=== PATIENT | male | born 1955 | race Caucasian/White ===

== ENCOUNTER → 2016-05-22 | Outpatient (CLI) | payer OTHER ==
[~2016-05-22] MED LIST: ALBU18002 INH; ALBU1AER9 INH; ASPI81TA28 PO; ATOR-26 PO; ATV/1 PO; BUPR10DI TOP; CYAN100048 SQ; CYM30 PO; DULO-24 PO; DULO60CA44 PO; ERGO50002 PO; FERR325T5 PO; FLNIN/ NAE; FLUT0.15 NAE; GEMF600T PO; LRS10 PO; METO25TA56 PO; NALO1SPR; NTRGSL4; OXYC-106 PO; OXYC1TAB3 PO; OXYC20TA32 PO; PANT40TA PO; POLY335019 PO; PRVHFAIN INH; TRAZ-120 PO; VNTHFA/IN INH; WLLXL300 PO
== END ==
LOC: C.LAB 02:24
DX: Z02.83 Encounter for blood-alcohol and blood-drug test (principal)

== ENCOUNTER 2016-06-06 18:22 | Emergency (ER) | payer OTHER ==
[~2016-06-06] VITALS: Ht 182.9 cm; Wt 100.6 kg
[~2016-06-06 18:22] MED LIST changes: -ALBU18002 INH; -ASPI81TA28 PO; -ATOR-26 PO; -BUPR10DI TOP; -CYAN100048 SQ; -DULO-24 PO; -DULO60CA44 PO; -ERGO50002 PO; -FERR325T5 PO; -FLUT0.15 NAE; -LRS10 PO; -NALO1SPR; -NTRGSL4; -OXYC1TAB3 PO; -PANT40TA PO; -POLY335019 PO; -PRVHFAIN INH; -TRAZ-120 PO; -VNTHFA/IN INH; -WLLXL300 PO
[2016-06-06 18:26] VITALS: TEMP 36.9; Ht 182.9 cm; Wt 100.6 kg
[2016-06-06] MEDS ORDERED: MoRPHine SULFATE 10 MG/ML CARP/VIAL IM STA (19:04)
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
[2016-06-06] MEDS ORDERED: ALBU18002 INH (19:50)
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
[2016-06-06 20:38] VITALS: BP 122/61; PULSE 61; O2SAT 97
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
[2016-10-11] MEDS ORDERED: TRAZ-120 PO (00:39)
[2016-10-11] MEDS ORDERED: PANT40TA PO (10:00)
[2016-10-11] MEDS ORDERED: WLLXL300 PO (10:04)
[2016-10-11] MEDS ORDERED: ATOR-26 PO (10:43)
[2016-10-11] MEDS ORDERED: ASPI81TA28 PO (10:43)
[2016-10-11] MEDS ORDERED: LRS10 PO (10:47)
[2016-10-11] MEDS ORDERED: OXYC-106 PO (11:28)
[2017-01-01] MEDS ORDERED: OXYC20TA32 PO (13:22)
== END 2016-06-06 20:40 | disposition home or self-care (01) ==
LOC: C.EDB 18:23 → C.EDD 20:40
DX: S06.0X0A Concussion without loss of consciousness, initial encounter (principal); S16.1XXA Strain of muscle, fascia and tendon at neck level, initial encounter; S39.012A Strain of muscle, fascia and tendon of lower back, initial encounter; T14.8 Other injury of unspecified body region; V47.5XXA Car driver injured in collision with fixed or stationary object in traffic accident, initial encounter; Y92.488 Other paved roadways as the place of occurrence of the external cause; I25.10 Atherosclerotic heart disease of native coronary artery without angina pectoris; E11.9 Type 2 diabetes mellitus without complications; E78.5 Hyperlipidemia, unspecified; M10.9 Gout, unspecified; M19.90 Unspecified osteoarthritis, unspecified site; G47.30 Sleep apnea, unspecified; Z80.9 Family history of malignant neoplasm, unspecified; Z83.3 Family history of diabetes mellitus; Z82.49 Family history of ischemic heart disease and other diseases of the circulatory system; F17.210 Nicotine dependence, cigarettes, uncomplicated; Z79.82 Long term (current) use of aspirin; Z79.899 Other long term (current) drug therapy

== ENCOUNTER → 2016-06-14 | Day surgery (SDC) | payer OTHER ==
[~2016-06-14] MED LIST changes: +ACETAMINOPHEN 325 MG TAB PO PRN; +ALBU18002 INH; -ALBU1AER9 INH; +ASPI81TA28 PO; +ATOR-26 PO; +ATROPINE SULFATE 0.1 MG/ML 5ML SYR IV PRN; +ATROPINE SULFATE 1% OP SOLN 2 ML BTL ONE; -ATV/1 PO; +BUPIVACAINE HCL 0.75% 10 ML AMP/VIAL ONE; +BUPR10DI TOP; +CEFAZOLIN SOD 1 GM VIAL ONE; +CYAN100048 SQ; +DEXAMETHASONE SOD INJ 4 MG/ML VIAL ONE; +DULO-24 PO; +DULO60CA44 PO; +ERGO50002 PO; +EpHEDrine SULFATE INJ 50 MG/ML AMP IV PRN; +EpINEphrine INJ 1MG/ML AMP 1 MG/ML AMP ONE; +FENTANYL CITRATE INJ 50 MCG/1 ML 2 ML VIAL IV PRN; +FERR325T5 PO; +FLUT0.15 NAE; -GEMF600T PO; +HYALURONIDASE HUMAN 150 UNIT/ML INJ ONE; +INDOCYANINE GREEN 25 MG/10 ML ONE; +LACTATED RINGER'S 1000ML 500 ML IV SCH; +LIDOCAINE HCL 2% 2 ML VIAL (20MG/ML) ONE; +LIDOCAINE MPF 4% INJ INJ ONE; +LRS10 PO; -METO25TA56 PO; +MIDAZOLAM HCL 1 MG/ML 2ML VIAL ONE; +NALO1SPR; +NEOMYCIN/POLYMYX/DEXAMETH OP OINT PER APP CHARGE ONE; +NTRGSL4; +ONDANSETRON INJ 2 MG/ML 2 ML VIAL IV PRN; +OXYC1TAB3 PO; +PANT40TA PO; +POLY335019 PO; +PROPARACAINE 0.5% OP SOLN PER DROP CHARGE OPR SCH; +PROPOFOL IV EMULSION 10 MG/ML 20 ML VIAL IV ONE; +PRVHFAIN INH; +TETRACAINE HCL (OPHTH) 60 DROPS/4 ML BTL OP ONE; +TIMOLOL MALEATE 0.5% OP SOLN PER DROP CHARGE ONE; +TRAZ-120 PO; +TRIAMCINOLONE ACETONIDE OPHTH 40 MG/ML VIAL STERILE IO ONE; +VNTHFA/IN INH; +WLLXL300 PO
[2016-06-14] MEDS: PHENYLEPHRINE HCL 2.5% OP SOLN PER DROP CHARGE OPR SCH ×2 (11:41→11:46)
[2016-06-14] MEDS: TROPICAMIDE 1% OP SOLN PER DROP CHARGE OPR SCH (11:42)
--- NOTE | 2016-06-14 12:06 | History & Physical Bridge - SC ---
H&P Re-Evaluation Bridge Note: pt has retinal detachment in right eye and is here for vitrectomy of right eye. I have examined the patient, reviewed the History & Physical and in the interval since the performance of the History & Physical I have noted the following changes of clinical significance: No changes noted
--- NOTE | 2016-06-14 13:30 | [facility] Operative Report ---
Operative Report Date of Service Jun 14, 2016. Operative Report PREOPERATIVE DIAGNOSIS: Retinal detachment, vitreous hemorrhage right eye. ICD 10: H33.021 POSTOPERATIVE DIAGNOSIS: same. PROCEDURE: 1. Pars plana vitrectomy, 23 gauge. 2. Fluid-air exchange. 3. Endolaser. 4 Air-gas exchange with C3F8 12%. All to the right eye. CPT CODE: 40487 SURGEON: Jermaine Asher D.O. COMPLICATIONS: None. ESTIMATED BLOOD LOSS: None. SPECIMENS: None. ANESTHESIA: Retrobulbar block and MAC. INDICATIONS FOR PROCEDURE: Surgery is indicated to decrease risk of vision loss and potentially improve vision. CONSENT: The risks, benefits and alternatives were discussed with the patient including but not limited to decreased visual acuity, failure to achieve desired results, loss of the eye, infection, pain, glaucoma, lens changes, retinal tears, retinal detachment, the need for more procedures, drooping of the eyelid, blindness, and double vision. The patient is aware of risks and consents to the surgery. Consent is signed and on the chart. OPERATION AND FINDINGS: The patient was brought to the operating room where the patient was identified by name, date, and medical record number. The surgical site was confirmed with the informed written consent. The patient was sedated by the anesthesiology team after which a 50:50 mixture of 4% lidocaine and 0.75% bupivacaine with hyaluronidase was administered in a standard retrobulbar fashion. A total of 4 ml was administered without difficulty. The patient was then prepped and draped in the usual sterile manner for retinal surgery. A wire lid speculum was placed and an Nick 23-gauge trocar cannula system was employed. The inferior temporal trocar cannula was first placed in an angled fashion 3.75mm posterior to the surgical limbus and the infusion cannula was inserted into this cannula after which the intravitreal position was verified prior to turning the infusion on. Two more trocar cannulas were then inserted in an angled fashion, one in the superior temporal, and one in the superior nasal quadrant both 3.75mm posterior to the surgical limbus. A light pipe and vitrector were then introduced into the eye and the BIOM wide angle viewing system was brought into place. Posterior inspection revealed a dense vitreous hemorrhage and a retinal detachment from 8 to 2 o'clock with retinal breaks at 11:30 and 1 o'clock and the detachment extended into the superior macula but the fovea appeared flat. Standard core vitrectomy was performed and the vitreous was insured to be totally detached from the posterior pole with the aid of the vitrector. The vitreous base was shaved for 360 degrees. At this point scleral depression was performed for 360 degrees and no other retinal tears were noted. Fluid air exchange was performed and the subretinal fluid was drained through a small retinotomy site that was fashioned superior to the arcades. Endolaser was then used to place laser around the inciting retinal break and the drainage retinotomy. Next, an air gas exchange was performed with C3F8 12% for a complete fill of the eye. The trocar cannulas were then removed and found to be air tight. The intraocular pressure was found to be within normal limits by palpation and subconjunctival injections of Kefzol and dexamethasone were administered inferiorly and superiorly. The wire lid speculum was removed. Maxitrol, atropine and timolol were applied to the surface of the eye. A light patch and shield were taped over the surface of the eye and the patient left the Operating Room in stable condition having tolerated the procedure well. DISPOSITION: A gas bracelet was placed on the patient's wrist and gas precautions reviewed as well as the positioning instructions. The patient has an appointment the following morning in the Ophthalmology Clinic. The patient is to call immediately if there are any problems overnight. I attest to the content of the Intraoperative Record and any orders documented therein. Any exceptions are noted below.
[2016-06-14 13:31] VITALS: TEMP 36.2
--- NOTE | 2016-06-14 13:31 | Discharge Instructions-SurgCtr ---
Discharge Instructions Date of Service Jun 14, 2016. Visit Reason for Visit: Right Eye Retinal Detachment Discharge Discharge Diagnosis / Problem: same Discharge Goals Goal(s): Improve function Activity Recommendations Activity Limitations: per Instructions/Follow-up section Anesthesia . Post Anesthesia Instructions: If you have had General Anesthesia or IV Sedation: * Do not drive today. * Resume driving when surgeon permits. * Do not make important decisions or sign legal documents today. * Call surgeon for: 1. Temperature elevations greater than 101 degrees F. 2. Uncontrollable pain. 3. Excessive bleeding. 4. Persistent nausea and vomiting. 5. Medication intolerance (nausea, vomiting or rash). * For nausea and vomiting use only clear liquids such as: tea, soda, bouillon until nausea subsides, then gradually increase diet as tolerated. * If you have any concerns or questions, call your surgeon's office. If physician is unavailable and it is an emergency, call 911 or go to the nearest emergency room. . Instructions / Follow-Up Instructions / Follow-Up * May take Tylenol if needed for discomfort. * Do NOT lay flat on back and position head as follows: face forward chin down. may sleep left side down * Do NOT remove green bracelet until instructed to do so by your surgeon and follow these precautions: * No air travel * No travel above 2500 feet * No nitrous oxide (N2O). * Do NOT remove eye shield. * NO straining, heavy lifting (>15 pounds) or bending below waist. * Avoid getting water or soap directly into operative eye. * Do NOT rub eye. If you experience increasing eye pain not relieved by medication, please contact us immediately at [phone]. If you are unable to reach someone at the above number, call [phone] and ask to speak with the EYE DOCTOR CIVIL ENGINEER'S AIDE. Inform them that you are a Dr. Asher patient who had recent surgery. Diet Recommendations Home Diet: resume previous diet Procedures Procedures Performed: Right Eye 23 Gauge Vitrectomy, Endolaser And Gas Insertion Pending Studies Studies pending at discharge: no Medical Emergencies . Who to Call and When: Medical Emergencies: If at any time you feel your situation is an emergency, please call 911 immediately. . Non-Emergent Contact Non-Emergency issues call your: Trailhead Maintenance Worker . . "Provider Documentation" section prepared by Jermaine Asher. .
[2016-06-14 13:55] VITALS: BP 103/56; PULSE 55; O2SAT 95
--- NOTE | 2016-06-14 14:00 | Anesthesia Progress Nt - [facility] ---
Anesthesia Post Op Note Date & Time Jun 14, 2016 at 14:00 Vital Signs Pain Intensity: 4 Vital Signs Past 12 Hours Date Time Temp Pulse Resp B/P Pulse Ox O2 Delivery O2 Flow Rate FiO2 06/14/16 13:31 36.2 84 14 119/68 97 Room Air 06/14/16 11:33 37.0 59 18 119/72 94 Room Air Notes Mental Status: alert / awake / arousable, participated in evaluation Pt Amnestic to Procedure: Yes Nausea / Vomiting: adequately controlled Pain: adequately controlled Airway Patency, RR, SpO2: stable & adequate BP & HR: stable & adequate Hydration State: stable & adequate Anesthetic Complications: no major complications apparent
== END | disposition home or self-care (01) ==
LOC: X.SURG 11:17
PROVIDERS: ATTEND Ophthalmology
DX: H33.021 Retinal detachment with multiple breaks, right eye (principal); E66.9 Obesity, unspecified; I25.10 Atherosclerotic heart disease of native coronary artery without angina pectoris; E11.9 Type 2 diabetes mellitus without complications; E78.5 Hyperlipidemia, unspecified; M10.9 Gout, unspecified; G47.30 Sleep apnea, unspecified; F17.200 Nicotine dependence, unspecified, uncomplicated; Z83.3 Family history of diabetes mellitus; Z82.49 Family history of ischemic heart disease and other diseases of the circulatory system

== ENCOUNTER 2016-10-11 15:37 | Observation (INO) | payer OTHER ==
[~2016-10-11] VITALS: Ht 182.9 cm; Wt 102.1 kg
[~2016-10-11 15:37] MED LIST changes: -ACETAMINOPHEN 325 MG TAB PO PRN; -ATROPINE SULFATE 0.1 MG/ML 5ML SYR IV PRN; -ATROPINE SULFATE 1% OP SOLN 2 ML BTL ONE; -BUPIVACAINE HCL 0.75% 10 ML AMP/VIAL ONE; -BUPR10DI TOP; -CEFAZOLIN SOD 1 GM VIAL ONE; -CYAN100048 SQ; -DEXAMETHASONE SOD INJ 4 MG/ML VIAL ONE; -DULO-24 PO; -DULO60CA44 PO; -ERGO50002 PO; -EpHEDrine SULFATE INJ 50 MG/ML AMP IV PRN; -EpINEphrine INJ 1MG/ML AMP 1 MG/ML AMP ONE; -FENTANYL CITRATE INJ 50 MCG/1 ML 2 ML VIAL IV PRN; -FERR325T5 PO; -FLUT0.15 NAE; -HYALURONIDASE HUMAN 150 UNIT/ML INJ ONE; -INDOCYANINE GREEN 25 MG/10 ML ONE; -LACTATED RINGER'S 1000ML 500 ML IV SCH; -LIDOCAINE HCL 2% 2 ML VIAL (20MG/ML) ONE; -LIDOCAINE MPF 4% INJ INJ ONE; -MIDAZOLAM HCL 1 MG/ML 2ML VIAL ONE; -NALO1SPR; -NEOMYCIN/POLYMYX/DEXAMETH OP OINT PER APP CHARGE ONE; -NTRGSL4; -ONDANSETRON INJ 2 MG/ML 2 ML VIAL IV PRN; -OXYC1TAB3 PO; -OXYC20TA32 PO; -POLY335019 PO; -PROPARACAINE 0.5% OP SOLN PER DROP CHARGE OPR SCH; -PROPOFOL IV EMULSION 10 MG/ML 20 ML VIAL IV ONE; -PRVHFAIN INH; -TETRACAINE HCL (OPHTH) 60 DROPS/4 ML BTL OP ONE; -TIMOLOL MALEATE 0.5% OP SOLN PER DROP CHARGE ONE; -TRAZ-120 PO; +TRAZ1TAB5 PO; -TRIAMCINOLONE ACETONIDE OPHTH 40 MG/ML VIAL STERILE IO ONE; -VNTHFA/IN INH
[2016-10-11] MEDS ORDERED: SODIUM CHLORIDE 0.9% 1000ML 1,000 ML IV STA (16:09)
[2016-10-11] MEDS ORDERED: ONDANSETRON 8 MG/54 ML D5W IV STA (16:09)
[2016-10-11] MEDS ORDERED: PANTOprazole INJ 40 MG in SYRINGE 0 ML IV ONE (16:15)
[2016-10-11] MEDS ORDERED: OPTIRAY 320 IV PRN (16:15)
[2016-10-11] MEDS ORDERED: POLY335019 PO (16:45)
[2016-10-11] MEDS ORDERED: FERR325T5 PO (16:45)
[2016-10-11] MEDS ORDERED: OXYC1TAB3 PO (16:45)
[2016-10-11] MEDS ORDERED: BUPR10DI TOP (16:45)
[2016-10-11 16:52] LABS: BASO % 0.4 %; BASO ABS # 0.04 K/uL (0-0.2); COMPLETE YES; EOS % 3.6 %; IG% 0.2 %; LYMPH % 17.5 %; LYMPH ABS # 1.64 K/uL (1.2-3.4); MEAN CELL VOLUME 84.4 fL (80-100); MEAN CORPUSCULAR HEMOGLOBIN 27.7 pg (25-34); MEAN CORPUSCULAR HGB CONC 32.8 g/dl (32-36); MEAN PLATELET VOLUME 10.2 fL (7.4-10.4); MONO % 5.1 %; NEUT % 73.2 %; PLATELET COUNT 203 K/uL (130-400); RED BLOOD COUNT 3.79 M/uL (4.7-6.1); WHITE BLOOD COUNT 9.36 K/uL (4.8-10.8)
[2016-10-11] MEDS ORDERED: DULO60CA44 PO (16:52)
[2016-10-11] MEDS ORDERED: FLUT0.15 NAE (16:52)
[2016-10-11] MEDS ORDERED: DULO-24 PO (16:52)
[2016-10-11] MEDS ORDERED: PRVHFAIN INH (16:54)
[2016-10-11 17:00] LABS: PROTHROMBIN TIME (PATIENT) 10.4 SECONDS (9.0-12.0)
[2016-10-11 17:12] LABS: ALT/SGPT 22 U/L (12-78); BLOOD UREA NITROGEN 37 mg/dl (7-18); CALCIUM 8.6 mg/dl (8.5-10.1); CARBON DIOXIDE 25 mmol/L (21-32); CHLORIDE 105 mmol/L (98-107); CREATININE 0.68 mg/dl (0.60-1.40); GLUCOSE 94 mg/dl (70-99); POTASSIUM 4.5 mmol/L (3.5-5.1); SODIUM 137 mmol/L (136-145)
[2016-10-11 17:16] LABS: ALKALINE PHOSPHATASE 71 U/L (45-117); AST/SGOT 18 U/L (15-37)
--- NOTE | 2016-10-11 17:41 | DIAGNOSTIC IMAGING REPORT ---
ANGIO ABD/PELVIS WITH CONTRAST CLINICAL HISTORY: 60 years-old Male presenting with abdominal and back pain, concern for gastrointestinal bleed. TECHNIQUE: Multidetector CT angiography of the abdomen and pelvis was performed after the administration of intravenous contrast. 3-D volumetric and/or maximum intensity projection (MIP) images were subsequently reconstructed for review. IV contrast: 94 mL of Optiray 320. A dose lowering technique was used consistent with the principles of ALARA (as low as reasonably achievable). COMPARISON: 08/20/2011. CT DOSE (mGy.cm): The estimated cumulative dose is 953.21 mGy.cm. FINDINGS: Internal Revenue Agent topogram: Unremarkable. Lung bases clear. Normal heart size. Coronary artery calcification are no pericardial or pleural effusion. Liver, gallbladder, pancreas, spleen, and adrenal glands normal allowing for phase of contrast. Well-defined hypodensities in the kidneys, some too small to characterize, but the left upper pole consistent with simple cyst. No hydronephrosis. Bladder incompletely distended. Uterus surgically absent. No adnexal masses. Postsurgical changes of antecolic Анна-en-Y gastric bypass. Both proximal and distal anastomoses patent. No bowel obstruction or evidence of complication. No free fluid or gas. Postsurgical changes along the right lower quadrant ventral abdominal wall. Resolution of prior proximal right thigh hematoma. No lymphadenopathy. Atherosclerosis of the abdominal aorta, which is normal in caliber. Celiac, superior mesenteric, bilateral single renal, inferior mesenteric, bilateral common and external iliac arteries patent. Bilateral common femoral and superficial and deep arteries patent. No extravasation of contrast into the bowel lumen to suggest site of active bleed. No high density intraluminal contents appreciated. Degenerative changes of the lumbar spine. IMPRESSION: No CT evidence of extravasation of intravascular contrast into the bowel lumen to suggest an active site of gastrointestinal hemorrhage. No acute intra-abdominal pathology. Atherosclerosis with patent vasculature. Postsurgical changes of antecolic Анна-en-Y gastric bypass without evidence of complication. Electronically signed by: Mahesh Fraga M.D. 10/11/2016 5:39 PM Dictated Date/Time: 10/11/2016 5:32 PM
[2016-10-11] MEDS ORDERED: FENTANYL CITRATE INJ 50 MCG/1 ML 2 ML VIAL IV STA (18:17)
[2016-10-11] MEDS ORDERED: ONDANSETRON INJ 2 MG/ML 2 ML VIAL IV PRN (19:00)
[2016-10-11] MEDS ORDERED: ALBUTEROL HFA 8 GM INHALER INH PRN (19:00)
[2016-10-11] MEDS ORDERED: ERGO50002 PO (19:08)
[2016-10-11] MEDS ORDERED: OXYC20TA32 PO (19:08)
[2016-10-11] MEDS ORDERED: NALO1SPR (19:08)
[2016-10-11] MEDS ORDERED: CYAN100048 SQ (19:08)
[2016-10-11] MEDS ORDERED: NTRGSL4 (19:08)
[2016-10-11] MEDS ORDERED: VNTHFA/IN INH (19:08)
[2016-10-11 20:25] VITALS: BP 114/69; PULSE 62; TEMP 36.9; O2SAT 98
[2016-10-11] MEDS ORDERED: IV FLUIDS COMPLETED PRN (20:30)
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
[2016-10-11] MEDS: PANTOprazole INJ 40 MG in SYRINGE 0 ML IV SCH (20:58)
[2016-10-11] MEDS ORDERED: BUPRENORPHINE 5 MCG/HR TDSY TD SCH (21:00)
[2016-10-11] MEDS: SODIUM CHLORIDE 0.9% 1000ML 1,000 ML IV SCH (21:00)
[2016-10-11] MEDS ORDERED: GLUCAGON FOR INJ 1 MG VIAL SQ PRN (21:00)
[2016-10-11] MEDS ORDERED: DEXTROSE 50% 50 ML SYR IV PRN (21:00)
[2016-10-11] MEDS ORDERED: GLUCOSE 40% GEL 15 GM TUBE PO PRN (21:00)
[2016-10-11] MEDS ORDERED: GLUCOSE 10 TABS/TUBE PO PRN (21:00)
[2016-10-11] MEDS: INSULIN ASPART 100 UNITS/ML 3 ML PEN SC SCH (21:00)
[2016-10-11] MEDS ORDERED: NURSING VERBAL MED ORDER ONE (21:45)
[2016-10-11] MEDS ORDERED: HYDROmorphone INJ 0.5 MG/0.5 ML SYR IV PRN (21:45)
[2016-10-11 23:14] VITALS: BP 114/69; PULSE 62; TEMP 36.9; O2SAT 96; Ht 182.9 cm; Wt 102.1 kg
[2016-10-11 23:17] VITALS: BP 114/65; PULSE 63; TEMP 37.1; O2SAT 96
[2016-10-11 23:25] LABS: HEMATOCRIT 28.1 % (42-52)
[2016-10-12] VITALS (13 sets, daily range): BP systolic 101–134; BP diastolic 59–70; PULSE 51–75; TEMP 36.4–37; O2SAT 95–100
[2016-10-12] MEDS: HYDROmorphone INJ 0.5 MG/0.5 ML SYR IV PRN ×5 (01:27→19:51)
[2016-10-12] MEDS ORDERED: HYDROmorphone INJ 0.5 MG/0.5 ML SYR IV PRN (04:00)
[2016-10-12] MEDS: SODIUM CHLORIDE 0.9% 1000ML 1,000 ML IV SCH ×2 (05:47→15:43)
[2016-10-12] MEDS: INSULIN ASPART 100 UNITS/ML 3 ML PEN SC SCH ×4 (06:30→20:01)
[2016-10-12] MEDS: PANTOprazole INJ 40 MG in SYRINGE 0 ML IV SCH ×2 (08:18→19:50)
[2016-10-12 10:55] LABS: BUN/CREATININE RATIO 45.3 (10-20); CALCIUM 7.9 mg/dl (8.5-10.1); CREATININE 0.6 mg/dl (0.60-1.40); PHOSPHORUS 3.1 mg/dl (2.5-4.9); POTASSIUM 3.8 mmol/L (3.5-5.1)
[2016-10-12 11:20] LABS: HEMATOCRIT 25.3 % (42-52)
[2016-10-12] MEDS: OXYCODONE HCL IR 5 MG TAB (IMMEDIATE RELEASE) PO PRN ×3 (13:25→22:01)
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
[2016-10-12] MEDS: FENTANYL CITRATE INJ 50 MCG/1 ML 2 ML VIAL ONE ×2 (14:33→15:41)
[2016-10-12] MEDS: MIDAZOLAM HCL 5 MG/ML 1 ML VIAL ONE ×2 (14:34→15:41)
[2016-10-12] MEDS ORDERED: MIDAZOLAM HCL 5 MG/ML 1 ML VIAL IV STA (14:45)
[2016-10-12] MEDS ORDERED: FENTANYL CITRATE INJ 50 MCG/1 ML 2 ML VIAL IV ONE (14:45)
--- NOTE | 2016-10-12 15:11 | GI REPORT ---
Procedure Date: 10/12/2016 2:56 PM Procedure: Upper GI endoscopy Indications: Melena Medicines: See the Anesthesia note for documentation of the administered medications Complications: No immediate complications. Estimated Blood Loss: Estimated blood loss: none. Procedure: Pre-Anesthesia Assessment: - ASA Grade Assessment: III - A patient with severe systemic disease. After obtaining informed consent, the endoscope was passed under direct vision. Throughout the procedure, the patient's blood pressure, pulse, and oxygen saturations were monitored continuously. The scope was introduced through the mouth, and advanced to the afferent jejunal loop. The upper GI endoscopy was accomplished without difficulty. The patient tolerated the procedure well. Findings: The gastroesophageal junction was normal. There was a gastroenteric anastamosis. There was a large cratered clean based ulcer on the gastric side of the anastamosis. A staple was seen at the anastamosis. The stomach pouch was otherwise unremarkable. The small intestine was normal. Impression: Clean based anastamotic ulcer. Recommendation: Pt is at low risk for recurrent bleed. Clear liquids only today and plan for d/c tomorrow. Please consider giving IV iron prior to discharge. Plan to discharge on BID PPI x 8 weeks, then repeat EGD in 8-10 weeks to survey site. Check Hp stool antigen. - Discharge patient to floor. Laurel Kessler M.D. Laurel Kessler MD 10/12/2016 3:10:37 PM This report has been signed electronically. Note Initiated On: 10/12/2016 2:56 PM I attest to the content of the Intraoperative Record and orders documented therein, exceptions below
--- NOTE | 2016-10-12 15:36 | Progress Note ---
Internal Med Progress Note Date of Service: Oct 12, 2016. Provider Documentation: SUBJECTIVE: The patient was seen and examined Admitted with symptomatic GI bleed Denies and Chest pain,palpitation or SOB Complains to have some pain in RLQ OBJECTIVE: Vital Signs-as noted below Exam: General-No distress at rest Anxious Eyes-normal ENT-normal Neck-supple Lungs-clear to ausucltate bilaterally Heart-Regular,no murmur Abdomen-Soft.mildly tender in RLQ .no guarding and or rigidity Extremities-No edema Neuro-AAOx3 Lab data as noted below. ASSESSMENT & PLAN: GI BLEED -Probable upper GI source; hx gastric bypass; hx upper GIB gastro-jejunal ulcer in 07/2015 -Hemodynamically stable; Hg is 10.5 (baseline 11's) -CTA A/P- No CT evidence of extravasation of intravascular contrast into the bowel lumen to suggest an active site of gastrointestinal hemorrhage. No acute intra-abdominal pathology. Atherosclerosis with patent vasculature. Postsurgical changes of antecolic Анна-en-Y gastric bypass without evidence of complication. Has been on NPO; IVF's; IV Protonix BID Hb Dropped to 8.3 this morning Appreciate GI input S/P EGD-No active bleeding area noted Continue BID PPI for 8 weeks IV Iron before discharge CAD S/P STENT 2011 Stable, no chest pain Aspirin held for GIB Continue statin No acute Chest pain HYPERTENSION BP is stable Not on antihypertensive at home DM TYPE 2 Diet controlled A1c 5.3 in 07/2016 Novolog sliding scale coverage CHRONIC PAIN Continue chronic oxycodone and buprenorphine patch [place] drug database queried; no issues identified Continue Home medication ,will try to limit any Extra narcotics SLEEP APNEA Continue CPAP DVT PROPHYLAXIS SCD's due to GIB FULL CODE DISPOSITION Observation telemetry Follows with Dr. Villarreal for primary care Vital Signs: Date Time Temp Pulse Resp B/P (MAP) Pulse Ox O2 Delivery O2 Flow Rate FiO2 10/12/16 15:00 60 20 97/32 97 Nasal Cannula 7 10/12/16 14:55 60 20 103/63 97 Nasal Cannula 5 10/12/16 14:48 51 20 112/60 96 Nasal Cannula 5 10/12/16 14:40 52 20 110/62 (78) 100 Nasal Cannula 4 10/12/16 13:50 Room Air 10/12/16 12:00 96 Room Air 10/12/16 11:09 36.9 57 16 108/59 (75) 97 10/12/16 08:04 36.4 60 16 134/63 (86) 100 10/12/16 08:00 96 Room Air 10/12/16 04:00 Room Air 10/12/16 04:00 36.4 59 18 105/59 (74) 96 Room Air 10/12/16 00:00 Room Air 10/11/16 23:17 37.1 63 20 114/65 (81) 96 Room Air 10/11/16 23:14 36.9 62 16 114/69 96 Room Air 10/11/16 20:25 36.9 62 16 114/69 (84) 98 Room Air 10/11/16 17:35 68 18 127/54 99 Room Air 10/11/16 15:40 36.5 91 18 111/74 97 Room Air Lab Results: Results Past 24 Hours Test 10/11/16 16:27 10/11/16 20:59 10/11/16 23:05 10/12/16 00:27 Range/Units White Blood Count 9.36 4.8-10.8 K/uL Red Blood Count 3.79 4.7-6.1 M/uL Hemoglobin 10.5 9.2 14.0-18.0 g/dL Hematocrit 32.0 28.1 42-52 % Mean Corpuscular Volume 84.4 80-100 fL Mean Corpuscular Hemoglobin 27.7 25-34 pg Mean Corpuscular Hemoglobin Concent 32.8 32-36 g/dl Platelet Count 203 130-400 K/uL Mean Platelet Volume 10.2 7.4-10.4 fL Neutrophils (%) (Auto) 73.2 % Lymphocytes (%) (Auto) 17.5 % Monocytes (%) (Auto) 5.1 % Eosinophils (%) (Auto) 3.6 % Basophils (%) (Auto) 0.4 % Neutrophils # (Auto) 6.84 1.4-6.5 K/uL Lymphocytes # (Auto) 1.64 1.2-3.4 K/uL Monocytes # (Auto) 0.48 0.11-0.59 K/uL Eosinophils # (Auto) 0.34 0-0.5 K/uL Basophils # (Auto) 0.04 0-0.2 K/uL RDW Standard Deviation 47.2 36.4-46.3 fL RDW Coefficient of Variation 15.2 11.5-14.5 % Immature Granulocyte % (Auto) 0.2 % Immature Granulocyte # (Auto) 0.02 0.00-0.02 K/uL Prothrombin Time 10.4 9.0-12.0 SECONDS Prothromb Time International Ratio 1.0 0.9-1.1 Sodium Level 137 136-145 mmol/L Potassium Level 4.5 3.5-5.1 mmol/L Chloride Level 105 98-107 mmol/L Carbon Dioxide Level 25 21-32 mmol/L Anion Gap 7.0 3-11 mmol/L Blood Urea Nitrogen 37 7-18 mg/dl Creatinine 0.68 0.60-1.40 mg/dl Est Creatinine Clear Calc Drug Dose 143.9 ml/min Estimated GFR () 121.2 Estimated GFR (Non- 104.5 BUN/Creatinine Ratio 55.0 10-20 Random Glucose 94 70-99 mg/dl Lactic Acid Level 0.7 0.4-2.0 mmol/L Calcium Level 8.6 8.5-10.1 mg/dl Total Bilirubin 0.3 0.2-1 mg/dl Aspartate Amino Transf (AST/SGOT) 18 15-37 U/L Alanine Aminotransferase (ALT/SGPT) 22 12-78 U/L Alkaline Phosphatase 71 45-117 U/L Troponin I < 0.015 0-0.045 ng/ml Total Protein 6.8 6.4-8.2 gm/dl Albumin 3.4 3.4-5.0 gm/dl Globulin 3.4 2.5-4.0 gm/dl Albumin/Globulin Ratio 1.0 0.9-2 Bedside Glucose 87 98 70-99 mg/dl Test 10/12/16 00:53 10/12/16 05:13 10/12/16 05:52 10/12/16 11:10 Range/Units Bedside Glucose 98 88 70-99 mg/dl Hemoglobin 8.5 8.3 14.0-18.0 g/dL Hematocrit 26.0 25.3 42-52 % Sodium Level 141 136-145 mmol/L Potassium Level 3.8 3.5-5.1 mmol/L Chloride Level 109 98-107 mmol/L Carbon Dioxide Level 28 21-32 mmol/L Anion Gap 4.0 3-11 mmol/L Blood Urea Nitrogen 27 7-18 mg/dl Creatinine 0.60 0.60-1.40 mg/dl Est Creatinine Clear Calc Drug Dose 162.4 ml/min Estimated GFR () 127.6 Estimated GFR (Non- 110.1 BUN/Creatinine Ratio 45.3 10-20 Random Glucose 82 70-99 mg/dl Calcium Level 7.9 8.5-10.1 mg/dl Phosphorus Level 3.1 2.5-4.9 mg/dl Magnesium Level 2.0 1.8-2.4 mg/dl Test 10/12/16 11:53 Range/Units Bedside Glucose 96 70-99 mg/dl
[2016-10-12 17:35] LABS: HEMATOCRIT 25.6 % (42-52)
[2016-10-13] VITALS (12 sets, daily range): BP systolic 97–148; BP diastolic 53–69; PULSE 47–67; TEMP 35.7–37.1; O2SAT 96–100
[2016-10-13] MEDS: SODIUM CHLORIDE 0.9% 1000ML 1,000 ML IV SCH ×3 (01:35→22:26)
[2016-10-13] MEDS: OXYCODONE HCL IR 5 MG TAB (IMMEDIATE RELEASE) PO PRN ×6 (02:06→22:26)
[2016-10-13] MEDS: HYDROmorphone INJ 0.5 MG/0.5 ML SYR IV PRN ×6 (04:56→21:02)
[2016-10-13 06:59] LABS: HEMATOCRIT 25.5 % (42-52); MEAN CELL VOLUME 86.7 fL (80-100); MEAN CORPUSCULAR HEMOGLOBIN 26.9 pg (25-34); MEAN PLATELET VOLUME 9.5 fL (7.4-10.4); PLATELET COUNT 152 K/uL (130-400); RED BLOOD COUNT 2.94 M/uL (4.7-6.1); WHITE BLOOD COUNT 4.45 K/uL (4.8-10.8)
[2016-10-13 07:38] LABS: CALCIUM 7.8 mg/dl (8.5-10.1); CREATININE 0.63 mg/dl (0.60-1.40); POTASSIUM 3.8 mmol/L (3.5-5.1)
[2016-10-13] MEDS: PANTOprazole INJ 40 MG in SYRINGE 0 ML IV SCH (08:10)
[2016-10-13] MEDS: INSULIN ASPART 100 UNITS/ML 3 ML PEN SC SCH ×4 (08:11→20:57)
--- NOTE | 2016-10-13 10:36 | Progress Note ---
Progress Note Date of Service Oct 13, 2016. Progress Note Labs noted. Labs show mild drop in hgb - this is accompanied by a drop in WBC and platelet count that suggests that this change may be due to hemodilution. Diet advanced by PCP. He had a clean based ulcer on EGD yesterday, and is considered low risk for further bleed. Will give IV iron prior to d/c; he has also been ordered 1 U PRBC by hospitalist. Ok for d/c today once infusions complete. Please d/c on BID PPI; he also takes oral iron is on B12 supplementation. I will arrange for f/u EGD in 8 weeks.
[2016-10-13] MEDS ORDERED: POLYETHYLENE (MIRALAX) 17 GM PACK PO PRN (10:45)
[2016-10-13] MEDS: ATORVASTATIN 40 MG TAB PO SCH (12:02)
[2016-10-13] MEDS: PANTOprazole SOD 40 MG TAB PO SCH (12:02)
[2016-10-13] MEDS: BuPROPion XL 300 MG TABCR PO SCH (12:02)
[2016-10-13] MEDS: ASPIRIN 81 MG ECTAB PO SCH (12:02)
[2016-10-13] MEDS: BACLOFEN 10 MG TAB PO SCH ×2 (12:04→20:58)
--- NOTE | 2016-10-13 12:36 | Progress Note ---
Internal Med Progress Note Date of Service: Oct 13, 2016. Provider Documentation: SUBJECTIVE: The patient was seen and examined Admitted with symptomatic GI bleed Denies and Chest pain,palpitation or SOB S/P EGD -no bleeding ulcers OBJECTIVE: Vital Signs-as noted below Exam: General-No distress at rest Anxious Eyes-normal ENT-normal Neck-supple Lungs-clear to ausucltate bilaterally Heart-Regular,no murmur Abdomen-Soft.mildly tender in RLQ .no guarding and or rigidity Extremities-No edema Neuro-AAOx3 Lab data as noted below. ASSESSMENT & PLAN: GI BLEED-Recurrent and stopped -Probable upper GI source; hx gastric bypass; hx upper GIB gastro-jejunal ulcer in 07/2015 -Hemodynamically stable; Hg is 10.5 (baseline 11's) -CTA A/P- No CT evidence of extravasation of intravascular contrast into the bowel lumen to suggest an active site of gastrointestinal hemorrhage. No acute intra-abdominal pathology. Atherosclerosis with patent vasculature. Postsurgical changes of antecolic Анна-en-Y gastric bypass without evidence of complication. Has been on NPO; IVF's; IV Protonix BID Hb Dropped to 8.3 this morning Appreciate GI input S/P EGD-No active bleeding area noted Continue BID PPI for 8 weeks IV Iron before discharge-0rdered Hb dropped to <8.0 Will give 1 unit of PRBC CAD S/P STENT 2011 Stable, no chest pain Aspirin held for GIB Continue statin No acute Chest pain HYPERTENSION BP is stable Not on antihypertensive at home DM TYPE 2 Diet controlled A1c 5.3 in 07/2016 Novolog sliding scale coverage CHRONIC PAIN Continue chronic oxycodone and buprenorphine patch [place] drug database queried; no issues identified Continue Home medication ,will try to limit any Extra narcotics SLEEP APNEA Continue CPAP DVT PROPHYLAXIS SCD's due to GIB FULL CODE DISPOSITION Observation telemetry Follows with Dr. Villarreal for primary care Likely discharge this afternoon Vital Signs: Date Time Temp Pulse Resp B/P (MAP) Pulse Ox O2 Delivery O2 Flow Rate FiO2 10/13/16 12:28 Room Air 10/13/16 11:30 36.9 54 18 109/53 97 10/13/16 11:09 37.1 67 18 111/57 99 10/13/16 10:53 36.6 67 20 132/54 (80) 100 Room Air 10/13/16 08:15 Room Air 10/13/16 08:13 36.4 53 16 102/60 (74) 96 10/13/16 04:20 36.3 55 19 110/63 (79) 98 Room Air 10/13/16 04:00 Room Air 10/13/16 00:01 36.7 60 18 148/62 (90) 96 Room Air 10/13/16 00:00 Room Air 10/12/16 20:00 Room Air 10/12/16 20:00 36.6 58 18 118/60 (79) 98 Room Air 10/12/16 19:00 37.0 59 18 127/70 (89) 95 Room Air 10/12/16 18:16 36.7 75 16 110/59 (76) 98 10/12/16 18:16 36.7 75 16 110/59 (76) 98 10/12/16 17:14 36.8 53 16 110/61 (77) 96 10/12/16 16:41 36.6 54 17 114/62 (79) 97 10/12/16 16:17 36.5 51 16 101/59 (73) 96 10/12/16 16:16 36.9 55 17 111/65 (80) 97 10/12/16 16:00 97 Room Air 10/12/16 15:32 58 20 105/50 (68) 97 Room Air 10/12/16 15:18 58 20 108/53 (71) 100 Nasal Cannula 4 10/12/16 15:05 54 20 101/74 (83) 100 Nasal Cannula 4 10/12/16 15:00 60 20 97/32 97 Nasal Cannula 7 10/12/16 14:55 60 20 103/63 97 Nasal Cannula 5 10/12/16 14:48 51 20 112/60 96 Nasal Cannula 5 10/12/16 14:40 52 20 110/62 (78) 100 Nasal Cannula 4 10/12/16 13:50 Room Air Lab Results: Results Past 24 Hours Test 10/12/16 17:01 10/12/16 17:08 10/12/16 19:56 10/13/16 00:05 Range/Units Hemoglobin 8.4 14.0-18.0 g/dL Hematocrit 25.6 42-52 % Bedside Glucose 89 105 110 70-99 mg/dl Test 10/13/16 06:24 10/13/16 07:45 10/13/16 11:35 Range/Units White Blood Count 4.45 4.8-10.8 K/uL Red Blood Count 2.94 4.7-6.1 M/uL Hemoglobin 7.9 14.0-18.0 g/dL Hematocrit 25.5 42-52 % Mean Corpuscular Volume 86.7 80-100 fL Mean Corpuscular Hemoglobin 26.9 25-34 pg Mean Corpuscular Hemoglobin Concent 31.0 32-36 g/dl RDW Standard Deviation 48.7 36.4-46.3 fL RDW Coefficient of Variation 15.2 11.5-14.5 % Platelet Count 152 130-400 K/uL Mean Platelet Volume 9.5 7.4-10.4 fL Sodium Level 143 136-145 mmol/L Potassium Level 3.8 3.5-5.1 mmol/L Chloride Level 110 98-107 mmol/L Carbon Dioxide Level 30 21-32 mmol/L Anion Gap 3.0 3-11 mmol/L Blood Urea Nitrogen 13 7-18 mg/dl Creatinine 0.63 0.60-1.40 mg/dl Est Creatinine Clear Calc Drug Dose 155.1 ml/min Estimated GFR () 125.0 Estimated GFR (Non- 107.9 BUN/Creatinine Ratio 20.0 10-20 Random Glucose 91 70-99 mg/dl Calcium Level 7.8 8.5-10.1 mg/dl Phosphorus Level 3.0 2.5-4.9 mg/dl Magnesium Level 2.0 1.8-2.4 mg/dl Bedside Glucose 103 120 70-99 mg/dl
[2016-10-13] MEDS ORDERED: IRON SUCROSE INJ 200 MG in SODIUM CHLORIDE 0.9% 100ML 100 ML IV SCH (14:00)
[2016-10-13] MEDS: DULOXETINE HCL 60 MG CAP PO SCH (14:12)
[2016-10-13] MEDS: DULOXETINE HCL 20 MG CAP PO SCH (14:12)
[2016-10-13] MEDS: FERROUS SULFATE 325 MG TAB PO SCH (20:58)
[2016-10-13] MEDS ORDERED: TRAZODONE HCL 50 MG TAB PO SCH ×2 (21:00)
[2016-10-13] MEDS ORDERED: NURSING VERBAL MED ORDER ONE (22:00)
[2016-10-14] MEDS: HYDROmorphone INJ 0.5 MG/0.5 ML SYR IV PRN (02:10)
[2016-10-14] MEDS: OXYCODONE HCL IR 5 MG TAB (IMMEDIATE RELEASE) PO PRN ×3 (03:33→12:41)
[2016-10-14 04:25] VITALS: BP 114/69; PULSE 49; TEMP 36.3; O2SAT 98
[2016-10-14 07:39] VITALS: BP 121/72; PULSE 43; TEMP 36.5; O2SAT 97
[2016-10-14 08:00] VITALS: O2SAT 97
[2016-10-14] MEDS: DULOXETINE HCL 20 MG CAP PO SCH (08:11)
[2016-10-14] MEDS: BACLOFEN 10 MG TAB PO SCH ×2 (08:12→14:45)
[2016-10-14] MEDS: BuPROPion XL 300 MG TABCR PO SCH (08:12)
[2016-10-14] MEDS: ATORVASTATIN 40 MG TAB PO SCH (08:13)
[2016-10-14] MEDS: ASPIRIN 81 MG ECTAB PO SCH (08:14)
[2016-10-14] MEDS: PANTOprazole SOD 40 MG TAB PO SCH (08:14)
[2016-10-14] MEDS: FERROUS SULFATE 325 MG TAB PO SCH (08:14)
[2016-10-14] MEDS: DULOXETINE HCL 60 MG CAP PO SCH (08:15)
[2016-10-14] MEDS: INSULIN ASPART 100 UNITS/ML 3 ML PEN SC SCH ×2 (08:24→11:00)
[2016-10-14] MEDS: SODIUM CHLORIDE 0.9% 1000ML 1,000 ML IV SCH (08:27)
[2016-10-14] MEDS ORDERED: NURSING VERBAL MED ORDER ONE (08:45)
[2016-10-14 08:49] LABS: HEMATOCRIT 29.8 % (42-52); MEAN CELL VOLUME 87.6 fL (80-100); MEAN CORPUSCULAR HEMOGLOBIN 27.4 pg (25-34); MEAN CORPUSCULAR HGB CONC 31.2 g/dl (32-36); MEAN PLATELET VOLUME 9.7 fL (7.4-10.4); PLATELET COUNT 129 K/uL (130-400); WHITE BLOOD COUNT 4.47 K/uL (4.8-10.8)
[2016-10-14] MEDS ORDERED: FLUTICASONE PROPIONATE NA SPR 16 GM BTL NAE SCH (09:00)
--- NOTE | 2016-10-14 09:42 | Progress Note ---
Internal Med Progress Note Date of Service: Oct 14, 2016. Provider Documentation: SUBJECTIVE: The patient was seen and examined Admitted with symptomatic GI bleed Denies and Chest pain,palpitation or SOB S/P EGD -no bleeding ulcers Clinically much better today and willing to go home today OBJECTIVE: Vital Signs-as noted below Exam: General-No distress at rest Anxious Eyes-normal ENT-normal Neck-supple Lungs-clear to ausucltate bilaterally Heart-Regular,no murmur Abdomen-Soft.mildly tender in RLQ .no guarding and or rigidity Extremities-No edema Neuro-AAOx3 Lab data as noted below. ASSESSMENT & PLAN: GI BLEED-Recurrent and stopped -Probable upper GI source; hx gastric bypass; hx upper GIB gastro-jejunal ulcer in 07/2015 -Hemodynamically stable; Hg is 10.5 (baseline 11's) -CTA A/P- No CT evidence of extravasation of intravascular contrast into the bowel lumen to suggest an active site of gastrointestinal hemorrhage. No acute intra-abdominal pathology. Atherosclerosis with patent vasculature. Postsurgical changes of antecolic Анна-en-Y gastric bypass without evidence of complication. Has been on NPO; IVF's; IV Protonix BID Hb Dropped to 8.3 this morning Appreciate GI input S/P EGD-No active bleeding area noted Continue BID PPI for 8 weeks IV Iron before discharge-0rdered Hb dropped to <8.0 Received 1 unit of blood and also IV Iron Hb 9.3 today-will discharge home CAD S/P STENT 2011 Stable, no chest pain Aspirin held for GIB Continue statin No acute Chest pain HYPERTENSION BP is stable Not on antihypertensive at home DM TYPE 2 Diet controlled A1c 5.3 in 07/2016 Novolog sliding scale coverage CHRONIC PAIN Continue chronic oxycodone and buprenorphine patch [place] drug database queried; no issues identified Continue Home medication ,will try to limit any Extra narcotics SLEEP APNEA Continue CPAP DVT PROPHYLAXIS SCD's due to GIB FULL CODE DISPOSITION Observation telemetry Follows with Dr. Villarreal for primary care Discharge home today Vital Signs: Date Time Temp Pulse Resp B/P (MAP) Pulse Ox O2 Delivery O2 Flow Rate FiO2 10/14/16 08:00 97 Room Air 10/14/16 07:39 36.5 43 18 121/72 (88) 97 Room Air 10/14/16 04:25 36.3 49 16 114/69 (84) 98 Room Air 10/14/16 04:00 Room Air 10/14/16 00:00 Room Air 10/13/16 23:47 36.5 47 18 111/60 (77) 96 Room Air 10/13/16 20:00 Room Air 10/13/16 19:52 36.6 54 18 115/69 (84) 97 Room Air 10/13/16 16:44 36.9 60 18 125/68 (87) 97 Room Air 10/13/16 16:40 Room Air 10/13/16 12:45 36.7 61 18 97/55 100 10/13/16 12:28 Room Air 10/13/16 12:15 35.7 59 18 105/53 96 10/13/16 11:45 36.7 56 18 102/62 96 10/13/16 11:30 36.9 54 18 109/53 97 10/13/16 11:09 37.1 67 18 111/57 99 10/13/16 10:53 36.6 67 20 132/54 (80) 100 Room Air Lab Results: Results Past 24 Hours Test 10/13/16 11:35 10/13/16 16:20 10/13/16 20:18 10/14/16 07:47 Range/Units Bedside Glucose 120 104 151 95 70-99 mg/dl Test 10/14/16 08:39 Range/Units White Blood Count 4.47 4.8-10.8 K/uL Red Blood Count 3.40 4.7-6.1 M/uL Hemoglobin 9.3 14.0-18.0 g/dL Hematocrit 29.8 42-52 % Mean Corpuscular Volume 87.6 80-100 fL Mean Corpuscular Hemoglobin 27.4 25-34 pg Mean Corpuscular Hemoglobin Concent 31.2 32-36 g/dl RDW Standard Deviation 49.0 36.4-46.3 fL RDW Coefficient of Variation 15.3 11.5-14.5 % Platelet Count 129 130-400 K/uL Mean Platelet Volume 9.7 7.4-10.4 fL
[2016-10-14 11:16] VITALS: BP 119/65; PULSE 49; TEMP 36.7; O2SAT 97
[2016-10-14 12:00] VITALS: O2SAT 97
--- NOTE | 2016-10-14 13:43 | Discharge Instructions ---
Discharge Instructions Date of Service Oct 14, 2016. Admission Reason for Admission: Gi Bleed Discharge Discharge Diagnosis / Problem: Upper GI Bleeding Discharge Goals Goal(s): Prevent Disease Progression Activity Recommendations Activity Limitations: resume your previous activity . Instructions / Follow-Up Instructions / Follow-Up Dr Villarreal on 10/17/16 at 1:00PM.Please keep appointment with GI Current Hospital Diet Patient's current hospital diet: Diabetes Type 2 Diet Discharge Diet Recommended Diet: Low Sodium Diet (2gm Na) Pending Studies Studies pending at discharge: no Medical Emergencies . Who to Call and When: Medical Emergencies: If at any time you feel your situation is an emergency, please call 911 immediately. . Non-Emergent Contact Non-Emergency issues call your: Primary Care Provider . Past History Medical & Surgical History: (1) GI bleed (2) DM type 2 (diabetes mellitus, type 2) (3) PUD (peptic ulcer disease) (4) S/P gastric bypass (5) H/O colostomy (6) H/O inguinal hernia repair (7) S/p EGD (8) s/p laparoscopic liver procedure (9) Sleep apnea (10) Lumbar strain . "Provider Documentation" section prepared by French Andrea. . VTE Core Measure Inpt VTE Proph given/why not?: SCD's
[2016-10-14 14:22] VITALS: BP 119/65; PULSE 49; TEMP 36.7; O2SAT 97
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
== END 2016-10-14 14:50 | disposition home or self-care (01) ==
LOC: C.EDB 15:38 → C.MED 18:45 → ENRESERV 19:04 → C.MED 10-13 01:29
PROVIDERS: ADMIT Hospitalist; ATTEND Internal Medicine
DX: K92.1 Melena (principal); K27.9 Peptic ulcer, site unspecified, unspecified as acute or chronic, without hemorrhage or perforation; K44.9 Diaphragmatic hernia without obstruction or gangrene; I25.10 Atherosclerotic heart disease of native coronary artery without angina pectoris; M19.90 Unspecified osteoarthritis, unspecified site; G47.30 Sleep apnea, unspecified; F17.200 Nicotine dependence, unspecified, uncomplicated; E11.9 Type 2 diabetes mellitus without complications; Z86.010 Personal history of colon polyps; Z79.82 Long term (current) use of aspirin; Z98.84 Bariatric surgery status; Z98.61 Coronary angioplasty status; Z83.3 Family history of diabetes mellitus; Z82.49 Family history of ischemic heart disease and other diseases of the circulatory system

== ENCOUNTER 2016-12-29 12:37 | Inpatient (IN) | payer OTHER ==
[~2016-12-29] VITALS: Ht 182.9 cm; Wt 106.1 kg
[~2016-12-29 12:37] MED LIST changes: -ALBU18002 INH; +BUPR10DI TOP; +CYAN100048 SQ; -CYM30 PO; +DULO-24 PO; +DULO60CA44 PO; +ERGO50002 PO; +FERR325T5 PO; -FLNIN/ NAE; +FLUT0.15 NAE; +NALO1SPR; +NTRGSL4; -OXYC-106 PO; +OXYC20TA32 PO; +POLY335019 PO; +PRVHFAIN INH; +TRAZ-120 PO; -TRAZ1TAB5 PO
[2016-12-29] MEDS ORDERED: SODIUM CHLORIDE 0.9% 1000ML 1,000 ML IV STA (12:59)
[2016-12-29] MEDS ORDERED: ONDANSETRON INJ 2 MG/ML 2 ML VIAL IV STA (12:59)
[2016-12-29] MEDS ORDERED: PANTOprazole INJ 40 MG in SYRINGE 0 ML IV ONE (13:00)
[2016-12-29 13:24] LABS: BASO % 0.4 %; BASO ABS # 0.04 K/uL (0-0.2); COMPLETE YES; EOS % 1.6 %; HEMATOCRIT 37.4 % (42-52); IG% 0.2 %; LYMPH % 15.8 %; LYMPH ABS # 1.49 K/uL (1.2-3.4); MEAN CORPUSCULAR HEMOGLOBIN 27.8 pg (25-34); MEAN CORPUSCULAR HGB CONC 32.4 g/dl (32-36); MEAN PLATELET VOLUME 9.4 fL (7.4-10.4); MONO % 6.9 %; NEUT % 75.1 %; PLATELET COUNT 285 K/uL (130-400); RED BLOOD COUNT 4.35 M/uL (4.7-6.1); WHITE BLOOD COUNT 9.43 K/uL (4.8-10.8)
[2016-12-29 13:28] LABS: ISTAT CREATININE 0.8 mg/dl (0.6-1.3); ISTAT HEMOGLOBIN 13.3 g/dl (14.0-18.0); ISTAT IONIZED CALCIUM 1.17 mmol/l (1.12-1.32)
[2016-12-29 13:33] LABS: PARTIAL THROMBOPLASTIN RATIO 1.1; PROTHROMBIN TIME (PATIENT) 10.6 SECONDS (9.0-12.0)
[2016-12-29 13:41] LABS: ALT/SGPT 29 U/L (12-78); AST/SGOT 19 U/L (15-37); BLOOD UREA NITROGEN 11 mg/dl (7-18); BUN/CREATININE RATIO 13.5 (10-20); CALCIUM 9.2 mg/dl (8.5-10.1); CARBON DIOXIDE 27 mmol/L (21-32); CHLORIDE 104 mmol/L (98-107); CREATININE 0.82 mg/dl (0.60-1.40); GLUCOSE 101 mg/dl (70-99); SODIUM 141 mmol/L (136-145)
[2016-12-29] MEDS: MoRPHine SULFATE 4 MG/ML 1 ML CARP\\VIAL IV PRN ×3 (13:45→16:38)
[2016-12-29] MEDS ORDERED: OPTIRAY 320 IV PRN (13:45)
[2016-12-29 13:46] LABS: ALKALINE PHOSPHATASE 120 U/L (45-117)
--- NOTE | 2016-12-29 14:02 | DIAGNOSTIC IMAGING REPORT ---
ABDOMEN AND PELVIS CT WITH IV CONTRAST CT DOSE: 1087.53 mGy.cm HISTORY: Acute generalized abdominal pain and nausea with black stool and diarrhea status post recent hernia repair. History of prior GI bleed. GIB, post op pain TECHNIQUE: Multiaxial CT images of the abdomen and pelvis were performed following the use of intravenous contrast. A dose lowering technique was utilized adhering to the principles of ALARA. COMPARISON STUDY: CT 10/11/2016. FINDINGS: The lung bases are generally clear. No pneumoperitoneum identified. Imaged inferior cardiac chambers are within normal limits. Coronary arterial calcifications noted. The liver, spleen, pancreas, gallbladder and adrenal glands are within normal limits. Bilateral low attenuating renal cortical lesions suggesting cysts. Evaluation of the solid abdominal organs however is limited secondary to be beam hardening artifact, likely secondary to positioning of the patient's arms. Largest lesion measures 2.1 cm and the left. Focal area of slightly decreased attenuation, 1.3 cm the left kidney, image 126 series 3 is indeterminate and may reflect a complex cyst. No renal calculi or hydronephrosis. Bladder is unremarkable. Prostate contains central coarse calcifications. Mild atherosclerotic plaquing of the abdominal aorta. No bulky adenopathy. Postoperative changes compatible with prior Анна-en-Y gastric bypass. There is no bowel obstruction. No focal bowel wall thickening. The appendix is not clearly seen. No secondary signs of acute appendicitis. Surgical clips are again seen over the right 2 lower anterior abdominal wall 1. Small fluid collection is noted superficial to the surgical clips, 3.1 x 1.4 cm. Moderate body wall edema anteriorly. There is a large peripherally enhancing low attenuating collection of the central and left paracentral lower anterior abdominal wall, 3.9 x 4.0 x 4.1 cm in AP, transverse and coronal caudal dimensions. No intra-abdominal fluid collections identified. There is atrophy of the rectus muscular atrophy. Multilevel endplate degenerative changes of the spine. IMPRESSION: 1. Postoperative changes of the lower anterior abdominal wall with a large peripherally enhancing fluid collection of the central and left paracentral deep subcutaneous tissues measuring up to 3.9 x 12.0 x 4.1 cm suggesting postoperative seroma. Abscess or liquefied hematoma are considered less likely differential considerations. Additional smaller 3.1 cm fluid collection is noted adjacent to surgical clips of the right lower anterior abdominal wall. 2. No acute intra-abdominal or intrapelvic abnormality identified. 3. Prior Анна-en-Y gastric bypass. No bowel obstruction. Electronically signed by: Sandro Nunez M.D. 12/29/2016 2:01 PM Dictated Date/Time: 12/29/2016 1:46 PM
--- NOTE | 2016-12-29 14:04 | DIAGNOSTIC IMAGING REPORT ---
CHEST ONE VIEW PORTABLE HISTORY: 61 years-old Male ABDOMINAL PAIN/GI acute generalized abdominal pain COMPARISON: Chest radiograph 10/09/2015 TECHNIQUE: Portable upright AP view of the chest FINDINGS: Cardiomediastinal and hilar silhouettes are within normal limits. There is no pneumothorax, pleural effusion, focal airspace consolidation or overt pulmonary edema. Bones of the chest are grossly intact. Postoperative or posttraumatic changes of the distal left clavicle redemonstrated. There is a suggested remote fracture deformity of the distal right clavicle. IMPRESSION: No acute cardiopulmonary process. The above report was generated using voice recognition software. It may contain grammatical, syntax or spelling errors. Electronically signed by: Sandro Nunez M.D. 12/29/2016 2:03 PM Dictated Date/Time: 12/29/2016 2:01 PM
--- NOTE | 2016-12-29 14:12 | EMERGENCY ROOM VISIT NOTE ---
History Report prepared by Shirin: Neha Puente Under the Supervision of: Dr. Fede Mixon D.O. First contact with patient: 12:53 Chief Complaint: GI ASSESSMENT Stated Complaint: POPPIXA,BLACK SICH IN BELLY,LIGHTHEADED History of Present Illness The patient is a 61 year old male who presents to the Emergency Room with complaints of an episode of black stool this morning. The patient had hernia surgery 2 weeks ago. He has had some abdominal pain since. This morning, he had some diarrhea which was black and watery. It was also malodorous. His abdomen has been feeling sore since the BM. Yesterday he was feeling cold and lightheaded. He feels nauseous. He denies any fever, chills, vomiting, chest pain, SOB, or groin pain. He had a gastric bypass 3 years ago. He lost 170 lbs since then. He no longer has diabetes. He also had an OK with 4 stents placed. He denies any history of C diff or diverticulitis. He has had bleeding ulcers in the past which presented with similar symptoms. Source of History: patient Onset: this morning Position: other (global) Quality: other (black stool) Timing: other (episodic) Associated Symptoms: + nausea, + abdominal pain, + diarrhea, No fevers, No chills, No chest pain, No SOB, No vomiting Note: Pt reports feeling cold, lightheaded. Pt denies groin pain. Review of Systems See HPI for pertinent positives & negatives. A total of 10 systems reviewed and were otherwise negative. Past Medical & Surgical Medical Problems: (1) Benign neoplasm of colon (2) CAD (coronary artery disease) (3) Dizziness (4) DM type 2 (diabetes mellitus, type 2) (5) Dyslipidemia (6) GI bleed (7) Gout (8) Osteoarthritis (9) PUD (peptic ulcer disease) (10) Sleep apnea Surgical Problems: (1) H/O colostomy (2) H/O eye surgery (3) H/O inguinal hernia repair (4) H/O shoulder surgery (5) H/O ventral hernia repair (6) S/P colonoscopy (7) S/P coronary artery stent placement (8) S/p EGD (9) S/P gastric bypass (10) s/p laparoscopic liver procedure Family History Cancer FATHER (lung, ?esophageal) Diabetes mellitus MOTHER BROTHER GRANDFATHER GRANDMOTHER Heart disease FATHER (OK in 60s) Hypertension Social History Smoking Status: Former Smoker Alcohol Use: none Drug Use: none Marital Status: Housing Status: lives with family Occupation Status: disabled Current/Historical Medications Scheduled Aspirin (Aspirin Ec), 81 MG PO QAM Atorvastatin (Lipitor), 80 MG PO QAM Baclofen (Baclofen), 10 MG PO TID Bupropion HCl (Bupropion HCl Xl), 300 MG PO QAM Cyanocobalamin (Vitamin B-12), 1,000 MCG SQ MONTHLY Duloxetine Hcl (Cymbalta), 20 MG PO DAILY Duloxetine Hcl (Cymbalta), 60 MG PO DAILY Ergocalciferol (Drisdol), 1 TAB PO WK Ferrous Sulfate (Ferrous Sulfate), 325 MG PO BID Fluticasone Propionate (Nasal) (Flonase Allergy Relief), 2 SPRAYS PEDRITO DAILY Naloxone HCl (Narcan), UD Nitroglycerin (Nitrostat), UD Oxycodone Hcl (Oxycodone Hcl), 10 MG PO Q4H Pantoprazole (Protonix), 40 MG PO BID Trazodone Hcl (Desyrel), 50 MG PO HS Scheduled PRN Albuterol (Ventolin Hfa), 2 PUFFS INH QID PRN for SOB/Wheezing Polyethylene Glycol 3350 (Miralax), 17 GM PO DAILY PRN for Constipation Allergies Coded Allergies: No Known Allergies (Unverified , 12/29/16) Physical Exam Vital Signs Date Time Temp Pulse Resp B/P (MAP) Pulse Ox O2 Delivery O2 Flow Rate FiO2 12/29/16 16:09 44 20 140/65 98 Room Air 12/29/16 14:40 99 Room Air 12/29/16 14:23 50 18 133/79 99 Room Air 12/29/16 13:18 49 12/29/16 12:40 37.1 63 20 133/76 96 Room Air Physical Exam GENERAL: Patient is awake, alert, mildly anxious, and appears to be uncomfortable. EYES: The conjunctivae are clear. The pupils are round and reactive. EARS, NOSE, MOUTH AND THROAT: The nose is without any evidence of any deformity. Mucous membranes are moist tongue is midline NECK: The neck is nontender and supple. RESPIRATORY: Normal respiratory effort is noted there is no evidence of wheezing rhonchi or rales CARDIOVASCULAR: Regular rate and rhythm noted there no murmurs rubs or gallops normal S1 normal S2 GASTROINTESTINAL: The abdomen is moderately distended and diffusely tender. Large lower abdominal surgical scar noted. There was tenderness along the right lateral aspect of the surgical scar. There was no erythema, drainage, or dehiscence noted. There was RLQ tenderness to palpation. Rectal exam revealed black stool, heme positive. BACK: No midline tenderness or or step-off noted range of motion in flexion extension as well as rotation no signs of muscle spasm noted MUSCULOSKELETAL/EXTREMITIES: There is no evidence of gross deformity full range of motion is noted in the hips and shoulders SKIN: There is pedal edema bilaterally. NEUROLOGIC: Patient is awake alert and oriented x3 Medical Decision & Procedures ER Provider Diagnostic Interpretation: X-ray results as stated below per interpretation by me and the radiologist. Radiology results as stated below per my review and radiologist interpretation: CHEST ONE VIEW PORTABLE HISTORY: 61 years-old Male ABDOMINAL PAIN/GI acute generalized abdominal pain COMPARISON: Chest radiograph 10/09/2015 TECHNIQUE: Portable upright AP view of the chest FINDINGS: Cardiomediastinal and hilar silhouettes are within normal limits. There is no pneumothorax, pleural effusion, focal airspace consolidation or overt pulmonary edema. Bones of the chest are grossly intact. Postoperative or posttraumatic changes of the distal left clavicle redemonstrated. There is a suggested remote fracture deformity of the distal right clavicle. IMPRESSION: No acute cardiopulmonary process. The above report was generated using voice recognition software. It may contain grammatical, syntax or spelling errors. Electronically signed by: Sandro Nunez M.D. 12/29/2016 2:03 PM Dictated Date/Time: 12/29/2016 2:01 PM ABDOMEN AND PELVIS CT WITH IV CONTRAST CT DOSE: 1087.53 mGy.cm HISTORY: Acute generalized abdominal pain and nausea with black stool and diarrhea status post recent hernia repair. History of prior GI bleed. GIB, post op pain TECHNIQUE: Multiaxial CT images of the abdomen and pelvis were performed following the use of intravenous contrast. A dose lowering technique was utilized adhering to the principles of ALARA. COMPARISON STUDY: CT 10/11/2016. FINDINGS: The lung bases are generally clear. No pneumoperitoneum identified. Imaged inferior cardiac chambers are within normal limits. Coronary arterial calcifications noted. The liver, spleen, pancreas, gallbladder and adrenal glands are within normal limits. Bilateral low attenuating renal cortical lesions suggesting cysts. Evaluation of the solid abdominal organs however is limited secondary to be beam hardening artifact, likely secondary to positioning of the patient's arms. Largest lesion measures 2.1 cm and the left. Focal area of slightly decreased attenuation, 1.3 cm the left kidney, image 126 series 3 is indeterminate and may reflect a complex cyst. No renal calculi or hydronephrosis. Bladder is unremarkable. Prostate contains central coarse calcifications. Mild atherosclerotic plaquing of the abdominal aorta. No bulky adenopathy. Postoperative changes compatible with prior Анна-en-Y gastric bypass. There is no bowel obstruction. No focal bowel wall thickening. The appendix is not clearly seen. No secondary signs of acute appendicitis. Surgical clips are again seen over the right 2 lower anterior abdominal wall 1. Small fluid collection is noted superficial to the surgical clips, 3.1 x 1.4 cm. Moderate body wall edema anteriorly. There is a large peripherally enhancing low attenuating collection of the central and left paracentral lower anterior abdominal wall, 3.9 x 4.0 x 4.1 cm in AP, transverse and coronal caudal dimensions. No intra-abdominal fluid collections identified. There is atrophy of the rectus muscular atrophy. Multilevel endplate degenerative changes of the spine. IMPRESSION: 1. Postoperative changes of the lower anterior abdominal wall with a large peripherally enhancing fluid collection of the central and left paracentral deep subcutaneous tissues measuring up to 3.9 x 12.0 x 4.1 cm suggesting postoperative seroma. Abscess or liquefied hematoma are considered less likely differential considerations. Additional smaller 3.1 cm fluid collection is noted adjacent to surgical clips of the right lower anterior abdominal wall. 2. No acute intra-abdominal or intrapelvic abnormality identified. 3. Prior Анна-en-Y gastric bypass. No bowel obstruction. Electronically signed by: Sandro Nunez M.D. 12/29/2016 2:01 PM Dictated Date/Time: 12/29/2016 1:46 PM Laboratory Results 12/29/16 12:15 Red Blood Count 4.35, Mean Corpuscular Volume 86.0, Mean Corpuscular Hemoglobin 27.8, Mean Corpuscular Hemoglobin Concent 32.4, Mean Platelet Volume 9.4, Neutrophils (%) (Auto) 75.1, Lymphocytes (%) (Auto) 15.8, Monocytes (%) (Auto) 6.9, Eosinophils (%) (Auto) 1.6, Basophils (%) (Auto) 0.4, Neutrophils # (Auto) 7.08, Lymphocytes # (Auto) 1.49, Monocytes # (Auto) 0.65, Eosinophils # (Auto) 0.15, Basophils # (Auto) 0.04 12/29/16 12:15 Test 12/29/16 12:15 12/29/16 13:08 12/29/16 14:20 White Blood Count 9.43 K/uL (4.8-10.8) Red Blood Count 4.35 M/uL (4.7-6.1) Hemoglobin 12.1 g/dL (14.0-18.0) Hematocrit 37.4 % (42-52) Mean Corpuscular Volume 86.0 fL (80-100) Mean Corpuscular Hemoglobin 27.8 pg (25-34) Mean Corpuscular Hemoglobin Concent 32.4 g/dl (32-36) Platelet Count 285 K/uL (130-400) Mean Platelet Volume 9.4 fL (7.4-10.4) Neutrophils (%) (Auto) 75.1 % Lymphocytes (%) (Auto) 15.8 % Monocytes (%) (Auto) 6.9 % Eosinophils (%) (Auto) 1.6 % Basophils (%) (Auto) 0.4 % Neutrophils # (Auto) 7.08 K/uL (1.4-6.5) Lymphocytes # (Auto) 1.49 K/uL (1.2-3.4) Monocytes # (Auto) 0.65 K/uL (0.11-0.59) Eosinophils # (Auto) 0.15 K/uL (0-0.5) Basophils # (Auto) 0.04 K/uL (0-0.2) RDW Standard Deviation 46.3 fL (36.4-46.3) RDW Coefficient of Variation 14.8 % (11.5-14.5) Immature Granulocyte % (Auto) 0.2 % Immature Granulocyte # (Auto) 0.02 K/uL (0.00-0.02) Prothrombin Time 10.6 SECONDS (9.0-12.0) Prothromb Time International Ratio 1.0 (0.9-1.1) Activated Partial Thromboplast Time 29.6 SECONDS (21.0-31.0) Partial Thromboplastin Ratio 1.1 Est Creatinine Clear Calc Drug Dose 116.2 ml/min Estimated GFR () 111.4 Estimated GFR (Non- 96.1 BUN/Creatinine Ratio 13.5 (10-20) Calcium Level 9.2 mg/dl (8.5-10.1) Total Bilirubin 0.4 mg/dl (0.2-1) Direct Bilirubin < 0.1 mg/dl (0-0.2) Aspartate Amino Transf (AST/SGOT) 19 U/L (15-37) Alanine Aminotransferase (ALT/SGPT) 29 U/L (12-78) Alkaline Phosphatase 120 U/L (45-117) Troponin I < 0.015 ng/ml (0-0.045) Total Protein 7.8 gm/dl (6.4-8.2) Albumin 3.3 gm/dl (3.4-5.0) Lipase 162 U/L (73-393) Bedside Hemoglobin 13.3 g/dl (14.0-18.0) Bedside Hematocrit 39 % (42-52) Bedside Sodium 140 mEq/L (135-144) Bedside Potassium 4.0 mEq/L (3.3-5.0) Bedside Chloride 101 mEq/L (101-112) Bedside Total CO2 26 mEq/l (24-31) Anion Gap 18.0 mmol/L (16-25) Bedside Blood Urea Nitrogen 11 mg/dl (7-18) Bedside Creatinine 0.8 mg/dl (0.6-1.3) Bedside Glucose (other) 100 mg/dl (70-99) Bedside Ionized Calcium (Juanita) 1.17 mmol/l (1.12-1.32) Urine Color YELLOW Urine Appearance CLEAR (CLEAR) Urine pH 6.0 (4.5-7.5) Urine Specific [place] 1.040 (1.000-1.030) Urine Protein NEG (NEG) Urine Glucose (UA) NEG (NEG) Urine Ketones NEG (NEG) Urine Occult Blood NEG (NEG) Urine Nitrite NEG (NEG) Urine Bilirubin NEG (NEG) Urine Urobilinogen NEG (NEG) Urine Leukocyte Esterase NEG (NEG) Laboratory results per my review. Medications Administered Medications (Trade) Dose Ordered Sig/Annabelle Route Start Time Stop Time Status Last Admin Dose Admin Sodium Chloride 1,000 ml @ 999 mls/hr Q1H1M STAT IV 12/29/16 12:59 12/29/16 13:59 DC 12/29/16 13:46 999 MLS/HR Ondansetron HCl (Zofran Inj) 4 mg NOW STAT IV 12/29/16 12:59 12/29/16 13:02 DC 12/29/16 13:45 4 MG Morphine Sulfate (MoRPHine SULFATE INJ) 4 mg Q15M PRN IV 12/29/16 13:00 01/12/17 12:59 12/29/16 14:40 4 MG Pantoprazole Sodium 40 mg/ Syringe 10 ml @ 5 mls/min NOW ONCE IV 12/29/16 13:00 12/29/16 13:02 DC 12/29/16 13:46 5 MLS/MIN ECG Indication: bradycardia Rate (beats per minute): 47 Rhythm: sinus bradycardia Findings: no ectopy, other (no acute ST segment abnormality) Comparison ECG Date: 11-Oct-2016 Change: no significant change ED Course 1253: The patient was evaluated in room C12B. A complete history and physical examination were performed. 1259: Zofran Inj 4 mg IV, NSS 1000 ml @ 999 mls/hr IV. 1300: Pantoprazole Sodium 40 mg/Syringe 10 ml @ 5 mls/min IV, Morphine Sulfate 4 mg IV. 1414: Upon reevaluation, the patient is stable. I discussed results and treatment plan with him. He verbalizes agreement and understanding. The patient will be evaluated for further management and care. 1427: I discussed the patient's case with Dr. Valentino, [facility]ist. The patient will be evaluated for further management. Medical Decision Prior records/ancillary studies reviewed. Triage Nursing notes reviewed. Additional history obtained from the SO. The patient's history was concerning for possible gastrointestinal bleeding. Differential diagnosis: Etiologies such as diverticulosis, AVM, coagulopathy, colitis, inflammatory bowel disease, malignancy, Lizette-Nelson tear, esophagitis, peptic ulcer disease , variceal bleed, gastritis, epistaxis, fissure, hemorrhoids, as well as others were entertained. The patient is a 61-year-old male who presented to the emergency department for an evaluation of epigastric abdominal pain as well as dark stool. The patient recently had surgery for removal of excess skin on his abdomen. He has a history of significant weight loss after a gastric bypass. The patient had some abdominal tenderness but no definite signs of infection. There is no erythema or drainage noted. The patient's white blood cell count was normal. On CAT scan there did appear to be signs of a fluid collection which is likely a seroma. I discussed the patient's laboratory and radiographic studies with him. Because of his signs of GI bleeding which he has a history of I discussed his case with the on-call [facility] hospitalist. They've agreed to evaluate the patient in the emergency apartment for further management and disposition. Medication Reconcilliation Current Medication List: was personally reviewed by me Blood Pressure Screening Patient's blood pressure: Elevated blood pressure Blood pressure disposition: Elevated BP felt to be situational Consults Time Called: 1416 Consulting Physician: Dr. Valentino, [facility] Returned Call: 1424 I discussed the patient's case with him. The patient will be evaluated for further management. Impression Primary Impression: Abdominal pain Additional Impressions: Upper GI bleeding Postoperative pain Postoperative seroma Scribe Attestation The scribe's documentation has been prepared under my direction and personally reviewed by me in its entirety. I confirm that the note above accurately reflects all work, treatment, procedures, and medical decision making performed by me. Departure Information Dispostion Being Evaluated By Hospitalist Jean Rosen M.D. (PCP) Patient Instructions My [facility] Problem Qualifiers Primary Impression: Abdominal pain Abdominal location: generalized Qualified Codes: R10.84 - Generalized abdominal pain Additional Impressions: Postoperative seroma Surgical complication system/body Area: subcutaneous tissue Procedure type: dermatologic Qualified Codes: L76.33 - Postprocedural seroma of skin and subcutaneous tissue following a dermatologic procedure
[2016-12-29 14:40] VITALS: O2SAT 99; Ht 182.9 cm; Wt 106.1 kg
[2016-12-29] MEDS ORDERED: ACETAMINOPHEN 325 MG TAB PO PRN (15:00)
[2016-12-29] MEDS ORDERED: ALUMINUM/MAGNESIUM/SIMETH (MAALOX MAX) 30 ML UDC PO PRN (15:00)
[2016-12-29 15:13] LABS: URINE APPEARANCE CLEAR (CLEAR); URINE BILIRUBIN NEG (NEG); URINE COLOR YELLOW; URINE NITRITE NEG (NEG); UROBILINOGEN NEG (NEG)
[2016-12-29 15:18] LABS: MANUAL MICROSCOPIC REQUIRED? NO; REVIEW REQ? NO
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
[2016-12-29] MEDS ORDERED: INFLUENZA VIRUS QUAD VACCINE 0.5 ML SYR IM. ONE (16:45)
[2016-12-29] MEDS ORDERED: INFLUENZA ADMINISTRATION CHARGE ONE (16:45)
[2016-12-29] MEDS: SODIUM CHLORIDE 0.9% 1000ML 1,000 ML IV SCH (17:25)
[2016-12-29] MEDS: OXYCODONE HCL IR 5 MG TAB (IMMEDIATE RELEASE) PO SCH ×2 (18:03→21:48)
[2016-12-29 18:42] LABS: HEMATOCRIT 34.9 % (42-52)
[2016-12-29 19:52] VITALS: BP 129/63; PULSE 86; TEMP 36.9; O2SAT 95
[2016-12-29 20:00] VITALS: O2SAT 95
[2016-12-29] MEDS: BACLOFEN 10 MG TAB PO SCH (21:47)
[2016-12-29] MEDS: PANTOprazole SOD 40 MG TAB PO SCH (21:47)
[2016-12-29] MEDS: TRAZODONE HCL 50 MG TAB PO SCH (21:48)
[2016-12-29] MEDS: FERROUS SULFATE 325 MG TAB PO SCH (21:48)
[2016-12-29 23:59] VITALS: O2SAT 95
[2016-12-30] VITALS (8 sets, daily range): BP systolic 101–124; BP diastolic 60–68; PULSE 46–57; TEMP 36.6–37.3; O2SAT 95–98
[2016-12-30] MEDS: OXYCODONE HCL IR 5 MG TAB (IMMEDIATE RELEASE) PO SCH ×6 (01:50→21:46)
[2016-12-30] MEDS: SODIUM CHLORIDE 0.9% 1000ML 1,000 ML IV SCH ×2 (04:50→15:52)
[2016-12-30 06:08] LABS: MEAN CELL VOLUME 86.8 fL (80-100); MEAN CORPUSCULAR HEMOGLOBIN 27.5 pg (25-34); MEAN CORPUSCULAR HGB CONC 31.6 g/dl (32-36); MEAN PLATELET VOLUME 9.2 fL (7.4-10.4); PLATELET COUNT 238 K/uL (130-400); RED BLOOD COUNT 3.57 M/uL (4.7-6.1); WHITE BLOOD COUNT 7.28 K/uL (4.8-10.8)
[2016-12-30 06:49] LABS: BUN/CREATININE RATIO 13.4 (10-20); CREATININE 0.96 mg/dl (0.60-1.40); POTASSIUM 3.4 mmol/L (3.5-5.1)
[2016-12-30] MEDS: DULOXETINE HCL 60 MG CAP PO SCH (08:33)
[2016-12-30] MEDS: DULOXETINE HCL 20 MG CAP PO SCH (08:33)
[2016-12-30] MEDS: FERROUS SULFATE 325 MG TAB PO SCH ×2 (08:33→21:46)
[2016-12-30] MEDS: ATORVASTATIN 40 MG TAB PO SCH (08:34)
[2016-12-30] MEDS: BuPROPion XL 300 MG TABCR PO SCH (08:34)
[2016-12-30] MEDS: BACLOFEN 10 MG TAB PO SCH ×3 (08:34→21:46)
[2016-12-30] MEDS: PANTOprazole SOD 40 MG TAB PO SCH (08:34)
[2016-12-30] MEDS ORDERED: ASPIRIN 81 MG ECTAB PO SCH (09:00)
[2016-12-30] MEDS ORDERED: PANTOprazole INJ 80 MG in DEXTROSE 5% 100ML IV ONE (09:15)
[2016-12-30] MEDS: PANTOprazole INJ 40 MG in DEXTROSE 5% 100ML IV SCH ×4 (09:26→23:08)
--- NOTE | 2016-12-30 09:26 | ECHOCARDIOGRAM REPORT ---
*NOTICE TO RECEIVING REPUBLICAN AGENCY This information is strictly Confidential and protected under [place] law. [place] law prohibits you from making any further disclosure of this information unless further disclosure is expressly permitted by the written consent of the person to whom it pertains or is authorized by law. A general authorization for the release of medical or other information is not sufficient for this purpose. Hospital accepts no responsibility if the information is made available to any other person, INCLUDING THE PATIENT. Interpretation Summary * Name: ADOLFO MCKNIGHT Study Date: 12/30/2016 06:36 AM BP: 107/66 mmHg * Patient Location: C.2E\S\E205\S\1 HR: 52 * : 1955 (M/d/yyyy) Gender: Male Height: 72 in * Age: 61 yrs Ethnicity: CA Weight: 215 lb * Ordering Physician: Thang Valentino * Referring Physician: Self, Referred * Performed By: Epi Moreno [facility] * * Reason For Study: Syncope * BSA: 2.2 m2 * -- Conclusions -- * Normal LV chamber size with borderline concentric LVH. * Normal LV systolic function, EF 55-60%. * No segmental left ventricular wall motion abnormalities are noted. * Grade II diastolic dysfunction. * No significant valvular pathology. Procedure Details * A complete two-dimensional transthoracic echocardiogram was performed (2D, M-mode, Doppler and color flow Doppler). Left Ventricle * The left ventricle is normal in size. * There is borderline concentric left ventricular hypertrophy. * Ejection Fraction = 55-60%. * Left ventricular systolic function is normal. * No segmental left ventricular wall motion abnormalities are noted. * The left ventricular wall motion is normal. Right Ventricle * The right ventricular cavity size is normal (basal dimension <4.2 cm in right ventricular apical 4-chamber view). * The right ventricular systolic function is normal as assessed by tricuspid annular plane systolic excursion (TAPSE) (normal >1.5 cm). Atria * The left atrium is mildly dilated. * Right atrial size is normal. * No ASD detected; PFO is not assessed. Mitral Valve * The mitral valve is normal in structure and function. Tricuspid Valve * The tricuspid valve is normal in structure and function. Aortic Valve * The aortic valve is not well visualized. * No hemodynamically significant valvular aortic stenosis. * There is no significant aortic regurgitation. Pulmonic Valve * The pulmonary valve is not well seen, but the Doppler examination is normal without significant regurgitation or stenosis. Great Vessels * The aortic root and proximal ascending aorta are normal sized. Pericardium/Pleural * There is no pericardial effusion. Left Ventricular Diastolic Function * Diastolic dysfunction, Grade II (pseudonormalization pattern). MMode 2D Measurements and Calculations IVSd 1.0 cm IVSs 1.3 cm LVIDd 5.3 cm LVIDs 3.5 cm LVPWd 1.0 cm LVPWs 1.3 cm IVS/LVPW 10 FS 33.9 % EDV(Teich) 133.4 ml ESV(Teich) 50.2 ml EF(Teich) 62.3 % EDV(cubed) 146.1 ml ESV(cubed) 42.2 ml EF(cubed) 71.1 % % IVS thick 29.5 % % LVPW thick 29.6 % LV mass(C)d 206.5 grams LV mass(C)dI 94.0 grams/m\S\2 LV mass(C)s 159.3 grams LV mass(C)sI 72.5 grams/m\S\2 SV(Teich) 83.2 ml SI(Teich) 37.9 ml/m\S\2 SV(cubed) 103.9 ml SI(cubed) 47.3 ml/m\S\2 Ao root diam 3.8 cm Ao root area 11.3 cm\S\2 ACS 1.9 cm LA dimension 3.8 cm asc Aorta Diam 3.0 cm LA/Ao 1.0 EDV(MOD-sp4) 133.0 ml ESV(MOD-sp4) 60.0 ml EF(MOD-sp4) 54.9 % EDV(MOD-sp2) 151.0 ml ESV(MOD-sp2) 67.0 ml EF(MOD-sp2) 55.6 % SV(MOD-sp4) 73.0 ml SI(MOD-sp4) 33.2 ml/m\S\2 SV(MOD-sp2) 84.0 ml SI(MOD-sp2) 38.2 ml/m\S\2 Doppler Measurements and Calculations MV E max mariel 67.6 cm/sec MV A max mariel 59.2 cm/sec MV E/A 1.1 MV P1/2t max mariel 82.3 cm/sec MV P1/2t 106.4 msec MVA(P1/2t) 2.1 cm\S\2 MV dec slope 226.6 cm/sec\S\2 MV dec time 0.33 sec Ao V2 max 150.1 cm/sec Ao max PG 9.0 mmHg Ao max PG (full) 3.6 mmHg LV V1 max PG 5.4 mmHg LV V1 max 116.5 cm/sec PA V2 max 115.6 cm/sec PA max PG 5.4 mmHg TR max mariel 212.5 cm/sec
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
[2016-12-30] MEDS: TRAZODONE HCL 50 MG TAB PO SCH (21:46)
[2016-12-31] VITALS (7 sets, daily range): BP systolic 97–143; BP diastolic 55–82; PULSE 46–63; TEMP 36.3–37.2; O2SAT 97–99
[2016-12-31] MEDS: OXYCODONE HCL IR 5 MG TAB (IMMEDIATE RELEASE) PO SCH ×6 (02:10→21:03)
[2016-12-31] MEDS: PANTOprazole INJ 40 MG in DEXTROSE 5% 100ML IV SCH ×4 (04:35→21:02)
[2016-12-31] MEDS: SODIUM CHLORIDE 0.9% 1000ML 1,000 ML IV SCH ×2 (04:35→16:45)
[2016-12-31 05:57] LABS: HEMATOCRIT 31.7 % (42-52); MEAN CELL VOLUME 86.8 fL (80-100); MEAN CORPUSCULAR HEMOGLOBIN 27.4 pg (25-34); MEAN CORPUSCULAR HGB CONC 31.5 g/dl (32-36); MEAN PLATELET VOLUME 8.9 fL (7.4-10.4); PLATELET COUNT 211 K/uL (130-400); RED BLOOD COUNT 3.65 M/uL (4.7-6.1); WHITE BLOOD COUNT 7.65 K/uL (4.8-10.8)
[2016-12-31 06:36] LABS: CALCIUM 8.2 mg/dl (8.5-10.1); CREATININE 0.72 mg/dl (0.60-1.40); POTASSIUM 4.2 mmol/L (3.5-5.1)
[2016-12-31] MEDS ORDERED: LIDOCAINE HCL 2% 2 ML VIAL (20MG/ML) ONE (10:04)
[2016-12-31] MEDS ORDERED: PROPOFOL IV EMULSION 10 MG/ML 20 ML VIAL IV ONE (10:04)
[2016-12-31] MEDS ORDERED: ONDANSETRON INJ 2 MG/ML 2 ML VIAL ONE (10:04)
[2016-12-31] MEDS ORDERED: MIDAZOLAM HCL 1 MG/ML 2ML VIAL ONE (10:04)
--- NOTE | 2016-12-31 10:07 | Progress Note ---
Progress Note Date of Service Dec 31, 2016. Progress Note Pt here her for endoscopy for melena and dark stool. Patient alert and stable with benign abdominal exam. Stable for EGD.
--- NOTE | 2016-12-31 10:31 | GI REPORT ---
Procedure Date: 12/31/2016 10:07 AM Procedure: Upper GI endoscopy Indications: Melena Medicines: See the Anesthesia note for documentation of the administered medications Complications: No immediate complications. Estimated Blood Loss: Estimated blood loss: none. Procedure: Pre-Anesthesia Assessment: - Prior to the procedure, a History and Physical was performed, and patient medications, allergies and sensitivities were reviewed. The patient's tolerance of previous anesthesia was reviewed. - The risks and benefits of the procedure and the sedation options and risks were discussed with the patient. All questions were answered and informed consent was obtained. - Patient identification and proposed procedure were verified prior to the procedure by the physician and the nurse. The procedure was verified in the pre-procedure area. - Pre-procedure physical examination revealed no contraindications to sedation. - After reviewing the risks and benefits, the patient was deemed in satisfactory condition to undergo the procedure. After obtaining informed consent, the endoscope was passed under direct vision. Throughout the procedure, the patient's blood pressure, pulse, and oxygen saturations were monitored continuously. The scope was introduced through the mouth, and advanced to the afferent and efferent jejunal loops. The upper GI endoscopy was accomplished without difficulty. The patient tolerated the procedure well. Findings: The esophagus was normal. Evidence of a gastric bypass was found. A gastric pouch with a normal size was found. The staple line appeared intact. The gastrojejunal anastomosis was characterized by healthy appearing mucosa. The jejunojejunal anastomosis was characterized by healthy appearing mucosa. The examined jejunum was normal. Impression: - Normal esophagus. - Gastric bypass with a normal-sized pouch and intact staple line. Gastrojejunal anastomosis characterized by healthy appearing mucosa. - Normal examined jejunum. - No ulcers seen. - No specimens collected. Recommendation: - [facility] for [facility] care. Cameron Junior M.D. Cameron Junior MD 12/31/2016 10:30:36 AM This report has been signed electronically. Note Initiated On: 12/31/2016 10:07 AM I attest to the content of the Intraoperative Record and orders documented therein, exceptions below
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
--- NOTE | 2016-12-31 10:44 | Anesthesiology Progress Note ---
Anesthesia Post Op Note Date & Time Dec 31, 2016 at 10:43 Vital Signs Pain Intensity: 8 Vital Signs Past 12 Hours Date Time Temp Pulse Resp B/P (MAP) Pulse Ox O2 Delivery O2 Flow Rate FiO2 12/31/16 10:39 48 20 112/61 (78) 97 Room Air 12/31/16 10:23 44 20 113/61 (78) 97 Room Air 12/31/16 09:58 37.0 46 20 117/55 (75) 99 Room Air 12/31/16 09:37 36.8 46 17 112/55 97 Room Air 12/31/16 08:00 Room Air 12/31/16 07:41 36.8 46 17 112/55 (74) 97 Room Air 12/31/16 04:16 Room Air 12/31/16 04:10 37.0 63 17 110/65 (80) 98 Room Air 12/31/16 00:33 37.0 52 17 109/57 (74) 97 Room Air 12/30/16 23:59 Room Air Notes Mental Status: alert / awake / arousable, participated in evaluation Pt Amnestic to Procedure: Yes Nausea / Vomiting: adequately controlled Pain: adequately controlled Airway Patency, RR, SpO2: stable & adequate BP & HR: stable & adequate Hydration State: stable & adequate Anesthetic Complications: no major complications apparent
[2016-12-31] MEDS: DULOXETINE HCL 60 MG CAP PO SCH (11:20)
[2016-12-31] MEDS: DULOXETINE HCL 20 MG CAP PO SCH (11:20)
[2016-12-31] MEDS: ATORVASTATIN 40 MG TAB PO SCH (11:20)
[2016-12-31] MEDS: FERROUS SULFATE 325 MG TAB PO SCH ×2 (11:21→21:02)
[2016-12-31] MEDS: BACLOFEN 10 MG TAB PO SCH ×3 (11:21→21:02)
[2016-12-31] MEDS: BuPROPion XL 300 MG TABCR PO SCH (11:22)
[2016-12-31] MEDS: TRAZODONE HCL 50 MG TAB PO SCH (21:02)
[2017-01-01] VITALS: BP 106/61; PULSE 45; TEMP 36.5; O2SAT 97
[2017-01-01] MEDS: OXYCODONE HCL IR 5 MG TAB (IMMEDIATE RELEASE) PO SCH ×4 (01:49→13:48)
[2017-01-01] MEDS: PANTOprazole INJ 40 MG in DEXTROSE 5% 100ML IV SCH ×2 (01:50→06:06)
[2017-01-01 04:00] VITALS: O2SAT 98
[2017-01-01 04:39] VITALS: BP 124/65; PULSE 47; TEMP 36.8; O2SAT 98
[2017-01-01] MEDS: SODIUM CHLORIDE 0.9% 1000ML 1,000 ML IV SCH (04:51)
[2017-01-01 06:53] LABS: MEAN CORPUSCULAR HEMOGLOBIN 27.4 pg (25-34); MEAN CORPUSCULAR HGB CONC 31.9 g/dl (32-36); MEAN PLATELET VOLUME 9.3 fL (7.4-10.4); PLATELET COUNT 215 K/uL (130-400); RED BLOOD COUNT 3.72 M/uL (4.7-6.1); WHITE BLOOD COUNT 6.54 K/uL (4.8-10.8)
[2017-01-01 07:27] LABS: BUN/CREATININE RATIO 12.6 (10-20); CALCIUM 8.6 mg/dl (8.5-10.1); CREATININE 0.74 mg/dl (0.60-1.40); POTASSIUM 3.8 mmol/L (3.5-5.1)
[2017-01-01 07:36] VITALS: BP 106/55; PULSE 54; TEMP 36.1; O2SAT 97
[2017-01-01] MEDS: BuPROPion XL 300 MG TABCR PO SCH (07:42)
[2017-01-01] MEDS: ATORVASTATIN 40 MG TAB PO SCH (07:43)
[2017-01-01] MEDS: DULOXETINE HCL 20 MG CAP PO SCH (07:43)
[2017-01-01] MEDS: BACLOFEN 10 MG TAB PO SCH ×2 (07:43→13:48)
[2017-01-01] MEDS: DULOXETINE HCL 60 MG CAP PO SCH (07:44)
[2017-01-01] MEDS: FERROUS SULFATE 325 MG TAB PO SCH (07:44)
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
[2017-01-01 11:53] VITALS: BP 119/54; PULSE 64; TEMP 36.4; O2SAT 97
[2017-01-01] MEDS ORDERED: OXYC20TA32 PO (13:22)
--- NOTE | 2017-01-01 13:24 | Discharge Instructions ---
Discharge Instructions Date of Service Jan 01, 2017. Admission Reason for Admission: Dizziness; Gi Bleed Discharge Discharge Diagnosis / Problem: UGIB; resolved Discharge Goals Goal(s): Decrease discomfort, Improve function, Diagnostic testing, Therapeutic intervention Activity Recommendations Activity Limitations: resume your previous activity . Instructions / Follow-Up Instructions / Follow-Up Please follow-up with Dr. Avelar (covering for Dr. Villarreal) on January 06 at 10:45AM Current Hospital Diet Patient's current hospital diet: AHA Diet (Heart Healthy) Discharge Diet Recommended Diet: AHA Diet (Heart Healthy) Procedures Procedures Performed: EGD Pending Studies Studies pending at discharge: no Medical Emergencies . Who to Call and When: Medical Emergencies: If at any time you feel your situation is an emergency, please call 911 immediately. . Non-Emergent Contact Non-Emergency issues call your: Primary Care Provider . . "Provider Documentation" section prepared by Thang Valentino. . VTE Core Measure Inpt VTE Proph given/why not?: SCD's [place] Drug Monitoring Program Search Results: patient reviewed within database, no issues identified
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
[2017-01-01 13:28] VITALS: BP 119/54; PULSE 64; TEMP 36.4; O2SAT 97
== END 2017-01-01 14:00 | disposition home or self-care (01) | DRG 378 ==
LOC: C.EDB 12:39 → C.2E 15:00 → ENRESERV 15:18
PROVIDERS: ADMIT Family Medicine; ATTEND Family Medicine
PROC: 0DJ08ZZ Inspection of Upper Intestinal Tract, Via Natural or Artificial Opening Endoscopic (ICD-10-PCS; principal; 2016-12-31 09:55)
DX: K92.1 Melena (principal); D62 Acute posthemorrhagic anemia; L76.34 Postprocedural seroma of skin and subcutaneous tissue following other procedure; R19.7 Diarrhea, unspecified; I25.10 Atherosclerotic heart disease of native coronary artery without angina pectoris; E11.9 Type 2 diabetes mellitus without complications; E78.5 Hyperlipidemia, unspecified; M10.9 Gout, unspecified; R00.1 Bradycardia, unspecified; F32.9 Major depressive disorder, single episode, unspecified; F41.9 Anxiety disorder, unspecified; G89.21 Chronic pain due to trauma; Z79.82 Long term (current) use of aspirin; Z79.899 Other long term (current) drug therapy; Z98.84 Bariatric surgery status; Z98.890 Other specified postprocedural states; Z95.5 Presence of coronary angioplasty implant and graft; Z87.891 Personal history of nicotine dependence

== ENCOUNTER → 2017-04-30 | Outpatient (CLI) | payer OTHER ==
[~2017-04-30] MED LIST changes: +ACET-1693 PO; +ASPCH81X PO; -BUPR10DI TOP; +BUPR1SUB23 SL; +CYNI1000 IM; -NTRGSL4; +NTRGSL4 UT
--- NOTE | 2017-05-01 06:17 | PAP/PSG TECHNICIAN REPORT ---
[facility] Cvicu Rn Polysomnogram Report Study name: None Report date: 05/01/2017 Study date: 04/30/2017 Referring Physician: Melissa Navas Name: ADOLFO RYAN Interpreting Physician: Paulo Navarrete M.D. Date of : 1955 Cvicu Rn: [facility]. Sex: Male Age: 61 Study Type: PSG Weight: 229 lbs Height: 61 years, Height 6' 0" BMI: 31.05 Medications: DULOXETINE 20 MG, PANTOPRAZOLE 40 MG, OXYCODONE 5 MG, CHANTIX, BACLOFEN 10 MG, MIRALAX, FERROUS SULFATE 325 MG, TRAZODONE 50 MG, VIT B-12, BUPROPION 300 MG, VENTOLIN HFA, NITROSTAT 0.4 MG, ATORVASTATIN 80 MG, FLONASE, ASPIRIN 81 MG, DRISDOL [id number] UNIT Patient History 61 yr-old male here for a baseline/split study. He is currently on CPAP at home. He has had gastric bypass surgery and is back to assess his DOYLE and pressure settings. His [place] scale is 10. The test was started on room air. ETCO2 testing was not utilized during this study. Room 1 Parameters Monitored NPSG: E1-M2, E2-M1, Fp1-M2, Fp2-M1, F3-M2, F4-M2, F4-M1, C3-M2, C4-M2, C4-M1, O1-M2, O2-M2, O2-M1, T3-M2, T4-M1, P3-M2, P4-M1, CHIN1, CHIN2, HR, EKG, Legs, PFLOW, SNOR, FLOW, CFLOW, Tidal Volume, THOR, ABDO, SpO2, PLTH, CPRESS, ETCO2 Wave, ETCO2, pH Sleep Architecture Sleep Stages Time at Lights Off 10:03:36 PM STAGES Time (min.) TST (%) Time at Lights On 5:31:36 AM Wake 126.5 -- Total Recording Time (TRT) 448.00 min. N1 33.0 10 Total Sleep Period (TSP) 433.0 min. N2 203.0 63 Total Sleep Time (TST) 321.5min. N3 39.5 12 Awake Time 126.5 min. REM 46.0 14 Wake after Sleep Onset 111.5 min. Sleep Efficiency (SE) 72 % Sleep Onset Latency (MAMTA) 15.0 min. Number of Stage 1 Shifts None Awakenings 21 Stage Changes 112 Number of REM periods 6 REM 46.0 14 REM Latency 233.0 min. NREM 275.5 86 Body Position Analysis Supine Right Left Side Prone Vertical Total Sleep Time (min.) 426.6 0.0 0.0 0.00 0.0 0.4 Total Sleep Time (%) 100% 0% 0% 0 0% N/A% Total Sleep Time REM (min.) 46.0 0.0 0.0 None 0.0 0.0 Total Sleep Time NREM (min.) 275.5 0.0 0.0 None 0.0 0.0 Intermittent Wake (min.) 105.1 0.0 20.9 None 0.0 0.4 Total Sleep Period (%) 95% None None None None None Arousals Myoclonus (PLM) * Events Count Index Events Count Index Spontaneous 36 7 Events Awake (PLMW) 118 56.0 Respiratory 46 9.1 Events Asleep w/ Arousal (PLMA) 12 2.2 PLM 12 2 Events Asleep w/o Arousal (PLMS) 155 28.9 Snoring 7 1 Total Asleep 167 31.2 Total 101 19 Total 285 38 Respiratory Analysis * CA OA MA CH H RERA Total Count 3 54 6 0 19 9 82 Index 0.6 10.1 1.1 0 3.5 2 17.0 Mean Duration 21.2 27.3 33.7 0.00 30.5 16.6 27.1 Longest Duration 28.6 54.9 37.8 0.00 37.8 19.3 54.9 Respiratory Event Summary Total Supine ~Supine Right Left Prone REM NREM Apneas Count 63 63 N/A N/A N/A N/A 50 13 Index 11.8 12 N/A N/A N/A N/A 65 3 Hypopneas (4% Desat) Count 19 19 N/A N/A N/A N/A 3 16 Index 3.5 3.5 N/A N/A N/A N/A 3.9 3.5 Apneas & All Hypopneas Count 82 82 N/A N/A N/A N/A 53 29 Index 15.3 15 N/A N/A N/A N/A 69.1 6.3 Respiratory Events (Bilingual Account Manager+All Hyp+RERA) Count 82 91 N/A N/A N/A N/A 53 29 Index 17.0 17 N/A N/A N/A N/A 70.4 8.1 Respiratory Related Arousal Count 46 91 N/A N/A N/A N/A 27 22 Index 9.1 9 N/A N/A N/A N/A 35 5 Snoring Analysis Supine Right Left Prone REM NREM Total Snore duration 4.4 min Snores count 124 N/A N/A N/A 34 90 124 Snore mean duration 2.1 Sec Snores index 23 N/A N/A N/A 44.3 19.6 23.1 TST with snoring (%) 1.4% Desaturation Event Summary: Minimum %SpO2 Event Count Mean/Min/Max Duration(sec.) Desaturation Index % Time In Bed > 90 71 33.5 / 12.8 / 60.0 9.9 97.7 86 - 90 0 N/A 0.0 2.2 81 - 85 1 13.0 / 13.0 / 13.0 240.0 0.1 76 - 80 0 N/A 0.0 0.0 71 - 75 0 N/A 0.0 0.0 66 - 70 0 N/A 0.0 0.0 61 - 65 0 N/A 0.0 0.0 56 - 60 0 N/A 0.0 0.0 51 - 55 0 N/A 0.0 0.0 < 50 0 N/A 0.0 0.0 Total REM NREM Awake <50% 0.0 min. 0.0 min. 0.0 min. 0.0 min. 51 - 60% 0.0 min. 0.0 min. 0.0 min. 0.0 min. 61 - 70% 0.0 min. 0.0 min. 0.0 min. 0.0 min. 71 - 80% 0.1 min. 0.0 min. 0.0 min. 0.1 min. 81 - 90% 10.1 min. 4.9 min. 4.2 min. 1.0 min. 91 - 100% 428.5 min. 41.1 min. 271.3 min. 116.1 min. Average 94 94 94 94 Minimum SpO2 79 86 87 79 Desaturation Event Index 9.6 53.5 6.1 1.4 # Desat. Events below 89% 11 6 3 2 Time(%) with Saturation below 89% 0.5 0.3 0.1 0.2 Time(min.) with Saturation below 89% 2.4 1.1 0.5 0.7 Time (mins) REM (mins) NREM (mins) % of TST SpO2 Below 90% 35 19 N16 1.3 SpO2 Below 88% 6 0 0 0 Heart Rate Analysis Min (bpm) Max (bpm) Average (bpm) Awake 43 237 50 NREM 41 71 49 REM 41 61 50 Overall 41 71 49 Supplemental O2 Values Minimum O2 level: None Value Start Time End Time Cvicu Rn Comments Mr. Ryan slept only in the supine position. No cardiac arrhythmias or PLMs noted. No bruxism noted. Snoring was noted and scored as a 2 on a scale of 1 through 5. (0=no snoring, 5=snoring loud enough to be heard through a closed door or down the garcia way) He did not meet specific Split-Night criteria during the diagnostic portion of this study in enough time to start CPAP. He awoke to use the restroom two times during the night. Mr. Ryan stated that he slept about the same as usual. The final report will be interpreted and signed by a sleep physician. The completed physician report will then be placed in the patient medical record. Therapy (cm H2O) 0 TIB (min.) 448.0 TST (min.) 321.5 Sleep Onset (min.) 15.0 REM Onset From Sleep (min.) 233.0 Sleep Efficiency % 72 Wakefulness (%) 28 Wakefulness (min.) 126.5 NREM 1 (%) 10 NREM 1 (min.) 33.0 NREM 2 (%) 63 NREM 2 (min.) 203.0 NREM 3 (%) 12 NREM 3 (min.) 39.5 REM (%) 14 REM (min.) 46.0 # Arousals 101 Arousal Index 19 # Snore 124 Snore Index 23.1 AHI 15.3 AHI Supine 15 AHI Non-Supine N/A NREM AHI 6.3 REM AHI 69.1 RDI 17.0 # Obstructive Apnea 54 # Central Apnea 3 # Mixed Apnea 6 # Hypopneas 19 RERAs 9 Total Respiratory Events 92 Time Below SpO2 89% (min.) 1.6 Mean NREM SpO2 (%) 94 Mean REM SpO2 (%) 94 Mean Sleep SpO2 (%) 94 Min NREM SpO2 (%) 87 Min REM SpO2 (%) 86 Position Supine (min.) 426.6 Position Non-supine (min.) 0.0 LM Index Sleep 31.2 LM Index NREM 21.3 LM Index REM 90.0 Mean Heart Rate (bpm) 49 Min Heart Rate (bpm) 41
--- NOTE | 2017-05-03 15:11 | POLYSOMNOGRAPH REPORT ---
CLINICAL DATA: A 61-year-old male with a BMI of 31, referred by Melissa Navas for a possible baseline/split night study. He is on CPAP at home. He had gastric bypass surgery and is back to assess his sleep apnea. His [place] sleepiness score is 10/24. SLEEP ARCHITECTURE: Total sleep period was 433 minutes. Total sleep time was 321.5 minutes divided between 275.5 minutes of non-REM sleep and 46 minutes of REM sleep. Sleep onset latency was 15 minutes. REM latency was 233 minutes. Sleep efficiency was 72%. Wake after sleep onset was elevated at 111.5 minutes. Sleep consisted of stage N1 10%, stage N2 63%, stage N3 12%, and REM 14%. AROUSAL DATA: One hundred and one arousals were recorded for an index of 19 per hour. Forty six were due to respiratory events. PERIODIC LIMB MOVEMENT DATA: Moderately elevated limb movements during sleep were noted. There were 167 limb movements of sleep noted for an index of 31.2 per hour with arousal index of 2.2 per hour. RESPIRATORY DATA: Moderate sleep apnea was documented. The AHI was 15.3. The RDI was 17. There were 3 central, 54 obstructive, and 6 mixed apneic episodes. The longest duration of apnea was 55 seconds. There were 19 hypopneic episodes. The longest hypopneic episode was 37.8 seconds. There were 9 RERAs. The longest RERA was 19.3 seconds. OXIMETRY DATA: Nocturnal hypoxemia was seen. Oxygen ed was 86% during REM. Mean saturation was 94%. Time below 88% was 6 minutes. ECHOCARDIOGRAM: Heart rate ranged from 41-71 beats per minute. No arrhythmias were noted. PRESS WRITER'S COMMENTS: The patient slept supine. Snoring was mild, rated 2 on a scale of 1-5. He did not meet split night criteria early enough in the study to initiate CPAP. IMPRESSION: Moderate sleep apnea/hypopnea with an apnea/hypopnea index of 15.3 and a respiratory disturbance index of 17. RECOMMENDATIONS: The patient should continue on CPAP. MTDD
== END | disposition home or self-care (01) ==
LOC: C.NEUR 20:00
PROVIDERS: ATTEND Nurse Practitioner Family
DX: G47.33 Obstructive sleep apnea (adult) (pediatric) (principal); G47.00 Insomnia, unspecified; Z99.89 Dependence on other enabling machines and devices; I25.10 Atherosclerotic heart disease of native coronary artery without angina pectoris; K21.9 Gastro-esophageal reflux disease without esophagitis; E66.9 Obesity, unspecified; E11.9 Type 2 diabetes mellitus without complications; F32.9 Major depressive disorder, single episode, unspecified

== ENCOUNTER 2017-05-07 16:52 | Emergency (ER) | payer OTHER ==
[~2017-05-07] VITALS: Ht 182.9 cm; Wt 103.0 kg
[~2017-05-07 16:52] MED LIST changes: -ACET-1693 PO; -ASPCH81X PO; -BUPR1SUB23 SL; -CYAN100048 SQ; -CYNI1000 IM; -NTRGSL4 UT; -PRVHFAIN INH
[2017-05-07 16:54] VITALS: Ht 182.9 cm; Wt 103.0 kg
[2017-05-07] MEDS ORDERED: PRVHFAIN INH (16:54)
[2017-05-07] MEDS ORDERED: OXYCODONE/ACETAMINOPHEN 5-325 TAB PO ONE (17:15)
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
--- NOTE | 2017-05-07 18:09 | DIAGNOSTIC IMAGING REPORT ---
R FEMUR 2 VIEWS ROUTINE, PELVIS 1 OR 2 VIEW ROUTINE HISTORY: 61 years-old Male eval trauma acute pelvis and right leg pain status post trauma COMPARISON: CT abdomen and pelvis 12/29/2016 TECHNIQUE: Single AP view of the pelvis with 2 views of the right femur FINDINGS: PELVIS: Moderate degenerative changes of the bilateral femoral acetabular joints, pubic symphysis and SI joints. There is spurring about the left lesser trochanter. No acute fracture or dislocation identified. Surgical suture material projects over the right hemipelvis. There are degenerative changes noted within the lower lumbar spine. FEMUR: No acute fracture or dislocation identified. Moderate soft tissue swelling lateral to the greater trochanter. Tricompartmental osteoarthritis about the knee with large spur along the superior aspect of the patella. No large joint effusion. IMPRESSION: 1. No acute fracture or dislocation identified. 2. Moderate soft tissue swelling lateral to the proximal right femur. The above report was generated using voice recognition software. It may contain grammatical, syntax or spelling errors. Electronically signed by: Sandro Nunez M.D. 05/07/2017 6:08 PM Dictated Date/Time: 05/07/2017 6:04 PM
[2017-05-07] MEDS ORDERED: ASPCH81X PO (18:16)
[2017-05-07] MEDS ORDERED: BUPR1SUB23 SL (18:16)
[2017-05-07] MEDS ORDERED: CYNI1000 IM (18:19)
[2017-05-07] MEDS ORDERED: ACET-1693 PO (18:21)
--- NOTE | 2017-05-07 18:33 | EMERGENCY ROOM VISIT NOTE ---
ED Visit Note First contact with patient: 16:58 I have personally evaluated this patient examined her and reviewed the pertinent labs and data. I have discussed the case with Brenda Adams NP and agree with the plan. Please refer to the FAMILY SERVICE AIDE note. This patient comes in after suffering a mechanical fall when he slipped on the snow. He had his right hip he does have a moderate hematoma laterally. He has minimal low back pain as well. X-rays were obtained and were unremarkable. My exam he has no shortening or rotation of the hips. He has normal motor and sensation. His abdomen is benign and he has no neurologic deficits. We are also going to get a CAT scan given the size of the hematoma to make sure there is no occult fracture. This is negative he will be able to go home and continues pain medication.
[2017-05-07] MEDS ORDERED: NTRGSL4 UT (19:08)
[2017-05-07] MEDS ORDERED: CYAN100048 SQ (19:08)
--- NOTE | 2017-05-07 19:50 | DIAGNOSTIC IMAGING REPORT ---
PELVIS NO IV/ORAL CONT (CT) HISTORY: 61 years-old Male right hip contusion, eval fracture acute right hip contusion with concern for possible fracture COMPARISON: Right femur and pelvis radiographs of same day, CT abdomen and pelvis 12/29/2016 TECHNIQUE: Multiple axial CT images of the pelvis were obtained without IV contrast. A dose lowering technique was used consistent with the principals of ALARA. FINDINGS: There are moderate degenerative changes about the bilateral femoral acetabular joints. Moderate general changes with partial degenerative bony fusion involving the pubic symphysis. Additionally, there is thickening of the bilateral superior pubic rami, possibly reflecting healed remote fracture deformities. Mild to moderate general changes of the SI joints. Moderate facet arthrosis of the lower lumbar spine with intervertebral disc space narrowing seen most prominently at the L3-L4 level. No evidence of sacral insufficiency fracture. No acute fracture or dislocation. The imaged bilateral femora appear intact. Partially imaged moderate subcutaneous edema about the lateral aspect of the proximal right thigh. No discrete hematoma identified. Postoperative changes of the right lower anterior abdominal wall. Moderate sized stool ball the rectum. No acute intrapelvic abnormality identified. IMPRESSION: 1. Partially imaged moderate subcutaneous edema about the lateral aspect of the proximal right thigh, likely posttraumatic. The right femur appears intact without acute fracture or dislocation identified. 2. Moderate degenerative changes about the bilateral femoral acetabular joints. 3. No acute intrapelvic abnormality identified. The above report was generated using voice recognition software. It may contain grammatical, syntax or spelling errors. Electronically signed by: Sandro Nunez M.D. 05/07/2017 7:49 PM Dictated Date/Time: 05/07/2017 7:41 PM
[2017-05-07 20:09] VITALS: BP 130/70; PULSE 50; TEMP 36.8; O2SAT 98
== END 2017-05-07 20:13 | disposition home or self-care (01) ==
LOC: C.EDB 16:54
DX: S70.01XA Contusion of right hip, initial encounter (principal); W00.0XXA Fall on same level due to ice and snow, initial encounter; Y92.014 Private driveway to single-family (private) house as the place of occurrence of the external cause; Z79.82 Long term (current) use of aspirin; D12.6 Benign neoplasm of colon, unspecified; I25.10 Atherosclerotic heart disease of native coronary artery without angina pectoris; E11.9 Type 2 diabetes mellitus without complications; E78.5 Hyperlipidemia, unspecified; M10.9 Gout, unspecified; M19.90 Unspecified osteoarthritis, unspecified site; K27.7 Chronic peptic ulcer, site unspecified, without hemorrhage or perforation; G47.30 Sleep apnea, unspecified; Z95.5 Presence of coronary angioplasty implant and graft; Z98.84 Bariatric surgery status

== ENCOUNTER → 2017-05-19 | Outpatient (CLI) | payer OTHER ==
[~2017-05-19] MED LIST changes: +ACET-1693 PO; +ASPCH81X PO; -ASPI81TA28 PO; +BUPR1SUB23 SL; +CYNI1000 IM; -ERGO50002 PO; -NALO1SPR; +NTRGSL4 UT; -OXYC20TA32 PO; +PRVHFAIN INH
--- NOTE | 2017-05-20 06:41 | PAP/PSG TECHNICIAN REPORT ---
[facility] Accident Report Clerk Polysomnogram Report Study name: None Report date: 05/20/2017 Study date: 05/19/2017 Referring Physician: Melissa Navas Name: ADOLFO RYAN Interpreting Physician: Paulo Navarrete M.D. Date of : 1955 Accident Report Clerk: Jessica Hackett [facility]. Sex: Male Age: 61 Study Type: PSG PAP Weight: 229 lbs Height: 61 years, Height 6' 0" BMI: 31.05 Medications: DULOXETINE 20 MG, PANTOPRAZOLE 40 MG, OXYCODONE 5 MG, CHANTIX, BACLOFEN 10 MG, MIRALAX, FERROUS SULFATE 325 MG, TRAZODONE 50 MG, VIT B-12, BUPROPION 300 MG, VENTOLIN HFA, NITROSTAT 0.4 MG, ATORVASTATIN 80 MG, FLONASE, ASPIRIN 81 MG, DRISDOL [id number] UNIT Patient History 61 yr-old male here for a new CPAP treatment study. He was found to be positive for DOYLE with an AHI of 15.3. His diagnostic study was on 04/30/17. He chose a Quattro Air full face mask size medium from [employer] due to mouth breathing. The test was started on room air and 4 CMH2O. ETCO2 testing was not utilized during this study. Room 1 Parameters Monitored NPSG: E1-M2, E2-M1, Fp1-M2, Fp2-M1, F3-M2, F4-M2, F4-M1, C3-M2, C4-M2, C4-M1, O1-M2, O2-M2, O2-M1, T3-M2, T4-M1, P3-M2, P4-M1, CHIN1, CHIN2, HR, EKG, Legs, PFLOW, SNOR, FLOW, CFLOW, Tidal Volume, THOR, ABDO, SpO2, PLTH, CPRESS, ETCO2 Wave, ETCO2, pH Sleep Architecture Sleep Stages Time at Lights Off 9:50:09 PM STAGES Time (min.) TST (%) Time at Lights On 5:31:09 AM Wake 85.5 -- Total Recording Time (TRT) 461.00 min. N1 59.0 16 Total Sleep Period (TSP) 445.5 min. N2 225.0 60 Total Sleep Time (TST) 375.5min. N3 60.5 16 Awake Time 85.5 min. REM 31.0 8 Wake after Sleep Onset 70.0 min. Sleep Efficiency (SE) 81 % Sleep Onset Latency (MAMTA) 15.5 min. Number of Stage 1 Shifts None Awakenings 41 Stage Changes 148 Number of REM periods 1 REM 31.0 8 REM Latency 373.5 min. NREM 344.5 92 Body Position Analysis Supine Right Left Side Prone Vertical Total Sleep Time (min.) 350.7 0.0 97.1 97.12 0.0 1.9 Total Sleep Time (%) 74% 0% 26% 26 0% N/A% Total Sleep Time REM (min.) 0.0 0.0 31.0 None 0.0 0.0 Total Sleep Time NREM (min.) 278.4 0.0 66.1 None 0.0 0.0 Intermittent Wake (min.) 72.4 0.0 11.2 None 0.0 1.9 Total Sleep Period (%) 76% None None None None None Arousals Myoclonus (PLM) * Events Count Index Events Count Index Spontaneous 51 8 Events Awake (PLMW) 66 46.3 Respiratory 15 3.0 Events Asleep w/ Arousal (PLMA) 5 0.8 PLM 5 1 Events Asleep w/o Arousal (PLMS) 78 12.5 Snoring 8 1 Total Asleep 83 13.3 Total 79 13 Total 149 19 Respiratory Analysis * CA OA MA CH H RERA Total Count 57 0 0 0 28 1 85 Index 9.1 0.0 0.0 0 4.5 0 13.7 Mean Duration 14.7 0.0 0.0 0.00 20.1 17.3 16.5 Longest Duration 23.3 0.0 0.0 0.00 0.0 17.3 27.8 Respiratory Event Summary Total Supine ~Supine Right Left Prone REM NREM Apneas Count 57 35 22 N/A 22 N/A 0 57 Index 9.1 8 14 N/A 13.6 N/A 0 10 Hypopneas (4% Desat) Count 28 25 3 N/A 3 N/A 3 25 Index 4.5 5.4 2 N/A 1.9 N/A 5.8 4.4 Apneas & All Hypopneas Count 85 60 25 N/A 25 N/A 3 82 Index 13.6 13 15 N/A 15 N/A 5.8 14.3 Respiratory Events (Storage Architect+All Hyp+RERA) Count 85 61 25 N/A 25 N/A 3 82 Index 13.7 13 15 N/A 15.4 N/A 5.8 14.5 Respiratory Related Arousal Count 15 61 0 N/A 0 N/A 0 19 Index 3.0 4 0 N/A 0 N/A 0 3 Snoring Analysis Supine Right Left Prone REM NREM Total Snore duration 2.9 min Snores count 76 N/A 20 N/A 0 96 96 Snore mean duration 1.8 Sec Snores index 16 N/A 12 N/A 0.0 16.7 15.3 TST with snoring (%) 0.8% Desaturation Event Summary: Minimum %SpO2 Event Count Mean/Min/Max Duration(sec.) Desaturation Index % Time In Bed > 90 64 26.4 / 9.3 / 60.0 9.7 86.7 86 - 90 6 21.9 / 13.3 / 36.8 6.1 13.0 81 - 85 0 N/A 0.0 0.3 76 - 80 0 N/A 0.0 0.0 71 - 75 0 N/A 0.0 0.0 66 - 70 0 N/A 0.0 0.0 61 - 65 0 N/A 0.0 0.0 56 - 60 0 N/A 0.0 0.0 51 - 55 0 N/A 0.0 0.0 < 50 0 N/A 0.0 0.0 Total REM NREM Awake <50% 0.0 min. 0.0 min. 0.0 min. 0.0 min. 51 - 60% 0.0 min. 0.0 min. 0.0 min. 0.0 min. 61 - 70% 0.0 min. 0.0 min. 0.0 min. 0.0 min. 71 - 80% 0.0 min. 0.0 min. 0.0 min. 0.0 min. 81 - 90% 60.6 min. 0.0 min. 52.5 min. 8.1 min. 91 - 100% 395.2 min. 30.9 min. 291.9 min. 72.3 min. Average 93 95 92 93 Minimum SpO2 81 92 81 84 Desaturation Event Index 8.6 11.6 9.2 7.0 # Desat. Events below 89% 11 N/A 10 1 Time(%) with Saturation below 89% 2.4 0.0 2.3 0.1 Time(min.) with Saturation below 89% 11.2 0.0 10.5 0.7 Time (mins) REM (mins) NREM (mins) % of TST SpO2 Below 90% 36 N/A N36 6.3 SpO2 Below 88% 3 0 0 2 Heart Rate Analysis Min (bpm) Max (bpm) Average (bpm) Awake 42 64 50 NREM 42 56 48 REM 46 60 55 Overall 42 60 49 Supplemental O2 Values Minimum O2 level: None Value Start Time End Time Accident Report Clerk Comments Mr. Ryan slept in the left and supine positions. One cardiac arrhythmia was noted. No bruxism noted. CPAP was initiated at +4 CMH2O and up-titrated to a level of +6 CMH2O, Cflex 2. Due to the number of central apneas versus hypopneas/obstructive apneas, BiPAP was started at +8/4 CMH2O and up-titrated to a level of +12/6 CMH2O Biflex 3. He continued to have central apneas, so a rate was then added at 10 BPM. A Quattro Air full face mask size medium from [employer] was used during titration due to mouth breathing. He awoke to use the restroom one time during the night. Mr. Ryan stated that he slept about the same as usual. The final report will be interpreted and signed by a sleep physician. The completed physician report will then be placed in the patient medical record. Therapy Event: Therapy (cm H20) 4 6 8/4 10/5 12/6 Total Time at Pressure (min.) 237.2 51.8 23.8 128.0 20.2 TST at Pressure (min.) 205.2 39.3 13.3 105.0 12.7 # Periods 1 1 1 1 1 Sleep Onset (min.) 15.5 0.0 3.5 0.0 0.0 REM Onset (min.) N/A N/A N/A 76.2 N/A Sleep Efficiency % 86 75 56 82 62 Wakefulness (%) 13.5 24.2 44.0 18.0 37.1 Wakefulness (min.) 32.0 12.5 10.5 23.0 7.5 NREM 1 (%) 6.1 11.6 49.7 13.7 45.6 NREM 1 (min.) 14.5 6.0 11.8 17.5 9.2 NREM 2 (%) 54.9 64.2 6.3 44.2 17.3 NREM 2 (min.) 130.2 33.3 1.5 56.5 3.5 NREM 3 (%) 25.5 0.0 0.0 0.0 0.0 NREM 3 (min.) 60.5 0.0 0.0 0.0 0.0 REM (%) 0.0 0.0 0.0 24.2 0.0 REM (min.) 0.0 0.0 0.0 31.0 0.0 # Arousals 22 6 14 24 13 Arousal Index 6.4 9.2 63.1 13.7 61.3 # Snore 44 10 12 25 5 Snore Index 12.9 15.3 54.1 14.3 23.6 AHI 5.3 16.8 31.6 18.9 75.5 AHI Supine 5.3 16.8 31.6 61.1 75.5 AHI Non-Supine N/A N/A N/A 15.4 N/A NREM AHI 5.3 16.8 31.6 24.3 75.5 REM AHI N/A N/A N/A 5.8 N/A RDI 5.6 16.8 31.6 18.9 75.5 # Obstructive 0 0 0 0 0 # Central Ap 14 10 0 25 8 # Mixed 0 0 0 0 0 # Hypopneas 4 1 7 8 8 RERAS 1 0 0 0 0 Total Respiratory Events 19 11 7 33 16 Time Below SpO2 89.00% (min.) 9.4 0.0 0.0 0.1 1.0 Mean NREM SpO2 (%) 92 93 93 93 92 Mean REM SpO2 (%) N/A N/A N/A 95 N/A Mean Sleep SpO2 (%) 92 93 93 94 92 Min NREM SpO2 (%) 81 90 89 88 84 Min REM SpO2 (%) N/A N/A N/A 92 N/A Position Supine (min.) 205.2 39.3 13.3 7.9 12.7 Position Non-supine (min.) 0.0 0.0 0.0 97.1 0.0 LM Index Sleep 7.3 12.2 40.6 20.0 28.3 LM Index NREM 7.3 12.2 40.6 18.7 28.3 LM Index REM N/A N/A N/A 23.2 N/A Mean Heart Rate (bpm) 49 46 46 50 44 Min Heart Rate (bpm) 45 44 44 43 42 CPAP REPORT Therapy Detail Time / Page # Comment CPAP 4 cm H2O Full Face Mask Humidifier on 9:49:59 PM / pg. 221 ROOM AIR CPAP 6 cm H2O Full Face Mask Humidifier on 1:47:23 AM / pg. 696 INCREASED FOR RERAS BiLevel 8/4 cm H2O Full Face Mask Humidifier on 2:39:11 AM / pg. 800 HE HAS HAD MORE CENTRAL APNEAS THAN HYPOPNEAS OR OBSTRUCTIVE APNEAS, CHANGED OVER TO BIPAP BiLevel 10/5 cm H2O Full Face Mask Humidifier on 3:02:58 AM / pg. 847 INCREASED IPAP FOR HYPOPNEAS BiLevel 10/5 cm H2O, Rate 10 bpm Full Face Mask Humidifier on 3:47:10 AM / pg. 936 CONTINUED CENTRAL APNEAS, ADDED A RATE AT 10 BPM BiLevel 12/6 cm H2O, Rate 10 bpm Full Face Mask Humidifier on 5:10:56 AM / pg. 1103 INCREASED IPAP FOR HYPOPNEAS
--- NOTE | 2017-05-21 14:34 | POLYSOMNOGRAPH REPORT ---
CLINICAL DATA: A 61-year-old male with a BMI of 31 referred by Melissa Navas for a CPAP study. He had a sleep study which showed mild to moderate DOYLE with an AHI of 15.3 on 04/30/2017. He chose a Quattro full face mask size medium from [employer]. SLEEP ARCHITECTURE: Total sleep period was 445.5 minutes. Total sleep time was 375.5 minutes divided between 344.5 minutes of non-REM sleep and 31 minutes of REM sleep. Sleep onset latency was 15.5 minutes. REM latency was 37.5 minutes. Sleep efficiency was 81%. Wake after sleep onset was 70 minutes. Sleep consisted of stage N1 16%, stage N2 60%, stage N3 16%, and REM 8%. AROUSAL DATA: Seventy nine arousals were recorded for an index of 13 per hour. Fifty one were spontaneous. PERIODIC LIMB MOVEMENT DATA: Eighty three limb movements during sleep were noted for an index of 13.3 per hour with arousal index of 0.8 per hour. RESPIRATORY DATA: The AHI was 13.6. There were 57 central apneic episodes. The longest apneic episode was 23.3 seconds. There were 28 hypopneic episodes with a mean duration of 20 seconds. OXIMETRY DATA: Transient hypoxemia was seen. Oxygen ed was 81% during non-REM sleep. Mean saturation was 93%. Time below 88% was 3 minutes. ECHOCARDIOGRAM: Heart rates ranged from 42-60 beats per minute. Several PVCs were noted. [employer] TENDER'S COMMENTS AND TREATMENT SUMMARY: The patient used a Quattro full face mask size medium from [employer]. He was started on CPAP but developed treatment onset central apneic episodes early. He was switched to BIPAP / and was titrated up to 12/6. Because of central apneic episodes, he had a backup rate of 10 breaths per minute added. In spite of this, the patient did not have an optimal titration pressure determined. His last AHI was 75.5 at a BIPAP setting of 12/6 with a backup rate of 10 breaths per minute. IMPRESSION: Mild to moderate obstructive sleep apnea with development of complex sleep apnea/treatment onset central apneic episodes. There was no optimal CPAP or BiPAP setting found. RECOMMENDATIONS: The patient may require treatment with ASV because of his complex sleep apnea. Clinical correlation is needed. [facility] HOSPITALJosephine
== END | disposition home or self-care (01) ==
LOC: C.NEUR 20:00
PROVIDERS: ATTEND Nurse Practitioner Family
DX: G47.33 Obstructive sleep apnea (adult) (pediatric) (principal)

== ENCOUNTER 2017-08-26 19:40 | Observation (INO) | payer OTHER ==
[~2017-08-26] VITALS: Ht 182.9 cm; Wt 113.2 kg
[~2017-08-26 19:40] MED LIST changes: -ACET-1693 PO; -ASPCH81X PO; -ATOR-26 PO; -BUPR1SUB23 SL; -CYNI1000 IM; -DULO-24 PO; -DULO60CA44 PO; -FERR325T5 PO; -FLUT0.15 NAE; -LRS10 PO; -NTRGSL4 UT; -POLY335019 PO; -PRVHFAIN INH; -TRAZ-120 PO; -WLLXL300 PO
[2017-08-26] MEDS ORDERED: SODIUM CHLORIDE 0.9% 1000ML 1,000 ML IV STA (20:06)
[2017-08-26] MEDS ORDERED: ONDANSETRON INJ 2 MG/ML 2 ML VIAL IV STA (20:06)
--- NOTE | 2017-08-26 20:11 | EMERGENCY ROOM VISIT NOTE ---
History Report prepared by Shirin: Janeen Betancur Under the Supervision of: Dr. Tom Brown M.D. First contact with patient: 19:58 Chief Complaint: ABDOMINAL PAIN Stated Complaint: BLACK STOUL, STOMACH PAIN History of Present Illness The patient is a 61 year old male who presents to the Emergency Room with complaints of intermittent black stools that started yesterday. The patient rates his discomfort a 7/10 in severity. The patient reports he has had 4-5 episodes of diarrhea and his last episode was green and black. He notes he takes an iron pill. The patient states he has had black stools before when he was diagnosed with an upper GI bleed. He notes he sees Dr. Kwon for GI. The patient had a gastric bypass 3 years ago and has had a few bleeding ulcers since his surgery. He denies taking blood thinners. The patient denies chest pain or shortness of breath. He notes he has a headache, dizziness, and nausea. Source of History: patient Onset: yesterday Symptom Intensity: 7/10 Timing: intermittent Associated Symptoms: + headache, + nausea, + diarrhea, No chest pain, No SOB Review of Systems See HPI for pertinent positives and negatives. A total of ten systems were reviewed and were otherwise negative. Past Medical & Surgical Medical Problems: (1) Benign neoplasm of colon (2) CAD (coronary artery disease) (3) Chest pain (4) Dizziness (5) DM type 2 (diabetes mellitus, type 2) (6) Dyslipidemia (7) GI bleed (8) Gout (9) Melena (10) Osteoarthritis (11) PUD (peptic ulcer disease) (12) Sleep apnea (13) Subscapular bursitis (14) Subscapular pain Surgical Problems: (1) H/O colostomy (2) H/O eye surgery (3) H/O inguinal hernia repair (4) H/O shoulder surgery (5) H/O ventral hernia repair (6) S/P colonoscopy (7) S/P coronary artery stent placement (8) S/p EGD (9) S/P gastric bypass (10) s/p laparoscopic liver procedure Family History Cancer FATHER (lung, ?esophageal) Diabetes mellitus MOTHER BROTHER GRANDFATHER GRANDMOTHER Heart disease FATHER ([place] in 60s) Hypertension Social History Smoking Status: Never Smoker Alcohol Use: none Drug Use: none Marital Status: Housing Status: lives with family Occupation Status: disabled Current/Historical Medications Scheduled Aspirin (Aspirin Chewable), 81 MG PO DAILY Atorvastatin (Lipitor), 80 MG PO QAM Baclofen (Baclofen), 10 MG PO TID Bupropion HCl (Bupropion HCl Xl), 300 MG PO QAM Cyanocobalamin (Cyanocobalamin), 1,000 MCG IM MONTHLY Duloxetine Hcl (Cymbalta), 20 MG PO DAILY Duloxetine Hcl (Cymbalta), 60 MG PO DAILY Ferrous Sulfate (Ferrous Sulfate), 325 MG PO BID Oxycodone Hcl (Oxycodone Hcl), 10 MG PO Q6H Pantoprazole (Protonix), 40 MG PO BID Trazodone Hcl (Desyrel), 50 MG PO HS Scheduled PRN Acetaminophen Tab (Tylenol), 650 MG PO Q6H PRN for Pain or Fever Albuterol (Ventolin Hfa), 2 PUFFS INH QID PRN for SOB/Wheezing Fluticasone Propionate (Nasal) (Flonase Allergy Relief), 2 SPRAYS PEDRITO DAILY PRN for Allergy Symptoms Nitroglycerin (Nitrostat), 0.4 MG UT UD PRN for Chest Pain Polyethylene Glycol 3350 (Miralax), 17 GM PO DAILY PRN for Constipation Allergies Coded Allergies: No Known Allergies (Unverified , 07/20/17) Physical Exam Vital Signs Date Time Temp Pulse Resp B/P (MAP) Pulse Ox O2 Delivery O2 Flow Rate FiO2 08/26/17 21:18 48 127/77 98 Room Air 08/26/17 21:03 47 08/26/17 20:03 98 Room Air 08/26/17 19:51 37.0 61 18 148/75 97 Room Air Physical Exam GENERAL: Awake, alert, fatigue, uncomfortable appearing, in no distress HENT: Normocephalic, atraumatic. Mucous membranes are dry. EYES: Normal conjunctiva. Sclera non-icteric. NECK: Supple. No nuchal rigidity. FROM. No JVD. RESPIRATORY: Clear to auscultation. CARDIAC: Regular rate, normal rhythm. Extremities warm and well perfused. Pulses equal. ABDOMEN: Soft, non-distended. Mild epigastric pain. No rebound or guarding. No masses. RECTAL: Deferred. MUSCULOSKELETAL: Chest examination reveals no tenderness. The back is symmetrical on inspection without obvious abnormality. There is no CVA tenderness to palpation. No joint edema. LOWER EXTREMITIES: Calves are equal size bilaterally and non-tender. No edema. No discoloration. NEURO: Normal sensorium. No sensory or motor deficits noted. SKIN: No rash or jaundice noted. RECTAL: Rectal exam without melena, blood, or stool. Medical Decision & Procedures ER Provider Diagnostic Interpretation: Radiology results as stated below per my review and radiologist interpretation: SINGLE VIEW CHEST CLINICAL HISTORY: GI bleeding. FINDINGS: An AP, portable, upright chest radiograph is compared to study dated 07/20/2017. Correlation is made with chest CT dated 07/20/2017. The examination is degraded by portable technique and patient rotation. The heart is top normal for projection. The pulmonary vascular is noncongested. Emphysema and chronic interstitial thickening are similar to previous. No airspace consolidation or large pleural effusion is identified. No pneumothorax is seen. The skeletal structures are osteopenic. The bony thorax is grossly intact. IMPRESSION: Emphysematous change with no acute cardiopulmonary abnormality. Electronically signed by: Shreyas Crhistine M.D. 08/26/2017 9:30 PM Dictated Date/Time: 08/26/2017 9:[address] SCAN OF THE ABDOMEN AND PELVIS WITH IV CONTRAST CLINICAL HISTORY: Generalized abdominal pain. Melena. COMPARISON STUDY: Abdominal CT dated 12/29/2016. TECHNIQUE: Following the IV administration of 114 cc of Optiray 320, CT scan of the abdomen and pelvis is performed from the lung bases to the proximal femora. Images are reviewed in the axial, sagittal, and coronal planes. IV contrast was administered without complication. A dose lowering technique was utilized adhering to the principles of ALARA. The examination is degraded by motion artifact. CT DOSE: 1091.80 mGycm FINDINGS: Lung bases: The heart is top normal in size and without pericardial effusion. The coronary arteries are densely calcified. The lung bases are clear. Liver: The contrast-enhanced liver is normal in size, contour, and attenuation. Fatty infiltration is seen adjacent to falciform ligament. There is no intrahepatic biliary ductal dilatation. The hepatic veins and portal veins are patent. Gallbladder: Contracted and grossly unremarkable. Spleen: Normal in size and attenuation. Pancreas: Mildly atrophic and grossly unremarkable. Adrenal glands: Unremarkable. Kidneys: The contrast enhanced kidneys demonstrate mild cortical atrophy and are without hydronephrosis. The kidneys enhance symmetrically. Small bilateral renal cysts measure up to 2.0 cm. Additional subcentimeter cortical hypodensities also likely represent cysts but are too small for definitive characterization. Abdominal vasculature: The abdominal aorta is normal in course and caliber noting moderate atherosclerotic calcification. Stomach and bowel: There is a tiny hiatal hernia. There are postoperative changes consistent with a Анна-en-Y gastric bypass surgery. No bowel obstruction is seen. Mild to moderate colonic fecal retention is observed.. The appendix is normal as visualized. Peritoneum: There is no intraperitoneal free air or abdominal ascites. Postoperative changes seen in the right ventral pelvic wall. Lymphadenopathy: None. Pelvic viscera: The bladder, prostate, and seminal vesicles are normal as visualized. Skeletal structures: The skeletal structures are osteopenic. There is moderate lumbosacral spondylosis. No lytic or blastic lesions are seen. Degenerative changes seen in the sacroiliac joints and symphysis pubis. IMPRESSION: 1. There are no acute infectious or inflammatory findings in the abdomen or pelvis. 2. There are postoperative changes consistent with a Анна-en-Y gastric bypass surgery. No bowel obstruction is seen. 3. Additional findings as above. Electronically signed by: Shreyas Christine M.D. 08/26/2017 9:28 PM Dictated Date/Time: 08/26/2017 9:21 PM Laboratory Results 08/26/17 20:03 Red Blood Count 4.77, Mean Corpuscular Volume 88.5, Mean Corpuscular Hemoglobin 30.2, Mean Corpuscular Hemoglobin Concent 34.1, Mean Platelet Volume 10.1, Neutrophils (%) (Auto) 69.0, Lymphocytes (%) (Auto) 20.2, Monocytes (%) (Auto) 8.0, Eosinophils (%) (Auto) 2.3, Basophils (%) (Auto) 0.4, Neutrophils # (Auto) 5.42, Lymphocytes # (Auto) 1.59, Monocytes # (Auto) 0.63, Eosinophils # (Auto) 0.18, Basophils # (Auto) 0.03 08/26/17 20:03 Test 08/26/17 20:03 08/26/17 20:13 White Blood Count 7.86 K/uL (4.8-10.8) Red Blood Count 4.77 M/uL (4.7-6.1) Hemoglobin 14.4 g/dL (14.0-18.0) Hematocrit 42.2 % (42-52) Mean Corpuscular Volume 88.5 fL (80-100) Mean Corpuscular Hemoglobin 30.2 pg (25-34) Mean Corpuscular Hemoglobin Concent 34.1 g/dl (32-36) Platelet Count 155 K/uL (130-400) Mean Platelet Volume 10.1 fL (7.4-10.4) Neutrophils (%) (Auto) 69.0 % Lymphocytes (%) (Auto) 20.2 % Monocytes (%) (Auto) 8.0 % Eosinophils (%) (Auto) 2.3 % Basophils (%) (Auto) 0.4 % Neutrophils # (Auto) 5.42 K/uL (1.4-6.5) Lymphocytes # (Auto) 1.59 K/uL (1.2-3.4) Monocytes # (Auto) 0.63 K/uL (0.11-0.59) Eosinophils # (Auto) 0.18 K/uL (0-0.5) Basophils # (Auto) 0.03 K/uL (0-0.2) RDW Standard Deviation 43.6 fL (36.4-46.3) RDW Coefficient of Variation 13.6 % (11.5-14.5) Immature Granulocyte % (Auto) 0.1 % Immature Granulocyte # (Auto) 0.01 K/uL (0.00-0.02) Prothrombin Time 10.5 SECONDS (9.0-12.0) Prothromb Time International Ratio 1.0 (0.9-1.1) Activated Partial Thromboplast Time 25.5 SECONDS (21.0-31.0) Partial Thromboplastin Ratio 1.0 Anion Gap 9.0 mmol/L (3-11) Est Creatinine Clear Calc Drug Dose 119.4 ml/min Estimated GFR () 110.3 Estimated GFR (Non- 95.2 BUN/Creatinine Ratio 18.6 (10-20) Calcium Level 8.9 mg/dl (8.5-10.1) Total Bilirubin 0.4 mg/dl (0.2-1) Direct Bilirubin 0.1 mg/dl (0-0.2) Aspartate Amino Transf (AST/SGOT) 21 U/L (15-37) Alanine Aminotransferase (ALT/SGPT) 33 U/L (12-78) Alkaline Phosphatase 85 U/L (45-117) Troponin I < 0.015 ng/ml (0-0.045) Total Protein 7.5 gm/dl (6.4-8.2) Albumin 3.6 gm/dl (3.4-5.0) Lipase 176 U/L (73-393) Lactic Acid Level 1.0 mmol/L (0.4-2.0) Laboratory results reviewed by me Medications Administered Medications (Trade) Dose Ordered Sig/Annabelle Route Start Time Stop Time Status Last Admin Dose Admin Sodium Chloride 1,000 ml @ 999 mls/hr Q1H1M STAT IV 08/26/17 20:06 08/26/17 21:06 DC 08/26/17 20:20 999 MLS/HR Pantoprazole Sodium 40 mg/ Syringe 10 ml @ 5 mls/min NOW ONCE IV 08/26/17 20:15 08/26/17 20:16 DC 08/26/17 20:20 5 MLS/MIN Ondansetron HCl (Zofran Inj) 4 mg NOW STAT IV 08/26/17 20:06 08/26/17 20:10 DC 08/26/17 20:20 4 MG Morphine Sulfate (MoRPHine SULFATE INJ) 4 mg NOW STAT IV 08/26/17 20:34 08/26/17 20:35 DC 08/26/17 20:47 4 MG ECG Per My Interpretation Indication: abdominal pain Rate (beats per minute): 54 Rhythm: sinus bradycardia Findings: 1st degree AV block, no acute ischemic change, other (normal axis) ED Course 1999: The patient was evaluated in room C9. A complete history and physical exam was performed. 2210: I discussed the patient [facility] Dr. [facility] He will evaluate the patient for further treatment. Medical Decision I reviewed the patient's past medical history, medications, and the nursing notes as described above. Differential diagnosis: Etiologies such as diverticulosis, AVM, coagulopathy, colitis, inflammatory bowel disease, malignancy, Lizette-Nelson tear, esophagitis, peptic ulcer disease , variceal bleed, gastritis, epistaxis, fissure, hemorrhoids, as well as others were entertained. The patient is a 61-year-old gentleman with a past medical history of gastric bypass as well as history of upper GI bleed secondary to ulcers who presents emergency department with recurrent episodes of melena today per hpi. On arrival the patient is fatigued but no acute distress, afebrile stable vital signs. On exam he has mild epigastric discomfort without discrete tenderness. Rectal exam is negative for melena, blood, stool although anus shows black hue consistent with prior episodes of melena. Labs unremarkable including WBC, H/H , BUN, lactate within normal limits. Chest x-ray without evidence of free air. CT abdomen pelvis negative for acute findings. Patient was given IV Protonix. Given the patient's history with evidence of melena per patient's report, admission for further monitoring and evaluation is reasonable. Case was discussed with Rocael Peter hospitalist, who will evaluate the patient for admission. Medication Reconcilliation Current Medication List: was personally reviewed by me Blood Pressure Screening Patient's blood pressure: Elevated blood pressure (monitor by hospitalist) Consults Time Called: [phone] Consulting Physician: Rocael Peter Returned Call: [phone] I discussed the patient with Rocael [facility] - He will evaluate the patient for further treatment. Impression Primary Impression: GI bleed Scribe Attestation The scribe's documentation has been prepared under my direction and personally reviewed by me in its entirety. I confirm that the note above accurately reflects all work, treatment, procedures, and medical decision making performed by me. Departure Information Dispostion Being Evaluated By Hospitalist Jean Rosen M.D. (PCP) Patient Instructions [facility]
[2017-08-26] MEDS ORDERED: PANTOprazole INJ 40 MG in SYRINGE 0 ML IV ONE (20:15)
[2017-08-26] MEDS ORDERED: OPTIRAY 320 IV PRN (20:15)
[2017-08-26 20:24] LABS: BASO % 0.4 %; BASO ABS # 0.03 K/uL (0-0.2); EOS % 2.3 %; EOS ABS # 0.18 K/uL (0-0.5); HEMATOCRIT 42.2 % (42-52); HEMOGLOBIN 14.4 g/dL (14.0-18.0); IG# 0.01 K/uL (0.00-0.02); LYMPH % 20.2 %; LYMPH ABS # 1.59 K/uL (1.2-3.4); MEAN CELL VOLUME 88.5 fL (80-100); MEAN CORPUSCULAR HEMOGLOBIN 30.2 pg (25-34); MEAN CORPUSCULAR HGB CONC 34.1 g/dl (32-36); MEAN PLATELET VOLUME 10.1 fL (7.4-10.4); MONO ABS # 0.63 K/uL (0.11-0.59); NEUT ABS # 5.42 K/uL (1.4-6.5); PLATELET COUNT 155 K/uL (130-400); RED CELL DISTRIBUTION WIDTH CV 13.6 % (11.5-14.5); RED CELL DISTRIBUTION WIDTH SD 43.6 fL (36.4-46.3); WHITE BLOOD COUNT 7.86 K/uL (4.8-10.8)
[2017-08-26] MEDS ORDERED: MoRPHine SULFATE 4 MG/ML 1 ML CARP\\VIAL IV STA (20:34)
[2017-08-26 20:41] LABS: PTT PATIENT 25.5 SECONDS (21.0-31.0)
[2017-08-26 20:46] LABS: ALBUMIN 3.6 gm/dl (3.4-5.0); ALKALINE PHOSPHATASE 85 U/L (45-117); ALT/SGPT 33 U/L (12-78); AST/SGOT 21 U/L (15-37); BLOOD UREA NITROGEN 16 mg/dl (7-18); CALCIUM 8.9 mg/dl (8.5-10.1); CARBON DIOXIDE 24 mmol/L (21-32); CREATININE 0.84 mg/dl (0.60-1.40); GLUCOSE 97 mg/dl (70-99); LIPASE 176 U/L (73-393); POTASSIUM 3.5 mmol/L (3.5-5.1); SODIUM 140 mmol/L (136-145); TOTAL PROTEIN 7.5 gm/dl (6.4-8.2)
--- NOTE | 2017-08-26 21:29 | DIAGNOSTIC IMAGING REPORT ---
CT SCAN OF THE ABDOMEN AND PELVIS WITH IV CONTRAST CLINICAL HISTORY: Generalized abdominal pain. Melena. COMPARISON STUDY: Abdominal CT dated 12/29/2016. TECHNIQUE: Following the IV administration of 114 cc of Optiray 320, CT scan of the abdomen and pelvis is performed from the lung bases to the proximal femora. Images are reviewed in the axial, sagittal, and coronal planes. IV contrast was administered without complication. A dose lowering technique was utilized adhering to the principles of ALARA. The examination is degraded by motion artifact. CT DOSE: 1091.80 mGycm FINDINGS: Lung bases: The heart is top normal in size and without pericardial effusion. The coronary arteries are densely calcified. The lung bases are clear. Liver: The contrast-enhanced liver is normal in size, contour, and attenuation. Fatty infiltration is seen adjacent to falciform ligament. There is no intrahepatic biliary ductal dilatation. The hepatic veins and portal veins are patent. Gallbladder: Contracted and grossly unremarkable. Spleen: Normal in size and attenuation. Pancreas: Mildly atrophic and grossly unremarkable. Adrenal glands: Unremarkable. Kidneys: The contrast enhanced kidneys demonstrate mild cortical atrophy and are without hydronephrosis. The kidneys enhance symmetrically. Small bilateral renal cysts measure up to 2.0 cm. Additional subcentimeter cortical hypodensities also likely represent cysts but are too small for definitive characterization. Abdominal vasculature: The abdominal aorta is normal in course and caliber noting moderate atherosclerotic calcification. Stomach and bowel: There is a tiny hiatal hernia. There are postoperative changes consistent with a Анна-en-Y gastric bypass surgery. No bowel obstruction is seen. Mild to moderate colonic fecal retention is observed.. The appendix is normal as visualized. Peritoneum: There is no intraperitoneal free air or abdominal ascites. Postoperative changes seen in the right ventral pelvic wall. Lymphadenopathy: None. Pelvic viscera: The bladder, prostate, and seminal vesicles are normal as visualized. Skeletal structures: The skeletal structures are osteopenic. There is moderate lumbosacral spondylosis. No lytic or blastic lesions are seen. Degenerative changes seen in the sacroiliac joints and symphysis pubis. IMPRESSION: 1. There are no acute infectious or inflammatory findings in the abdomen or pelvis. 2. There are postoperative changes consistent with a Анна-en-Y gastric bypass surgery. No bowel obstruction is seen. 3. Additional findings as above. Electronically signed by: Shreyas Christine M.D. 08/26/2017 9:28 PM Dictated Date/Time: 08/26/2017 9:21 PM
--- NOTE | 2017-08-26 21:31 | DIAGNOSTIC IMAGING REPORT ---
SINGLE VIEW CHEST CLINICAL HISTORY: GI bleeding. FINDINGS: An AP, portable, upright chest radiograph is compared to study dated 07/20/2017. Correlation is made with chest CT dated 07/20/2017. The examination is degraded by portable technique and patient rotation. The heart is top normal for projection. The pulmonary vascular is noncongested. Emphysema and chronic interstitial thickening are similar to previous. No airspace consolidation or large pleural effusion is identified. No pneumothorax is seen. The skeletal structures are osteopenic. The bony thorax is grossly intact. IMPRESSION: Emphysematous change with no acute cardiopulmonary abnormality. Electronically signed by: Shreyas Christine M.D. 08/26/2017 9:30 PM Dictated Date/Time: 08/26/2017 9:28 PM
[2017-08-26] MEDS ORDERED: ACETAMINOPHEN 325 MG TAB PO PRN (22:30)
[2017-08-26] MEDS ORDERED: ONDANSETRON INJ 2 MG/ML 2 ML VIAL IV PRN (22:30)
[2017-08-26] MEDS ORDERED: IV FLUIDS COMPLETED PRN (22:30)
[2017-08-26] MEDS ORDERED: FLUTICASONE PROPIONATE NA SPR 16 GM BTL NAE PRN (23:00)
[2017-08-26] MEDS ORDERED: ALBUTEROL HFA 8 GM INHALER INH PRN (23:00)
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
[2017-08-26] MEDS ORDERED: PANTOprazole INJ 80 MG in DEXTROSE 5% 100ML IV STA (23:43)
[2017-08-26] MEDS: MoRPHine SULFATE 4 MG/ML 1 ML CARP\\VIAL IV PRN (23:49)
[2017-08-26] MEDS ORDERED: OXYCODONE HCL IR 5 MG TAB (IMMEDIATE RELEASE) PO ONE (23:59)
[2017-08-27] VITALS (10 sets, daily range): BP systolic 115–164; BP diastolic 67–88; PULSE 42–86; TEMP 36.3–37.1; O2SAT 95–98; Ht 182.9 cm; Wt 113.2 kg
[2017-08-27] MEDS: PANTOprazole INJ 40 MG in DEXTROSE 5% 100ML IV SCH ×5 (00:08→20:04)
[2017-08-27] MEDS: D5NSS + 20MEQ KCL 1,000 ML IV SCH ×4 (01:01→23:31)
[2017-08-27 02:03] LABS: HEMATOCRIT 39.2 % (42-52)
[2017-08-27 02:25] LABS: CALCIUM 8.2 mg/dl (8.5-10.1); CREATININE 0.8 mg/dl (0.60-1.40); POTASSIUM 3.6 mmol/L (3.5-5.1)
[2017-08-27] MEDS: OXYCODONE HCL IR 5 MG TAB (IMMEDIATE RELEASE) PO PRN ×3 (05:49→20:06)
[2017-08-27 08:06] LABS: HEMATOCRIT 38.6 % (42-52); HEMOGLOBIN 12.5 g/dL (14.0-18.0)
[2017-08-27] MEDS: BACLOFEN 10 MG TAB PO SCH ×3 (08:42→21:57)
[2017-08-27] MEDS: DULOXETINE HCL 20 MG CAP PO SCH (08:42)
[2017-08-27] MEDS: DULOXETINE HCL 60 MG CAP PO SCH (08:42)
[2017-08-27] MEDS: BuPROPion XL 300 MG TABCR PO SCH (08:42)
[2017-08-27] MEDS: MoRPHine SULFATE 4 MG/ML 1 ML CARP\\VIAL IV PRN ×2 (08:47→17:52)
[2017-08-27] MEDS ORDERED: FERROUS SULFATE 325 MG TAB PO SCH (09:00)
[2017-08-27] MEDS ORDERED: OXYCODONE HCL 10 MG PO SCH (09:00)
[2017-08-27] MEDS ORDERED: NURSING VERBAL MED ORDER ONE (09:15)
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
[2017-08-27 14:03] LABS: HEMATOCRIT 39.8 % (42-52); HEMOGLOBIN 13.1 g/dL (14.0-18.0)
[2017-08-27] MEDS ORDERED: PROPOFOL IV EMULSION 10 MG/ML 20 ML VIAL ONE (16:13)
[2017-08-27] MEDS ORDERED: LIDOCAINE HCL 2% 2 ML VIAL (20MG/ML) ONE (16:13)
[2017-08-27] MEDS ORDERED: ONDANSETRON INJ 2 MG/ML 2 ML VIAL ONE (16:13)
[2017-08-27] MEDS ORDERED: GLYCOPYRROLATE INJ 0.2 MG/ML VIAL ONE (16:36)
[2017-08-27] MEDS ORDERED: ATROPINE SO4 1 MG/ML 1ML VIAL ONE (16:36)
[2017-08-27] MEDS ORDERED: SODIUM CHLORIDE 0.9% INJ 10 ML VIAL ONE (16:37)
--- NOTE | 2017-08-27 16:55 | GI REPORT ---
Patient Name: Chance Ryan Procedure Date: 08/27/2017 4:23 PM Date of : 1955 Admit Type: Inpatient Age: 61 Gender: Male Attending MD: Laurel Kessler MD Procedure: Upper GI endoscopy Providers: Laurel Kessler MD Referring MD: Jean Villarreal Indications: Abdominal pain Medicines: See the Anesthesia note for documentation of the administered medications Complications: No immediate complications. Estimated Blood Loss: Estimated blood loss: none. Procedure: Pre-Anesthesia Assessment: - After reviewing the risks and benefits, the patient was deemed in satisfactory condition to undergo the procedure. - ASA Grade Assessment: III - A patient with severe systemic disease. After obtaining informed consent, the endoscope was passed under direct vision. Throughout the procedure, the patient's blood pressure, pulse, and oxygen saturations were monitored continuously. The On-site loaner was introduced through the mouth, and advanced to the afferent and efferent jejunal loops. The upper GI endoscopy was accomplished without difficulty. The patient tolerated the procedure well. Findings: The examined esophagus was normal. There was evidence of a prior gastro-enteric anastamosis. The mucosa of the gastric pouch was unremarkable. 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 The small intestine was unremarkable. Recommendation: - Discharge patient to floor. OK for d/c home tomorrow if hgb stable. Please d/c home on BID PPI. Sonali Christy MD 08/27/2017 4:55:10 PM This report has been signed electronically. Note Initiated On: 08/27/2017 4:23 PM Number of Addenda: 0 I attest to the content of the Intraoperative Record and orders documented therein, exceptions below {[id number]}
--- NOTE | 2017-08-27 17:11 | Anesthesiology Progress Note ---
Anesthesia Post Op Note Date & Time Aug 27, 2017 at 17:11 Vital Signs Pain Intensity: 6.0 Vital Signs Past 12 Hours Date Time Temp Pulse Resp B/P (MAP) Pulse Ox O2 Delivery O2 Flow Rate FiO2 08/27/17 16:58 61 20 159/91 (113) 97 Room Air 08/27/17 16:43 42 18 166/97 (120) 97 Room Air 08/27/17 15:59 37.1 42 18 161/88 (112) 97 Room Air 08/27/17 15:54 36.9 40 16 153/83 (106) 96 Room Air 08/27/17 08:00 95 Room Air 08/27/17 07:56 36.8 49 18 122/75 (91) 95 Room Air Notes Mental Status: alert / awake / arousable, participated in evaluation Pt Amnestic to Procedure: Yes Nausea / Vomiting: adequately controlled Pain: adequately controlled Airway Patency, RR, SpO2: stable & adequate BP & HR: stable & adequate Hydration State: stable & adequate Anesthetic Complications: no major complications apparent
--- NOTE | 2017-08-27 18:32 | Progress Note ---
Medicine Progress Note Date & Time of Visit: Aug 27, 2017 at 18:32. Subjective Patient was seen earlier this afternoon, is scheduled to undergo an EGD today. Denies any additional bowel movements since being in the hospital. Objective Last 8 Hrs Date Time Temp Pulse Resp B/P (MAP) Pulse Ox O2 Delivery O2 Flow Rate FiO2 08/27/17 17:13 62 20 159/147 (151) 98 Room Air 08/27/17 16:58 61 20 159/91 (113) 97 Room Air 08/27/17 16:43 42 18 166/97 (120) 97 Room Air 08/27/17 16:00 98 Room Air 08/27/17 15:59 37.1 42 18 161/88 (112) 97 Room Air 08/27/17 15:54 36.9 40 16 153/83 (106) 96 Room Air Physical Exam: GENERAL: Patient is in no acute distress. HEENT: No acute trauma, mucous membranes moist, no nasal congestion, no scleral icterus, conjunctiva clear NECK: No stridor, trachea is midline. LUNGS: Clear to auscultation bilaterally, no wheeze, no rhonchi, breath sounds equal. HEART: Without murmurs gallops or rubs, regular rate and rhythm. ABDOMEN: Soft, nondistended, bowel sounds positive, no organomegaly appreciated , mildly tender across the upper abdomen and epigastric area EXTREMITIES: No cyanosis or edema, moving all extremities without pain or difficulty, no signs for acute trauma. NEUROLOGIC: Oriented x 3, no acute motor or sensory deficits, no focal weakness. SKIN: No rash, no jaundice, no diaphoresis. Laboratory Results: Last 24 Hours Test 08/26/17 20:03 08/26/17 20:13 08/27/17 01:49 08/27/17 07:56 White Blood Count 7.86 K/uL Red Blood Count 4.77 M/uL Hemoglobin 14.4 g/dL 13.0 g/dL 12.5 g/dL Hematocrit 42.2 % 39.2 % 38.6 % Mean Corpuscular Volume 88.5 fL Mean Corpuscular Hemoglobin 30.2 pg Mean Corpuscular Hemoglobin Concent 34.1 g/dl Platelet Count 155 K/uL Mean Platelet Volume 10.1 fL Neutrophils (%) (Auto) 69.0 % Lymphocytes (%) (Auto) 20.2 % Monocytes (%) (Auto) 8.0 % Eosinophils (%) (Auto) 2.3 % Basophils (%) (Auto) 0.4 % Neutrophils # (Auto) 5.42 K/uL Lymphocytes # (Auto) 1.59 K/uL Monocytes # (Auto) 0.63 K/uL Eosinophils # (Auto) 0.18 K/uL Basophils # (Auto) 0.03 K/uL RDW Standard Deviation 43.6 fL RDW Coefficient of Variation 13.6 % Immature Granulocyte % (Auto) 0.1 % Immature Granulocyte # (Auto) 0.01 K/uL Prothrombin Time 10.5 SECONDS Prothromb Time International Ratio 1.0 Activated Partial Thromboplast Time 25.5 SECONDS Partial Thromboplastin Ratio 1.0 Sodium Level 140 mmol/L 141 mmol/L Potassium Level 3.5 mmol/L 3.6 mmol/L Chloride Level 107 mmol/L 107 mmol/L Carbon Dioxide Level 24 mmol/L 27 mmol/L Anion Gap 9.0 mmol/L 7.0 mmol/L Blood Urea Nitrogen 16 mg/dl 13 mg/dl Creatinine 0.84 mg/dl 0.80 mg/dl Est Creatinine Clear Calc Drug Dose 119.4 ml/min 125.0 ml/min Estimated GFR () 110.3 112.5 Estimated GFR (Non- 95.2 97.1 BUN/Creatinine Ratio 18.6 16.3 Random Glucose 97 mg/dl 106 mg/dl Calcium Level 8.9 mg/dl 8.2 mg/dl Total Bilirubin 0.4 mg/dl Direct Bilirubin 0.1 mg/dl Aspartate Amino Transf (AST/SGOT) 21 U/L Alanine Aminotransferase (ALT/SGPT) 33 U/L Alkaline Phosphatase 85 U/L Troponin I < 0.015 ng/ml Total Protein 7.5 gm/dl Albumin 3.6 gm/dl Lipase 176 U/L Lactic Acid Level 1.0 mmol/L Magnesium Level 1.9 mg/dl Test 08/27/17 13:48 Hemoglobin 13.1 g/dL Hematocrit 39.8 % Assessment & Plan MELENA: -known prior gastric bypass surgery with prior anastomotic ulcers -on Protonix drip -given morphine for pain -NPO for EGD today -continued on IV fluids -GI consulted, planning EGD today -monitor H&H q6 hours -holding aspirin at this time till further recommendations from GI after EGD DIARRHEA: -check C. difficile and stool cultures -continue intravenous fluids SINUS BRADYCARDIA WITH FIRST-DEGREE AV BLOCK -asymptomatic -check repeat EKG in the morning -avoid AV blocking meds CAD: with prior stent placement -hold aspirin for now given possible upper GI bleed -holding statin as well for diarrhea -No cardiac symptoms -not on a BB, likely due to bradycardia and AV block CHRONIC PAIN: SECONDARY TO CERVICAL DISC DISEASE -continue usual medications including baclofen and Oxycontin IR DEPRESSION: -continue trazodone, Wellbutrin, and Cymbalta Current Inpatient Medications: Current Inpatient Medications Medications (Trade) Dose Ordered Sig/Annabelle Route Start Time Stop Time Status Last Admin Dose Admin Ioversol (Optiray 320) 111 ml UD PRN IV 08/26/17 20:15 08/30/17 20:14 Miscellaneous (Iv Fluids Completed) 1 ea PRN PRN N/A 08/26/17 22:30 08/26/18 22:29 Acetaminophen (Tylenol Tab) 650 mg Q4H PRN PO 08/26/17 22:30 09/25/17 22:29 Ondansetron HCl (Zofran Inj) 4 mg Q6H PRN IV 08/26/17 22:30 09/25/17 22:29 Potassium Chloride/Dextrose/ Sod Cl 1,000 ml @ 125 mls/hr Q8H IV 08/26/17 23:59 09/25/17 23:58 08/27/17 15:29 125 MLS/HR Albuterol (Ventolin Hfa Inhaler) 2 puffs QID PRN INH 08/26/17 23:00 09/25/17 22:59 Baclofen (Lioresal Tab) 10 mg TID PO 08/27/17 09:00 09/26/17 08:59 08/27/17 13:39 10 MG Duloxetine HCl (Cymbalta Cap) 20 mg DAILY PO 08/27/17 09:00 09/26/17 08:59 08/27/17 08:42 20 MG Duloxetine HCl (Cymbalta Cap) 60 mg DAILY PO 08/27/17 09:00 09/26/17 08:59 08/27/17 08:42 60 MG Ferrous Sulfate (Feosol Tab) 325 mg BID PO 08/27/17 09:00 09/26/17 08:59 Future Hold Fluticasone Propionate (Flonase Nasal [place]) 2 sprays DAILY PRN PEDRITO 08/26/17 23:00 09/25/17 22:59 Trazodone HCl (Desyrel Tab) 50 mg HS PO 08/27/17 21:00 09/26/17 20:59 Morphine Sulfate (MoRPHine SULFATE INJ) 3 mg Q6H PRN IV 08/26/17 23:00 09/09/17 22:59 08/27/17 17:52 3 MG Bupropion HCl (Wellbutrin-Xl Tab) 300 mg QAM PO 08/27/17 09:00 09/26/17 08:59 08/27/17 08:42 300 MG Pantoprazole Sodium 40 mg/ Dextrose 100 ml @ 20 mls/hr Q5H IV 08/26/17 23:59 09/25/17 23:58 08/27/17 15:31 20 MLS/HR Oxycodone HCl (Roxicodone Immediate Rel Tab) 20 mg Q6HWA PRN PO 08/27/17 15:45 09/10/17 00:00
[2017-08-27 20:23] LABS: HEMATOCRIT 39.9 % (42-52); HEMOGLOBIN 12.9 g/dL (14.0-18.0)
[2017-08-27] MEDS: TRAZODONE HCL 50 MG TAB PO SCH (21:57)
[2017-08-28] MEDS: MoRPHine SULFATE 4 MG/ML 1 ML CARP\\VIAL IV PRN ×4 (00:01→18:56)
[2017-08-28] MEDS: PANTOprazole INJ 40 MG in DEXTROSE 5% 100ML IV SCH ×5 (00:59→21:42)
[2017-08-28] MEDS: OXYCODONE HCL IR 5 MG TAB (IMMEDIATE RELEASE) PO PRN ×4 (02:01→21:42)
[2017-08-28 07:02] VITALS: BP 107/64; PULSE 46; TEMP 36.5; O2SAT 98
[2017-08-28] MEDS: D5NSS + 20MEQ KCL 1,000 ML IV SCH ×2 (07:14→15:38)
[2017-08-28] MEDS: BACLOFEN 10 MG TAB PO SCH ×3 (08:49→20:50)
[2017-08-28] MEDS: BuPROPion XL 300 MG TABCR PO SCH (08:49)
[2017-08-28] MEDS: DULOXETINE HCL 20 MG CAP PO SCH (08:50)
[2017-08-28] MEDS: DULOXETINE HCL 60 MG CAP PO SCH (08:50)
[2017-08-28 14:52] VITALS: BP 150/76; PULSE 43; TEMP 36.9; O2SAT 97
--- NOTE | 2017-08-28 17:56 | Progress Note ---
Medicine Progress Note Date & Time of Visit: Aug 28, 2017 at 17:54. Subjective Patient reports feeling better overall, tolerating liquid diet and does want to advance to solids. No additional bowel movements. No overnight events noted. No dizziness or lightheadedness. Epigastric pain is present but improving. No other acute complaints. Objective Last 8 Hrs Date Time Temp Pulse Resp B/P (MAP) Pulse Ox O2 Delivery O2 Flow Rate FiO2 08/28/17 16:00 Room Air 08/28/17 14:52 36.9 43 18 150/76 (100) 97 Room Air Physical Exam: GENERAL: Patient is in no acute distress. HEENT: No acute trauma, mucous membranes moist, no nasal congestion, no scleral icterus, conjunctiva clear NECK: No stridor, trachea is midline. LUNGS: Clear to auscultation bilaterally, no wheeze, no rhonchi, breath sounds equal. HEART: Without murmurs gallops or rubs, regular rate and rhythm. ABDOMEN: Soft, nondistended, bowel sounds positive, no organomegaly appreciated , mildly tender across the upper abdomen and epigastric area EXTREMITIES: No cyanosis or edema, moving all extremities without pain or difficulty, no signs for acute trauma. NEUROLOGIC: Oriented x 3, no acute motor or sensory deficits, no focal weakness. SKIN: No rash, no jaundice, no diaphoresis. Laboratory Results: Last 24 Hours Test 08/27/17 20:04 Hemoglobin 12.9 g/dL Hematocrit 39.9 % Assessment & Plan MELENA: -known prior gastric bypass surgery with prior anastomotic ulcers -on Protonix drip -given morphine for pain -diet advanced to clears and now to solids -stop IV fluids -GI consulted, EGD showed ulceration at staple line at anastomosis site, recommend PPI BID -monitor H&H; has remained 12-13 since the initial drop from 14 -holding aspirin at this time till further recommendations from GI after EGD DIARRHEA: improved -check C. difficile and stool cultures -d/c fluids SINUS BRADYCARDIA WITH FIRST-DEGREE AV BLOCK -asymptomatic -avoid AV blocking meds CAD: with prior stent placement -hold aspirin for now given possible upper GI bleed -holding statin as well for diarrhea -No cardiac symptoms -not on a BB, likely due to bradycardia and AV block CHRONIC PAIN: SECONDARY TO CERVICAL DISC DISEASE -continue usual medications including baclofen and Oxycontin IR which have been continued DEPRESSION: -continue trazodone, Wellbutrin, and Cymbalta Current Inpatient Medications: Current Inpatient Medications Medications (Trade) Dose Ordered Sig/Annabelle Route Start Time Stop Time Status Last Admin Dose Admin Ioversol (Optiray 320) 111 ml UD PRN IV 08/26/17 20:15 08/30/17 20:14 Miscellaneous (Iv Fluids Completed) 1 ea PRN PRN N/A 08/26/17 22:30 08/26/18 22:29 Acetaminophen (Tylenol Tab) 650 mg Q4H PRN PO 08/26/17 22:30 09/25/17 22:29 Ondansetron HCl (Zofran Inj) 4 mg Q6H PRN IV 08/26/17 22:30 09/25/17 22:29 Potassium Chloride/Dextrose/ Sod Cl 1,000 ml @ 125 mls/hr Q8H IV 08/26/17 23:59 09/25/17 23:58 08/28/17 15:38 125 MLS/HR Albuterol (Ventolin Hfa Inhaler) 2 puffs QID PRN INH 08/26/17 23:00 09/25/17 22:59 Baclofen (Lioresal Tab) 10 mg TID PO 08/27/17 09:00 09/26/17 08:59 08/28/17 14:21 10 MG Duloxetine HCl (Cymbalta Cap) 20 mg DAILY PO 08/27/17 09:00 09/26/17 08:59 08/28/17 08:50 20 MG Duloxetine HCl (Cymbalta Cap) 60 mg DAILY PO 08/27/17 09:00 09/26/17 08:59 08/28/17 08:50 60 MG Ferrous Sulfate (Feosol Tab) 325 mg BID PO 08/27/17 09:00 09/26/17 08:59 Future Hold Fluticasone Propionate (Flonase Nasal [place]) 2 sprays DAILY PRN PEDRITO 08/26/17 23:00 09/25/17 22:59 Trazodone HCl (Desyrel Tab) 50 mg HS PO 08/27/17 21:00 09/26/17 20:59 08/27/17 21:57 50 MG Morphine Sulfate (MoRPHine SULFATE INJ) 3 mg Q6H PRN IV 08/26/17 23:00 09/09/17 22:59 08/28/17 12:33 3 MG Bupropion HCl (Wellbutrin-Xl Tab) 300 mg QAM PO 08/27/17 09:00 09/26/17 08:59 08/28/17 08:49 300 MG Pantoprazole Sodium 40 mg/ Dextrose 100 ml @ 20 mls/hr Q5H IV 08/26/17 23:59 09/25/17 23:58 08/28/17 16:29 20 MLS/HR Oxycodone HCl (Roxicodone Immediate Rel Tab) 20 mg Q6HWA PRN PO 08/27/17 15:45 09/10/17 00:00 08/28/17 15:40 20 MG
[2017-08-28] MEDS: TRAZODONE HCL 50 MG TAB PO SCH (20:50)
[2017-08-28 21:27] LABS: HEMATOCRIT 38.2 % (42-52); HEMOGLOBIN 12.9 g/dL (14.0-18.0); MEAN CELL VOLUME 89.3 fL (80-100); MEAN CORPUSCULAR HEMOGLOBIN 30.1 pg (25-34); MEAN CORPUSCULAR HGB CONC 33.8 g/dl (32-36); MEAN PLATELET VOLUME 9.9 fL (7.4-10.4); PLATELET COUNT 118 K/uL (130-400); RED CELL DISTRIBUTION WIDTH CV 13.4 % (11.5-14.5); RED CELL DISTRIBUTION WIDTH SD 43.6 fL (36.4-46.3); WHITE BLOOD COUNT 6.28 K/uL (4.8-10.8)
[2017-08-28 22:11] VITALS: PULSE 60; O2SAT 97
[2017-08-28 23:33] VITALS: BP 138/79; PULSE 54; TEMP 36.8; O2SAT 95
[2017-08-29] MEDS: PANTOprazole INJ 40 MG in DEXTROSE 5% 100ML IV SCH ×2 (01:27→06:42)
[2017-08-29] MEDS: MoRPHine SULFATE 4 MG/ML 1 ML CARP\\VIAL IV PRN (01:28)
[2017-08-29] MEDS: OXYCODONE HCL IR 5 MG TAB (IMMEDIATE RELEASE) PO PRN ×2 (03:43→09:27)
[2017-08-29 04:04] VITALS: BP 133/73; PULSE 48; TEMP 36.7; O2SAT 98
[2017-08-29 04:07] VITALS: PULSE 59; O2SAT 96
[2017-08-29 07:40] VITALS: BP 150/76; PULSE 51; TEMP 36.6; O2SAT 99
[2017-08-29] MEDS: BACLOFEN 10 MG TAB PO SCH (08:29)
[2017-08-29] MEDS: BuPROPion XL 300 MG TABCR PO SCH (08:29)
[2017-08-29] MEDS: DULOXETINE HCL 60 MG CAP PO SCH (08:29)
[2017-08-29] MEDS: DULOXETINE HCL 20 MG CAP PO SCH (08:29)
[2017-08-29] MEDS ORDERED: PANT40TA PO (08:52)
--- NOTE | 2017-08-29 09:38 | Discharge Instructions ---
Discharge Instructions Date of Service Aug 29, 2017. Admission Reason for Admission: Melena Discharge Discharge Diagnosis / Problem: Melena, Anastamotic ulcers Discharge Goals Goal(s): Therapeutic intervention Activity Recommendations Activity Limitations: as noted below Lifting Limitations: gradually increase as tolerated Exercise/Sports Limitations: gradually increase as tolerated . Instructions / Follow-Up Instructions / Follow-Up Please see your Primary care physician on Friday, September 03 at 12:45PM for hospital follow up Please expect a call from [facility] regarding scheduling a follow up with them within the next 6-8 weeks Current Hospital Diet Patient's current hospital diet: AHA Diet (Heart Healthy), Diabetes Type 2 Diet Discharge Diet Recommended Diet: AHA Diet (Heart Healthy), Diabetes Type 2 Diet Procedures Procedures Performed: EGD Pending Studies Studies pending at discharge: no Laboratory Results Lipid Panel Test 07/20/17 07:30 Range/Units Triglycerides Level 58 0-150 mg/dl Cholesterol Level 91 0-200 mg/dl HDL Cholesterol 50 mg/dl Cholesterol/HDL Ratio 1.8 LDL Cholesterol, Calculated 29 mg/dl Medical Emergencies . Who to Call and When: Medical Emergencies: If at any time you feel your situation is an emergency, please call 911 immediately. . Non-Emergent Contact Non-Emergency issues call your: Primary Care Provider, [employer] . . "Provider Documentation" section prepared by Yue Massey. .
--- NOTE | 2017-08-29 09:45 | Discharge Summary ---
Discharge Summary Date of Service Aug 29, 2017. Discharge Summary Admission Date: Aug 26, 2017 at 22:18 Discharge Date: Aug 29, 2017 Discharge Disposition: Home Principal Diagnosis: Melena Procedures: EGD Consultations: GI Pending Studies/Follow-Up: Follow up with [facility] Center in [facility], Follow up with PCP Medication Reconciliation Continued Medications: Acetaminophen Tab (Tylenol) 325 Mg Tab 650 MG PO Q6H PRN for Pain or Fever, TAB Albuterol (Ventolin Hfa) 60 Puffs/5400 Mcg Aers 2 PUFFS INH Q4H PRN for SOB/Wheezing Aspirin (Aspirin Chewable) 81 Mg Chew 81 MG PO DAILY, TAB Atorvastatin (Lipitor) 80 Mg Tab 80 MG PO QAM Baclofen (Baclofen) 10 Mg Tab 10 MG PO TID Bupropion HCl (Bupropion HCl Xl) 300 Mg Tabcr 300 MG PO QAM Cyanocobalamin (Cyanocobalamin) 1,000 Mcg/Ml Inj 1000 MCG IM Q6WK Duloxetine Hcl (Cymbalta) 20 Mg Cap 20 MG PO DAILY, CAP TAKE ONE 20 MG CAPSULE ALONG WITH ONE 60 MG CAPSULE TO EQUAL 80 MG DAILY DOSE Duloxetine Hcl (Cymbalta) 60 Mg Cap 60 MG PO DAILY, CAP TAKE ONE 60 MG CAPSULE ALONG WITH ONE 20 MG CAPSULE TO EQUAL 80 MG DAILY DOSE Ferrous Sulfate (Ferrous Sulfate) 325 Mg Tab 325 MG PO BID Fluticasone Propionate (Nasal) (Flonase Allergy Relief) 50 Mcg/Act Spr 2 SPRAYS PEDRITO DAILY PRN for Allergy Symptoms Nitroglycerin (Nitrostat) 0.4 Mg/1 Tab Subl 0.4 MG UT UD PRN for Chest Pain PLACE ONE TABLET UNDER THE TONGUE EVERY 5 MINUTES FOR UP TO 3 DOSES OVER 15 MINUTES IF NEEDED FOR CHEST PAIN Oxycodone Hcl (Oxycodone Hcl) 20 Mg Tab 10 MG PO Q6H Pantoprazole (Protonix) 40 Mg Tab 40 MG PO BID for 90 Days, #180 CAP (This prescription has been renewed) Polyethylene Glycol 3350 (Miralax) 1 Pow Pow 17 GM PO DAILY PRN for Constipation, GM MIX WITH 8 OUNCES OF WATER OR JUICE Trazodone Hcl (Desyrel) 50 Mg Tab 50 MG PO HS Admission Information HPI (per Admitting provider): 61-year-old male with history of gastric bypass surgery, CAD status post stent, dyslipidemia, chronic pain secondary to cervical disc disease presenting with melena times 1-1/2 weeks. Patient follows up with [facility] gastroenterology service. Patient reports 1-1/2 week history of intermittent melena associated with some epigastric pain. For the past couple of days the melena has been associated with diarrhea 6-7 episodes per day, and weakness, with some nausea. Patient denies chest pain, shortness of breath, fevers or chills, or any other symptoms. At the ER the patient's blood pressure stable. Hemoglobin is 14 baseline of 13. CAT scan of the abdomen and pelvis did not reveal any signs of acute findings. On exam the patient reports that his abdominal pain is moderate to severe. Last bowel movement was before coming to the hospital. No other symptoms. Physical Exam (per Admitting): General Appearance: WD/WN, no apparent distress Head: normocephalic, atraumatic Eyes: normal inspection, PERRL, EOMI, sclerae normal ENT: normal ENT inspection, hearing grossly normal, pharynx normal Neck: supple, no adenopathy, thyroid normal, no JVD, trachea midline Respiratory/Chest: chest non-tender, lungs clear, normal breath sounds, no respiratory distress, no accessory muscle use Cardiovascular: regular rate, rhythm, no edema, no gallop, no JVD, no murmur , normal peripheral pulses Abdomen/GI: normal bowel sounds, soft, no organomegaly, + tenderness ( Moderate tenderness to the epigastric region) Back: normal inspection, no CVA tenderness Extremities/Musculoskelatal: normal inspection, no calf tenderness, normal capillary refill, no pedal edema 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, no motor/sensory deficits, alert , normal mood/affect, normal reflexes, oriented x 3 Skin: normal color, warm/dry, no rash Lymphatic: no adenopathy Hospital Course MELENA: -known prior gastric bypass surgery with prior anastomotic ulcers -on Protonix drip -given morphine for pain -diet advanced to clears and now to solids -stop IV fluids -GI consulted, EGD showed ulceration at staple line at anastomosis site, recommend PPI BID -monitor H&H; has remained 12-13 since the initial drop from 14 -holding aspirin at this time till further recommendations from GI after EGD -Patient would like a follow up with [facility], the office was notified and they will contact the patient directly to schedule DIARRHEA: improved -check C. difficile and stool cultures -d/c fluids SINUS BRADYCARDIA WITH FIRST-DEGREE AV BLOCK -asymptomatic -avoid AV blocking meds CAD: with prior stent placement -hold aspirin for now given possible upper GI bleed -holding statin as well for diarrhea -No cardiac symptoms -not on a BB, likely due to bradycardia and AV block CHRONIC PAIN: SECONDARY TO CERVICAL DISC DISEASE -continue usual medications including baclofen and Oxycontin IR which have been continued DEPRESSION: -continue trazodone, Wellbutrin, and Cymbalta PHYSICAL EXAM: GENERAL: Patient is in no acute distress. HEENT: No acute trauma, normocephalic, mucous membranes moist, no nasal congestion, no scleral icterus. NECK: No stridor, trachea is midline. LUNGS: Clear to auscultation bilaterally, no wheeze, no rhonchi, breath sounds equal. HEART: Without murmurs gallops or rubs, regular rate and rhythm. ABDOMEN: Soft, nontender, bowel sounds positive EXTREMITIES: No cyanosis or edema, moving all extremities without pain or difficulty, no signs for acute trauma. NEUROLOGIC: Oriented x 3, no acute motor or sensory deficits, no focal weakness. SKIN: No rash, no jaundice, no diaphoresis. Total time spent on discharge = 39 This includes examination of the patient, discharge planning, medication reconciliation, and communication with other providers. Discharge Instructions See patient instructions
[2017-08-29 10:20] VITALS: BP 150/76; PULSE 51; TEMP 36.6; O2SAT 99
--- NOTE | 2017-08-29 11:15 | Gastroenterology Progress Note ---
Progress Note Date of Service: Aug 29, 2017 Subjective Pt evaluation today including: conversation w/ patient, physical exam, chart review, lab review, review of studies, review of inpatient medication list Mr. Chance Ryan is a 61-year-old male, status post gastric bypass who presented on 08/27/2017 for melena. EGD yesterday with small ulcerations near the jamarcus at the gastroenteric anastomosis without active bleeding. Hemoglobin on arrival 12.9 remained stable at 12.9 today. Patient is tolerating regular diet last night and this morning without pain or nausea or vomiting. He has not had a bowel movement since arrival. He would like to be discharged today. Review of Systems Constitutional: No fever Respiratory: No cough Cardiac: No chest pain Abdomen: + see HPI, + pain (Minimal, resolved), + GI bleeding, No nausea, No vomiting, No diarrhea, No constipation Male : No dysuria Neuro: No memory loss Psych: No depression symptoms Heme: No abnormal bleeding/bruising Endo: No fatigue Skin: No rash Medications Current Inpatient Medications Medications (Trade) Dose Ordered Sig/Annabelle Route Start Time Stop Time Status Last Admin Dose Admin Ioversol (Optiray 320) 111 ml UD PRN IV 08/26/17 20:15 08/30/17 20:14 Miscellaneous (Iv Fluids Completed) 1 ea PRN PRN N/A 08/26/17 22:30 08/26/18 22:29 Acetaminophen (Tylenol Tab) 650 mg Q4H PRN PO 08/26/17 22:30 09/25/17 22:29 Ondansetron HCl (Zofran Inj) 4 mg Q6H PRN IV 08/26/17 22:30 09/25/17 22:29 Albuterol (Ventolin Hfa Inhaler) 2 puffs QID PRN INH 08/26/17 23:00 09/25/17 22:59 Baclofen (Lioresal Tab) 10 mg TID PO 08/27/17 09:00 09/26/17 08:59 08/29/17 08:29 10 MG Duloxetine HCl (Cymbalta Cap) 20 mg DAILY PO 08/27/17 09:00 09/26/17 08:59 08/29/17 08:29 20 MG Duloxetine HCl (Cymbalta Cap) 60 mg DAILY PO 08/27/17 09:00 09/26/17 08:59 08/29/17 08:29 60 MG Ferrous Sulfate (Feosol Tab) 325 mg BID PO 08/27/17 09:00 09/26/17 08:59 Future Hold Fluticasone Propionate (Flonase Nasal [place]) 2 sprays DAILY PRN PEDRITO 08/26/17 23:00 09/25/17 22:59 Trazodone HCl (Desyrel Tab) 50 mg HS PO 08/27/17 21:00 09/26/17 20:59 08/28/17 20:50 50 MG Morphine Sulfate (MoRPHine SULFATE INJ) 3 mg Q6H PRN IV 08/26/17 23:00 09/09/17 22:59 08/29/17 01:28 3 MG Bupropion HCl (Wellbutrin-Xl Tab) 300 mg QAM PO 08/27/17 09:00 09/26/17 08:59 08/29/17 08:29 300 MG Pantoprazole Sodium 40 mg/ Dextrose 100 ml @ 20 mls/hr Q5H IV 08/26/17 23:59 09/25/17 23:58 08/29/17 06:42 20 MLS/HR Oxycodone HCl (Roxicodone Immediate Rel Tab) 20 mg Q6HWA PRN PO 08/27/17 15:45 09/10/17 00:00 08/29/17 09:27 20 MG Objective Vital Signs Date Time Temp Pulse Resp B/P (MAP) Pulse Ox O2 Delivery O2 Flow Rate FiO2 08/29/17 10:20 36.6 51 20 99 Room Air 08/29/17 07:40 36.6 51 20 150/76 (100) 99 Room Air 08/29/17 04:07 59 96 08/29/17 04:04 36.7 48 18 133/73 (93) 98 BiPAP 08/29/17 00:10 Room Air 08/28/17 23:33 36.8 54 20 138/79 (98) 95 Room Air 08/28/17 22:11 60 97 08/28/17 16:00 Room Air 08/28/17 14:52 36.9 43 18 150/76 (100) 97 Room Air Physical Exam General Appearance: no apparent distress ENT: pharynx normal Neck: supple, thyroid normal, no JVD Respiratory/Chest: lungs clear Cardiovascular: regular rate, rhythm, no JVD, no murmur Abdomen: non tender, soft Extremities: no pedal edema Neurologic/Psych: alert, normal mood/affect, oriented x 3 Skin: normal color, no jaundice, warm/dry, no rash Laboratory Results Last 24 Hours Test 08/28/17 21:20 White Blood Count 6.28 K/uL Red Blood Count 4.28 M/uL Hemoglobin 12.9 g/dL Hematocrit 38.2 % Mean Corpuscular Volume 89.3 fL Mean Corpuscular Hemoglobin 30.1 pg Mean Corpuscular Hemoglobin Concent 33.8 g/dl RDW Standard Deviation 43.6 fL RDW Coefficient of Variation 13.4 % Platelet Count 118 K/uL Mean Platelet Volume 9.9 fL Assessment and Plan Mr. Ryna is a 61-year-old male who is status post gastric bypass who presented with melena. EGD with small ulcerations near jamarcus at the gastroenteric anastomosis. Plan 1. DC Protonix drip, replace with Protonix 40 mg p.o. twice daily. 2. Continue regular consistency diet. 3. Discharge on Protonix 40 mg p.o. twice daily or other PPI. 4. Patient is being referred to surgery and did not to surgery in [place] to consider removal of sutures or minor revision on bypass.
[2017-08-31] MEDS ORDERED: TRAZ1TAB48 PO (00:39)
[2017-08-31] MEDS ORDERED: OXYC20TA32 PO (01:08)
[2017-08-31] MEDS ORDERED: WLLXL300 PO (10:04)
[2017-08-31] MEDS ORDERED: ATOR-26 PO (10:43)
[2017-08-31] MEDS ORDERED: LRS10 PO (10:47)
[2017-08-31] MEDS ORDERED: FERR325T5 PO (16:45)
[2017-08-31] MEDS ORDERED: POLY335019 PO (16:45)
[2017-08-31] MEDS ORDERED: DULO-24 PO (16:52)
[2017-08-31] MEDS ORDERED: DULO60CA44 PO (16:52)
[2017-08-31] MEDS ORDERED: FLUT0.15 NAE (16:52)
[2017-08-31] MEDS ORDERED: PRVHFAIN INH (16:54)
[2017-08-31] MEDS ORDERED: ASPCH81X PO (18:16)
[2017-08-31] MEDS ORDERED: CYNI1000 IM (18:19)
[2017-08-31] MEDS ORDERED: ACET-1693 PO (18:21)
[2017-08-31] MEDS ORDERED: NTRGSL4 UT (19:08)
[2017-09-02] MEDS ORDERED: BUSP-8 PO (13:00)
[2017-09-02] MEDS ORDERED: SUCR1TAB29 PO (13:06)
== END 2017-08-29 11:38 | disposition home or self-care (01) ==
LOC: C.EDB 19:42 → C.MED 22:18 → ENRESERV 22:55
PROVIDERS: ADMIT Internal Medicine; ATTEND Internal Medicine
DX: K92.1 Melena (principal); R19.7 Diarrhea, unspecified; Z98.84 Bariatric surgery status; K63.3 Ulcer of intestine; E78.5 Hyperlipidemia, unspecified; G89.29 Other chronic pain; I25.10 Atherosclerotic heart disease of native coronary artery without angina pectoris; R00.1 Bradycardia, unspecified; I44.30 Unspecified atrioventricular block; F32.9 Major depressive disorder, single episode, unspecified; E11.9 Type 2 diabetes mellitus without complications; G47.33 Obstructive sleep apnea (adult) (pediatric); I25.2 Old myocardial infarction; Z79.82 Long term (current) use of aspirin; Z79.899 Other long term (current) drug therapy

== ENCOUNTER 2018-11-07 18:53 | Observation (INO) ==
[2018-11-07] MEDS ORDERED: DiphenhydrAMINE HCL 50 MG/ML VIAL IV STA (19:09)
[2018-11-07] MEDS ORDERED: ONDANSETRON INJ 2 MG/ML 2 ML VIAL IV STA (19:09)
[2018-11-07] MEDS ORDERED: PROMETHAZINE HCL 6.25 MG in SODIUM CHLORIDE 0.9% 50 ML IV STA (19:09)
[2018-11-07] MEDS ORDERED: SODIUM CHLORIDE 0.9% 1000ML 1,000 ML IV SCH (19:15)
[2018-11-07] MEDS ORDERED: PROMETHAZINE 12.5 MG/50.5 ML NSS IV ONE (19:48)
[2018-11-07] MEDS: MoRPHine SULFATE 4 MG/ML 1 ML CARP\\VIAL IV PRN ×3 (20:05→22:15)
[2018-11-07 20:19] LABS: Basophils # (auto) 0.03 K/uL (0-0.2); Basophils % (auto) 0.3 %; Eosinophils # (auto) 0.42 K/uL (0-0.5); Eosinophils % (auto) 4.8 %; Hematocrit (blood only) 42.6 % (42-52); Hemoglobin 14.5 g/dL (14.0-18.0); Immature Granulocytes # (auto) 0.02 K/uL (0.00-0.02); Immature Granulocytes % (auto) 0.2 %; Lymphocytes # (auto) 1.95 K/uL (1.2-3.4); Lymphocytes % (auto) 22.5 %; Mean Platelet Volume 10.8 fL (7.4-10.4); Monocytes % (auto) 8.1 %; Neutrophils # (auto) 5.56 K/uL (1.4-6.5); Neutrophils % (auto) 64.1 %; Platelet Count 198 K/uL (130-400); RDW Coefficient of Variation 13.5 % (11.5-14.5); RDW Standard Deviation 43.7 fL (36.4-46.3); Red Blood Count 4.84 M/uL (4.7-6.1); White Blood Count 8.68 K/uL (4.8-10.8)
--- NOTE | 2018-11-07 20:20 | XRay Report ---
XR chest 1V portable HISTORY: Epigastric pain. COMPARISON: Chest 06/06/2018. FINDINGS: The lungs are clear. Cardiac silhouette is normal in size. No pleural effusions. No pneumot horax. IMPRESSION: No acute process. Electronically signed by: Umang Carranza M.D. 11/07/2018 8:18 PM
[2018-11-07 20:21] LABS: Partial Thromboplastin Ratio 0.9; Partial Thromboplastin Time 25.1 Seconds (21.0-31.0); Prothrombin Time 10.1 Seconds (9.0-12.0)
[2018-11-07 20:38] LABS: Alanine Aminotransferase 22 U/L (12-78); Albumin Level 3.6 gm/dl (3.4-5.0); Aspartate Aminotransferase 15 U/L (15-37); BUN Creatinine Ratio 26.3 (10-20); Blood Urea Nitrogen 23 mg/dl (7-18); Calcium 8.6 mg/dl (8.5-10.1); Carbon Dioxide 25 mmol/L (21-32); Chloride 111 mmol/L (98-107); Creatinine Clr Calc Pharmacy 113.4 ml/min; Est GFR (African American) 108.5; Est GFR (Non-African American) 93.6; Glucose 78 mg/dl (70-99); Lipase 291 U/L (73-393); Magnesium 2.3 mg/dl (1.8-2.4); Sodium 143 mmol/L (136-145)
[2018-11-07 20:43] LABS: Alkaline Phosphatase 103 U/L (45-117); Bilirubin,Total 0.3 mg/dl (0.2-1); Globulin 3.6 gm/dl (2.5-4.0); Total Protein 7.2 gm/dl (6.4-8.2); Troponin I < 0.015 ng/ml (0-0.045)
[2018-11-07 21:20] LABS: Appearance Urine Clear (Clear); Bilirubin Urine Negative (Negative); Blood Urine Negative (Negative); Color Urine Yellow; Glucose Urine UA Negative (Negative); Ketones Urine Trace (Negative); Leukocyte Esterase Urine Negative (Negative); Nitrite Urine Negative (Negative); Protein Urine Negative (Negative); Specific Gravity Urine 1.026 (1.000-1.030); Urobilinogen Urine Negative (Negative)
[2018-11-07] MEDS ORDERED: IOVERSOL 100ml IV PRN (21:27)
--- NOTE | 2018-11-07 21:43 | CT Scan Report ---
ABDOMEN AND PELVIS CT WITH IV CONTRAST CT DOSE: 893.97 mGy.cm HISTORY: Mid abdominal pain. poss perf or obstruction TECHNIQUE: Multiaxial CT images of the abdomen and pelvis were performed following the use of intrave nous contrast. A dose lowering technique was utilized adhering to the principles of ALARA. COMPARISON STUDY: Abdomen and pelvis CT 06/30/2018. FINDINGS: A few bibasilar linear densities consistent with subsegmental atelectasis. No pneumoperiton eum. No pneumatosis. Deformity within the medial pubic rami may be due to old trauma or congenital. T his remains unchanged. Bile duct dilatation, unchanged. This is likely due to the patient's postchole cystectomy state. No hepatic or splenic masses. The pancreas and adrenal glands unremarkable. No hydr onephrosis. Stable bilateral renal hypodense lesions. These favor cysts. No retroperitoneal lymphaden opathy. Calcified plaque within the normal caliber abdominal aorta. Postoperative changes again noted within the anterior abdominal wall. The bladder is decompressed but appears unremarkable. No pelvic free fluid. Prior gastric bypass. No bowel wall thickening or obstruction. Normal appendix. Colonic d iverticulosis. No evidence for diverticulitis. IMPRESSION: 1. No significant change compared to prior studies. 2. No bowel wall thickening or obstruction. 3. Postoperative changes as described above. Electronically signed by: Umang Carranza M.D. 11/07/2018 9:42 PM
[2018-11-07] MEDS ORDERED: FAMOTIDINE 20MG/5ML IV PUSH IV STA (22:31)
[2018-11-07] MEDS ORDERED: PHENERGAN 25MG HOMEPACK PO ONE (22:34)
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
[2018-11-08] MEDS ORDERED: PANTOprazole 80 MG in DEXTROSE 5% 100 ML IV STA (00:25)
[2018-11-08] MEDS ORDERED: FLUTICASONE PROPIONATE NA SPR 16 GM BTL PRN (01:07)
[2018-11-08] MEDS ORDERED: POLYETHYLENE (MIRALAX) 17 GM PACK PO PRN (01:07)
[2018-11-08] MEDS ORDERED: NITROGLYCERIN SL 0.4 MG/TAB TAB SL PRN (01:07)
[2018-11-08] MEDS ORDERED: CYCLOBENZAPRINE HCL 10 MG TAB PO PRN (01:07)
[2018-11-08] MEDS ORDERED: ACETAMINOPHEN 325 MG TAB PO PRN (01:07)
[2018-11-08] MEDS ORDERED: ALBUTEROL HFA 8 GM INHALER INH PRN (01:07)
[2018-11-08] MEDS: PANTOprazole 40 MG in DEXTROSE 5% 100 ML IV SCH ×3 (01:10→10:51)
[2018-11-08] MEDS: MoRPHine SULFATE 4 MG/ML 1 ML CARP\\VIAL IV PRN ×5 (01:24→14:46)
[2018-11-08] MEDS: ONDANSETRON INJ 2 MG/ML 2 ML VIAL IV PRN ×2 (01:25→07:34)
[2018-11-08] MEDS: OXYCODONE HCL IR 5 MG TAB (IMMEDIATE RELEASE) PO PRN ×6 (01:25→21:29)
[2018-11-08] MEDS: D5W AND NSS 1,000 ML IV SCH ×2 (01:32→09:39)
--- NOTE | 2018-11-08 01:53 | History and Physical Report ---
DATE OF ADMISSION: 11/08/2018 CHIEF COMPLAINT: Abdominal pain. HISTORY OF PRESENT ILLNESS: This 62-year-old male with past medical history significant for sleep apnea, hyperlipidemia, CAD status post stent in 2011 as per record, gastric bypass surgery for obesity, history of gout, history of depression, history of gastric ulcers, recently saw GI, is currently on sucralfate, Cytotec and PPI, presents with abdominal pain and nausea. He says he has chronic abdominal symptoms since last 2 years, he has had black stools on and off. He says in the last 2 days, he has black stools, but today morning he had diarrhea and it was not black, and ER, tried to check Hemoccult, but they could not get any stool sample . He was given pain medication and they tried to discharge him, but as soon as he ate food, the pain came back and we are called for admission. Currently, resting comfortably, hemodynamically stable. He says the pain is coming back and denies any vomiting, no chest pain or shortness of breath. Has some dizziness. No blurred vision. No cough, no fevers. Not feeling cold. No rash. Lives with his and grandkids. Ambulates okay otherwise. ALLERGIES: HYDROCODONE AND TRAMADOL. PAST MEDICAL HISTORY: As mentioned above. PAST SURGICAL HISTORY: EGDs, colonoscopies, colostomy, then reversed, status post EGD with biopsy, gastric bypass surgery, laparoscopic cholecystectomy, partial removal of the eye fluid, repair of inguinal hernia, shoulder surgery, arthroscopy. MEDICATIONS: The patient is currently on Protonix 40 mg p.o. b.i.d., Cytotec 200 mg p.o. 4 times daily, sucralfate 1 g p.o. a.c. and at bedtime, albuterol 2 puffs every 4 hours p.r.n., atorvastatin 80 mg p.o. daily, buspirone 5 mg p.o. b.i.d., Cymbalta 80 mg p.o. daily, Zetia 10 mg p.o. daily, ferrous sulfate 325 mg p.o. b.i.d., Flonase 2 sprays into each nostril daily, Zantac 300 mg p.o. at bedtime, trazodone 50 mg p.o. at bedtime, cyanocobalamin 300 mcg sublingual daily, Wellbutrin-XL 300 mg p.o. daily, Flexeril 10 mg p.o. t.i.d. p.r.n., oxycodone 5 mg p.o. q. 4 hours p.r.n., MiraLax 17 grams p.o. daily p.r.n., Zofran 4 mg p.o. q. 8 hours p.r.n., aspirin 81 mg p.o. daily. FAMILY HISTORY: Significant for: Father had lung cancer, eye problems, [place]. Brother has diabetes, glaucoma. Mother has diabetes. SOCIAL HISTORY: and lives with his and grandkids, smokes half pack a day for 36. Alcohol rarely. No drug use. REVIEW OF SYMPTOMS: As per HPI. Rest of review of systems is negative. PHYSICAL EXAMINATION: GENERAL: The patient is of moderate build, not in acute distress. VITAL SIGNS: Temperature 36.8, pulse 80, pulse 50, respiratory rate 18, blood pressure 138/67, oxygen 96% room air. HEENT: No pallor, no icterus. Pupils equal, round, reactive to light. NECK: No JVD, no neck masses, no carotid bruits. CARDIOVASCULAR: S1, S2 heard, regular rate and rhythm, no murmur, no gallop. RESPIRATORY SYSTEM: Normal AP diameter. No accessory muscle use. No wheezing, no crackles. ABDOMEN: Soft, bowel sounds present. Epigastric tenderness present, guarding present. No distention. CENTRAL NERVOUS SYSTEM: Cranial nerves II-XII grossly intact, nonfocal. EXTREMITIES: No edema, no erythema. LABORATORY DATA: WBC 8.6, hemoglobin 14.5, hematocrit 42.6, platelets 198. PT 10.1, INR 1, APTT 25.1. Sodium 143, potassium 4, chloride 111, CO2 of 25, BUN 23, creatinine 0.8, serum glucose 78, calcium 8.6, magnesium 2.2, total bilirubin 0.3, AST 15, ALT 22, alkaline phosphatase 103. Troponin I less than 0.015. Lipase 291. Urinalysis negative. Chest x-ray, no acute process seen. CT of abdomen and pelvis, no significant change compared to prior studies. No bowel wall thickening or obstruction. Postoperative changes seen. EKG, sinus bradycardia with first-degree AV block with rate of 56, no significant change from previous EKG. ASSESSMENT AND PLAN: This is a 62-year-old male who presents with epigastric abdominal pain. 1. Epigastric abdominal pain, history of gastric ulcer. Last EGD done on 09/15/2018 showed Savary-Dasilva grade 3 esophagitis with no bleeding was found at the gastroesophageal junction, one nonbleeding crated gastric ulcer was found at the anastomosis. The patient recently saw GI and currently on Protonix 40 b.i.d. and Cytotec 200 mg q.i.d. and sucralfate 1 gram a.c. at bedtime .He he also had some black stool, but hemoglobin is stable. Last admission, he came with black stools, but hemoglobin seems to be stable. Could not do Hemoccult, as could not get stool sample. Because of his ongoing pain and pain come back after eating food, we will keep him n.p.o. We will place on Protonix drip for now. Continue sucralfate and Cytotec, and consult GI in a.m. and IV morphine p.r.n. 2. Coronary artery disease, status post stent. We will hold his aspirin. Continue his statin and Zetia , not on b paulie most likely secondary to bradycardia. 3. History of depression. Continue Wellbutrin and Cymbalta. 4. History of obesity, status post Анна-en-Y gastric bypass surgery. 5. Deep venous thrombosis prophylaxis, sequential compression devices for now. 6. Disposition: Close monitoring in the medical floor,, level 1 full code. MTDD
[2018-11-08] MEDS: NICOTINE 21 MG/24 HR TDSY TD SCH ×2 (04:33→09:28)
[2018-11-08 07:15] LABS: Basophils # (auto) 0.03 K/uL (0-0.2); Basophils % (auto) 0.4 %; Eosinophils # (auto) 0.35 K/uL (0-0.5); Eosinophils % (auto) 5.1 %; Hematocrit (blood only) 40.2 % (42-52); Hemoglobin 13.1 g/dL (14.0-18.0); Immature Granulocytes # (auto) 0.01 K/uL (0.00-0.02); Immature Granulocytes % (auto) 0.1 %; Lymphocytes # (auto) 2.28 K/uL (1.2-3.4); Lymphocytes % (auto) 33.4 %; Mean Corpuscular Hemoglobin 29.4 pg (25-34); Mean Corpuscular Hgb Conc 32.6 g/dL (32-36); Mean Corpuscular Volume 90.1 fL (80-100); Mean Platelet Volume 9.9 fL (7.4-10.4); Monocytes % (auto) 7.3 %; Neutrophils # (auto) 3.66 K/uL (1.4-6.5); Neutrophils % (auto) 53.7 %; Platelet Count 159 K/uL (130-400); RDW Coefficient of Variation 13.7 % (11.5-14.5); RDW Standard Deviation 45.7 fL (36.4-46.3); Red Blood Count 4.46 M/uL (4.7-6.1); White Blood Count 6.83 K/uL (4.8-10.8)
[2018-11-08] MEDS: SUCRALFATE 1 GM TAB PO SCH ×4 (07:35→21:28)
[2018-11-08 07:45] LABS: BUN Creatinine Ratio 22.1 (10-20); Calcium 8.1 mg/dl (8.5-10.1); Creatinine Clr Calc Pharmacy 125.5 ml/min; Est GFR (African American) 112.9; Est GFR (Non-African American) 97.4; Magnesium 2.1 mg/dl (1.8-2.4); Potassium 3.8 mmol/L (3.5-5.1)
[2018-11-08] MEDS: DULOXETINE HCL 20 MG CAP PO SCH (09:25)
[2018-11-08] MEDS: DULOXETINE HCL 60 MG CAP PO SCH (09:26)
[2018-11-08] MEDS: FERROUS SULFATE 325 MG TAB PO SCH ×2 (09:27→17:32)
[2018-11-08] MEDS: EZETIMIBE 10 MG TABLET PO SCH (09:27)
[2018-11-08] MEDS: ATORVASTATIN 40 MG TAB PO SCH (09:27)
[2018-11-08] MEDS: CYANOCOBALAMIN 500 MCG TABLET (VITAMIN B-12) PO SCH (09:28)
[2018-11-08] MEDS: BuPROPion XL 300 MG TABCR PO SCH (09:28)
[2018-11-08] MEDS: miSOPROStol 200 MCG TAB PO SCH ×4 (09:29→21:28)
--- NOTE | 2018-11-08 14:24 | Hospitalist Progress Note ---
Date of Service November 08, 2018 Assessment & Plan (1) Chronic pain with drug dependence: Patient follows with pain management clinic and [facility] Has ongoing abdominal pain for a number of years requiring narcotic pain medication Will avoid increasing pain meds Will not be discharged with any prescription for narcotic pain medications All his pain medications should be prescribed by his pain clinic only (2) Epigastric abdominal pain: Has been ongoing, chronic for last 2 years-with possible narcotic pain medication abuse, dependency? Follows with pain clinic at [facility] Presented with epigastric pain discomfort, with report of black tarry stool H&H stable hemoglobin 13.2, no evidence of active bleed Stable vitals And reports of normal bowel movement with brown stool this morning no dark stool/blood in stool Patient is status post gastric bypass surgery Had recurrent complaint of epigastric pain and discomfort, leading to multiple admissions in the past Extensive work-up showing no evidence of any active bleeding Patient had a EGD done last admission and presents with similar GI symptoms EGD on 09/15/2018: Showed grade 3 esophagitis, nonbleeding ulcer at the gastro jejunal MS anastomotic site Has been on Protonix and Carafate GI evaluation requested In no evidence of active GI bleed, stable hemodynamics and H&H, no indication for emergent EGD Discussed with on-call GI team Diet advanced to solid, IV fluids and Protonix drip discontinued Plan to discharge home later today if able to tolerate diet (3) CAD (coronary artery disease): No evidence of chest pain shortness of breath, no angina Aspirin kept on hold for concern of GI bleed/black stool, epigastric discomfort Patient is continue with statin Has not been on beta-paulie Bradycardia (4) S/P gastric bypass: History of morbid obesity status post Анна-en-Y gastric bypass surgery (5) Dyslipidemia: Continue outpatient meds CODE STATUS: Full code DVT prophylaxis SCD and teds, Patient is encouraged to ambulate Disposition: Hospital discharge later today if able to tolerate diet no further episode of dark stool Subjective Complaints of epigastric pain which has been ongoing for years Mentions pain is 8 out of 10, twisting higher dose of IV morphine patient appears to be comfortable We will DC IV pain meds, continue with p.o. oxycodone Tolerated clear liquid diet, will be advanced to solid Plan to discharge home if able to tolerate diet No evidence of GI bleed, no nausea vomiting, vitals and H&H remained stable Patient reports of having a bowel movement with no dark starry stool Has chronic epigastric discomfort, has been ongoing for last 2 years, follows with pain management clinic at [facility] Review of Systems Review of Systems: All systems reviewed & are unremarkable except as noted in HPI & below Physical Exam Constitutional: WD/WN, vitals as above no acute distress Eyes: PERRL, conjunctivae normal, anicteric sclerae ENMT: external ear and nose normal, oropharynx normal Neck: trachea midline, no thyromegaly Respiratory: normal respiratory effort, lungs clear to auscultation Cardiovascular: RRR, no murmur, no edema Gastrointestinal (Abdomen): normal bowel sounds, soft, nontender, no hepatosplenomegaly Musculoskeletal: no cyanosis or clubbing, extremities motor strength 5/5 Skin: no rashes, warm and dry Neurologic: PERRL, EOMI, accommodation nl, no face palsy, no dysarthria Psychiatric: A+Ox3, euthymic affect Results & Data Vital Signs (Past 12 Hours) Vital Signs Temp Pulse Resp BP Pulse Ox 11/08/18 07:49 36.4 C L 48 L 16 110/73 98 (1) CAD (coronary artery disease) Associated angina: without angina Coronary Disease-Associated Artery/Lesion type: [place] artery [place] vs. transplanted heart: [place] heart Qualified Code(s): I25.10 - Atherosclerotic heart disease of [place] coronary artery without angina pectoris
--- NOTE | 2018-11-08 18:38 | Hospitalist Progress Note ---
Date of Service November 08, 2018 Subjective ADDENDUM : pt reports no feeling well after dinner having abdominal bloating , discomfort no dark stool /no bowel movement so far does not feel comfortable to be discharged home wants to stay overnight and be discharged home tomorrow morning cancelled discharge order Adelia Parks MD Results & Data Vital Signs (Past 12 Hours) Vital Signs Temp Pulse Pulse Resp BP Pulse Ox 11/08/18 16:50 36.8 C 50 L 46 L 16 133/75 96 11/08/18 14:53 36.8 C 46 L 16 133/75 96 11/08/18 07:49 36.4 C L 48 L 16 110/73 98
[2018-11-08] MEDS ORDERED: TRAZODONE HCL 50 MG TAB PO SCH (21:00)
[2018-11-09] MEDS: OXYCODONE HCL IR 5 MG TAB (IMMEDIATE RELEASE) PO PRN ×3 (01:30→09:57)
[2018-11-09] MEDS: CYANOCOBALAMIN 500 MCG TABLET (VITAMIN B-12) PO SCH (07:45)
[2018-11-09] MEDS: ATORVASTATIN 40 MG TAB PO SCH (07:45)
[2018-11-09] MEDS: FERROUS SULFATE 325 MG TAB PO SCH (07:45)
[2018-11-09] MEDS: SUCRALFATE 1 GM TAB PO SCH (07:46)
[2018-11-09] MEDS: DULOXETINE HCL 20 MG CAP PO SCH (07:46)
[2018-11-09] MEDS: EZETIMIBE 10 MG TABLET PO SCH (07:46)
[2018-11-09] MEDS: BuPROPion XL 300 MG TABCR PO SCH (07:46)
[2018-11-09] MEDS: DULOXETINE HCL 60 MG CAP PO SCH (07:46)
[2018-11-09] MEDS: NICOTINE 21 MG/24 HR TDSY TD SCH (07:47)
[2018-11-09] MEDS: miSOPROStol 200 MCG TAB PO SCH (07:47)
[2018-11-09 10:25] LABS: Hematocrit (blood only) 42.1 % (42-52); Hemoglobin 13.7 g/dL (14.0-18.0)
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
--- NOTE | 2018-11-09 11:42 | Discharge Summary ---
Date of Service November 09, 2018 Admission HPI Per Admitting Provider DICTATED BY: Lenard Menendez MD DATE OF ADMISSION: 11/08/2018 CHIEF COMPLAINT: Abdominal pain. HISTORY OF PRESENT ILLNESS: This 62-year-old male with past medical history significant for sleep apnea, hyperlipidemia, CAD status post stent in 2011 as per record, gastric bypass surgery for obesity, history of gout, history of depression, history of gastric ulcers, recently saw GI, is currently on sucralfate, Cytotec and PPI, presents with abdominal pain and nausea. He says he has chronic abdominal symptoms since last 2 years, he has had black stools on and off. He says in the last 2 days, he has black stools, but today morning he had diarrhea and it was not black, and ER, tried to check Hemoccult, but they could not get any stool sample . He was given pain medication and they tried to discharge him, but as soon as he ate food, the pain came back and we are called for admission. Currently, resting comfortably, hemodynamically stable. He says the pain is coming back and denies any vomiting, no chest pain or shortness of breath. Has some dizziness. No blurred vision. No cough, no fevers. Not feeling cold. No rash. Lives with his and grandkids. Ambulates okay otherwise. Principal Diagnosis Chronic abdominal pain Discharge Exam Constitutional WD/WN, vitals as above no acute distress Eyes PERRL, conjunctivae normal, anicteric sclerae ENMT external ear and nose normal, oropharynx normal Neck trachea midline, no thyromegaly Respiratory normal respiratory effort, lungs clear to auscultation Cardiovascular RRR, no murmur, no edema Gastrointestinal (Abdomen) normal bowel sounds, soft, nontender, no hepatosplenomegaly Musculoskeletal no cyanosis or clubbing, extremities motor strength 5/5 Skin no rashes, warm and dry Neurologic PERRL, EOMI, accommodation nl, no face palsy, no dysarthria Psychiatric A+Ox3, euthymic affect Discharge Data Allergies Allergy/AdvReac Type Severity Reaction Status Date / Time hydrocodone Allergy Severe "can't Verified 11/07/18 20:29 breathe" tramadol Allergy Intermediate RINGING IN Verified 11/07/18 20:29 EARS, ITCHY, GI UPSET Consultations 09/21/19 23:25 ED Decision to Admit Stat 11/08/18 08:00 Consult Gastroenterology Routine Ordered Studies 11/07/18 19:09 CT abd pelvis IV con only Stat Hospital Course (1) Chronic pain with drug dependence: Patient follows with pain management clinic and [facility] Has ongoing abdominal pain for a number of years requiring narcotic pain medication Will avoid increasing pain meds Will not be discharged with any prescription for narcotic pain medications All his pain medications should be prescribed by his pain clinic only Patient reports of improvement of abdominal pain today, no further episodes of dark stool, H&H stable Tolerating diet Evaluated by GI team, stable to be discharged home, (2) Epigastric abdominal pain: Has been ongoing, chronic for last 2 years-with possible narcotic pain medication abuse, dependency? Follows with pain clinic at [facility] Presented with epigastric pain discomfort, with report of black tarry stool H&H stable hemoglobin 13.2, no evidence of active bleed Stable vitals And reports of normal bowel movement with brown stool this morning no dark stool/blood in stool Patient is status post gastric bypass surgery Had recurrent complaint of epigastric pain and discomfort, leading to multiple admissions in the past Extensive work-up showing no evidence of any active bleeding Patient had a EGD done last admission and presents with similar GI symptoms EGD on 09/15/2018: Showed grade 3 esophagitis, nonbleeding ulcer at the gastro jejunal MS anastomotic site Has been on Protonix and Carafate GI evaluation appreciate input Recommends outpatient follow-up, no change in medication indicated Plan to discharge home later today if able to tolerate diet (3) CAD (coronary artery disease): No evidence of chest pain shortness of breath, no angina Aspirin resumed as there is no evidence of GI bleed, Patient is continue with statin Has not been on beta-paulie Bradycardia (4) S/P gastric bypass: History of morbid obesity status post Анна-en-Y gastric bypass surgery (5) Dyslipidemia: Continue outpatient meds CODE STATUS: Full code DVT prophylaxis SCD and teds, Patient is encouraged to ambulate Disposition: Stable to be discharged home today Total Time Total Time Spent Total Time Spent (In Minutes): Approximate 35 minutes Total Time Includes: Examination of the Patient, Discharge Planning, Medication Reconciliation and Communication With Other Providers Discharge Plan Discharge Items Patient Disposition: Home - Self-Care Reason For Visit: ABDOMINAL PAIN Discharge Diagnosis: CHRONIC ABDOMINAL PAIN Condition on Discharge: Good Activity: Resume your previous activity Non-emergency contact: Primary Care Provider Call non-emergency contact if: you have any medication questions Follow-up/Referrals: Jean Villarreal MD [Primary Care Provider] - 11/13/18 9:45 am Theresa Krishnamurthy [Physician] - Diet: Heart Healthy Addtl Attending Provider Instructions: Hospital follow-up with Dr. Riojas this 11/13/2018 at 9:45 AM DO NOT TAKE ALEVE, ADVIL , MOTRIN , NAPROXEN ,IBUPROPHEN - can take low dose aspirin 81 mg daily ( take with food ) Follow-up with pain management clinic for your chronic pain control Follow-up with gastroenterology Dr. Krishnamurthy in clinic, office will call with appointment Outpatient EGD will be scheduled by GI office Pending Studies at Discharge: No Stand-Alone Forms: Call Back Authorization, [facility] [place] [facility], Opioid Pain Management Medications and DC Order Prescriptions: Continued atorvastatin 80 mg Tablet 80 mg PO QAM Qty: 0 RF: 0 trazodone 50 mg Tablet 50 mg PO HS Qty: 0 RF: 0 bupropion HCl 300 mg Tablet Extended Release 24 Hr 300 mg PO QAM Qty: 0 RF: 0 ferrous sulfate 325 mg (65 mg iron) Tablet 325 mg PO BIDM Qty: 0 RF: 0 polyethylene glycol 3350 17 gram/dose Powder 17 g PO DAILY PRN (Reason: Constipation) Qty: 0 RF: 0 fluticasone propionate [Flonase Allergy Relief] 50 mcg/actuation [place],Suspension 2 spray INTRANASAL DAILY PRN (Reason: Allergy Symptoms) Qty: 0 RF: 0 duloxetine 20 mg Capsule,Delayed Release(Dr/Ec) 20 mg PO QAM Qty: 0 RF: 0 duloxetine 60 mg Capsule,Delayed Release(Dr/Ec) 60 mg PO QAM Qty: 0 RF: 0 albuterol sulfate [Ventolin HFA] 90 mcg/actuation Hfa Aerosol Inhaler 2 puff INHALATION Q6H PRN (Reason: Shortness Of Breath Or Wheezing) Qty: 0 RF: 0 nitroglycerin 0.4 mg Tablet, Sublingual 0.4 mg Sublingual DIRECTED PRN (Reason: Chest Pain) Qty: 0 RF: 0 aspirin [Amada Chewable Aspirin] 81 mg Tablet,Chewable 81 mg PO QAM Qty: 0 RF: 0 oxycodone 5 mg Tablet 5 mg PO Q4 PRN (Reason: Pain) RF: 0 ranitidine HCl 300 mg Tablet 300 mg PO HS RF: 0 Xtampza ER 9 mg Cap,Sprinkl,Er12hr(Dont Crush) 9 mg PO BID RF: 0 pantoprazole [Protonix] 40 mg Tablet,Delayed Release (Dr/Ec) 40 mg PO BID RF: 0 acetaminophen 500 mg Tablet 1,000 mg PO Q6H PRN (Reason: Fever Or Pain) RF: 0 cyclobenzaprine 10 mg Tablet 10 mg PO TID PRN (Reason: Muscle Spasm) RF: 0 Vitamin B-12 1,000 mcg/mL Drops 1,000 mcg PO QAM RF: 0 buspirone 5 mg Tablet 5 mg PO BID RF: 0 ezetimibe [Zetia] 10 mg Tablet 10 mg PO QAM RF: 0 sucralfate 1 gram Tablet 1 g PO ACHS RF: 0 Cytotec 200 mg 200 mg PO QID RF: 0 Discharge Orders: Discharge Order (Routine); Ordered 11/09/18 Ordered By: Adelia Reza/Other Patient Handouts: Foods Heart Healthy Admission Data Admit Date/Time: 11/08/18 00:18 Attending Provider: Adelia Parks Admit Provider: Lenard Menendez Primary Care Provider: Jean Villarreal Other Providers: Lenard Menendez ; Laurel Kessler Other Interventions: Discharge Summary Assessment (RN) Last Done: 11/09/18 10:56 DC Date/Time DO NOT enter until pt leaves facility: 11/09/18 11:38
== END 2018-11-09 11:38 | disposition home or self-care (01) ==
LOC: 3W 18:53 → ED 18:53 → 3W 11-08 00:48